=== PATIENT | female | born 1990 | race Caucasian/White ===

== ENCOUNTER → 2017-07-29 13:30 | Outpatient (CLI) | payer OTHER, SELFPAY ==
[2017-07-29 16:00] LABS: Hemoglobin 12.1 g/dl (12.0-15.0); Mean Corp Hgb Conc 32.7 g/gl (32-36); Mean Corpuscular Hgb 22.7 pg (27.0-32.0); Mean Corpuscular Volume 69.3 fL (81-99); Platelet Count 180 K/mm3 (150-450); RBC Distribution Width CV 14.7 % (11.6-14.6); RBC Distribution Width SD 36.4 fl (35.1-43.9); Red Blood Count 5.34 M/mm3 (4.2-5.4); Scan Indicated on CBC? Y/N YES- FLAGS NOTED; White Blood Count 6.5 K/mm3 (4.4-11.0)
[2017-07-29 16:13] LABS: PTHIN 45.7 pg/mL (18.4-80.1); Vitamin B12 492 pg/mL (211-911); Vitamin D,25 Hydroxy 72.1 ng/mL (29.95-100.01)
[2017-07-29 16:36] LABS: Differential Comment SEE COMMENTS
[2017-07-29 16:51] LABS: ALB/GLOB Ratio 0.9 RATIO (0.9-2.4); AST(SGOT) 12 U/L (15-37); Alanine Aminotransfer ALT/SGPT 23 U/L (13-56); Albumin, Serum 3.5 g/dL (3.2-5.0); Alkaline Phosphatase 39 U/L (45-117); Anion Gap 8 (5-15); BUN 19 mg/dL (7-18); BUN/Creat Ratio 23.1 RATIO (10-20); Calcium,Total 8.9 mg/dL (8.5-10.1); Chloride 105 mmol/L (98-107); Cholesterol 160 mg/dL (200); Creatinine, Serum 0.82 mg/dL (0.55-1.02); EST Glomerular Filtration Rate 88 mL/min (>60); Est Glom Filt Rate - Afr Amer 106 mL/min (>60); Ferritin 62 ng/mL (8-252); Globulin 3.7 g/dL (2.2-4.2); Glucose 79 mg/dL (74-106); High Density Lipoprotein 59 mg/dL; Iron 65 ug/dL (50-170); Iron Binding Capacity,Total 315 ug/dL (250-450); Magnesium 2.1 mg/dL (1.6-2.6); Protein, Total 7.2 g/dL (6.4-8.2); Sodium Level 138 mmol/L (136-145); Thyroid Stim Hormone (TSH) 2.16 uIU/mL (0.358-3.74); Triglycerides 198 mg/dL; Very Low Density Lipoprotein 40 mg/dL (5-40)
[2017-08-02 20:09] LABS: Zinc, WHOLE BLOOD 754 ug/dL (440-860)
[2017-08-05 13:05] LABS: Vitamin B1, Thiamine 176.8 nmol/L (66.5-200.0)
== END ==
LOC: BFHLAB 13:34 → MTLAB 13:56
PROVIDERS: Family Provider Family Medicine; PCP Family Medicine
DX: Z98.84 Bariatric surgery status (principal)
CPT/HCPCS: 36415; 80053; 80061; 82306; 82607; 82728; 82746; 83540; 83550; 83735; 83970; 84425; 84443; 84630; 85027

== ENCOUNTER → 2017-11-04 09:28 | Outpatient (CLI) | payer OTHER, SELFPAY ==
--- NOTE | 2017-11-04 09:31 | US_ITS ---
STUDY: ABDOMINAL ULTRASOUND - RIGHT UPPER QUADRANT REASON FOR VISIT: Female, 27 years old. Vertebral quadrant pain TECHNIQUE: Ultrasound evaluation of the right upper quadrant was performed with real-time and static reilly-scale imaging. TECHNICAL QUALITY: Adequate. COMPARISON: CT January 12, 2014. FINDINGS: Liver: The liver measures 12.2 cm. There is normal echogenicity of the liver. The bile ducts are within normal limits. There is hepatic color flow. The direction of portal flow is hepatopetal. There is no demonstrated mass lesion. Gallbladder: Normal distended gallbladder. The gallbladder wall measures 2.8 mm. There is a negative sonographic Mack's sign. There is no pericholecystic fluid. There is biliary sludge dependent within the gallbladder. Common Bile Duct (C.B.D.): The common bile duct measures 3.9 mm. Pancreas: Normal size of the head, body and tail of the pancreas. There is normal echogenicity of the pancreas. There is no demonstrated pancreatic mass or cyst. Right Kidney: Normal size of the right kidney. The right kidney measures 10.5 x 3.6 x 5.3 cm. Normal renal cortex. The right cortex measures 1.2 cm. There is no demonstrated renal mass or cyst. There is no right hydronephrosis. US/Abdomen Limited IMPRESSION: There is biliary sludge dependent within the gallbladder. Electronically Signed: Stuart Moulton MD at 20:12 EDT , Service support ,
== END ==
PROVIDERS: Family Provider Family Medicine; PCP Family Medicine; Visit Provider Family Medicine
DX: R10.11 Right upper quadrant pain (principal)
CPT/HCPCS: 76705

== ENCOUNTER 2017-11-15 09:26 | Day surgery (SDC) | payer OTHER, SELFPAY ==
[2017-11-15] VITALS (8 sets, daily range): BP systolic 85–101; BP diastolic 57–76; PULSE 55–76; RESP 16–18; TEMP 36.2–36.7; O2SAT 99–100; BMI 20.3
[2017-11-15 09:48] LABS: Internal QC Validated? YES +Cl - CLEAR BKGD; Pregnancy, Urine Negative Negative
--- NOTE | 2017-11-15 11:56 | PCM.OPRPT ---
Problem List (1) Epigastric abdominal pain Status: Acute (2) History of Jaki-en-Y gastric bypass Status: Acute Report of Operation Date of Procedure: 11/15/17 Pre-Operative Diagnosis: Epigastric pain and history of Jaki-en-Y gastric bypass. Possible marginal ulcer Post-Operative Diagnosis: History of Jaki-en-Y gastric bypass Surgery/Procedure Performed:: EGD Description of Procedure: The major risks and benefits associated with the procedure were explained to the patient in detail. The patient verbalized understanding and agreement with the same. The patient was then placed in the left lateral decubitus position. IV sedation was started by anesthesia. The endoscope was then advanced under direct visualization over the tongue, into the esophagus and down to the stomach. The stomach pouch was identified as was the anastomosis of the Jaki limb. The GE junction appeared normal. The stomach mucosa appeared normal. At the anastomosis there were 2 visible daniele but no visible ulceration. The Jaki limb was identified in the first 6-12 inches were inspected and the mucosa appeared normal. The scope was retracted into the GE junction and the GE junction appeared normal. The scope was slowly retracted through the esophagus the esophageal mucosa appeared normal as well. Recommendations: I recommend the patient continue her PPI for at least 6 weeks. If this does not help Carafate can be added but as there was no ulcer I do not believe it is needed. I still recommend the patient stop smoking and she says she stopped 2 days ago.
== END 2017-11-15 12:35 | disposition home or self-care (01) ==
LOC: EN 09:27 → AC 09:37
PROVIDERS: Anesthesiology; Family Provider Family Medicine; PCP Family Medicine; Visit Provider Surgery
PROC: 0DJ08ZZ Inspection of Upper Intestinal Tract, Via Natural or Artificial Opening Endoscopic (ICD-10-PCS; CPT 43235; principal; 2017-11-15 10:55)
DX: R10.13 Epigastric pain (principal); Z98.84 Bariatric surgery status; K21.9 Gastro-esophageal reflux disease without esophagitis; E03.9 Hypothyroidism, unspecified; G47.30 Sleep apnea, unspecified; D64.9 Anemia, unspecified; Z79.899 Other long term (current) drug therapy; F17.200 Nicotine dependence, unspecified, uncomplicated; Z87.891 Personal history of nicotine dependence
CPT/HCPCS: 43235; 81025; J7120

== ENCOUNTER 2017-11-21 12:50 | Day surgery (SDC) | payer OTHER, SELFPAY ==
[2017-11-21 13:09] LABS: Internal QC Validated? YES +Cl - CLEAR BKGD; Pregnancy, Urine Negative Negative
[2017-11-21 13:19] VITALS: BP 100/60; PULSE 61; RESP 16; TEMP 37; O2SAT 100; BMI 20.2
[2017-11-21 13:24] LABS: Hematocrit 40.3 % (37-47); Hemoglobin 13.6 g/dl (12.0-15.0); Mean Corp Hgb Conc 33.7 g/gl (32-36); Mean Corpuscular Hgb 23.5 pg (27.0-32.0); Mean Corpuscular Volume 69.6 fL (81-99); Mean Platelet Vol. 10.5 fl (6.2-12.0); Platelet Count 189 K/mm3 (150-450); RBC Distribution Width CV 14.9 % (11.6-14.6); RBC Distribution Width SD 37.6 fl (35.1-43.9); Red Blood Count 5.79 M/mm3 (4.2-5.4); White Blood Count 5.5 K/mm3 (4.4-11.0)
[2017-11-21 13:26] LABS: Scan Indicated on CBC? Y/N YES- FLAGS NOTED
[2017-11-21 13:42] LABS: Differential Comment SCANNED
[2017-11-21 13:46] LABS: Thyroid Stim Hormone (TSH) 0.08 uIU/mL (0.358-3.74)
--- NOTE | 2017-11-21 15:05 | GALL_PTH ---
PATIENT: [place] RICE LOC: [facility] [place] U#:[id number] AGE/SX: 27/F ROOM: RE11/21/[address]: Dr. Gerson Mendez MD : 1990 BED: DIS: 11/21/2017 SPEC #: [id number] RECD: 11/22/17 10:20 STATUS: JO MILTON #: [id number] CRISTOPHER: 11/21/17 15:[address]: Gerson Mendez DEPT: SURGICAL PATHOLOGY RECD BY: Brian Deng ENTERED: 11/22/17 11:29 SP TYPE: ROCHELLE HOYT DR: Dr. Isaias Bruno MD Tissues: Gallbladder, NOS Procedures: Surgery Specimen Level III HEADER OPERATION: Laparoscopic cholecystectomy with IOC PRE-OP DIAGNOSIS: Right upper quadrant pain, nausea, diarrhea TISSUE SUBMITTED: Gallbladder and contents MICROSCOPIC DIAGNOSIS Gallbladder and contents: Mild chronic cholecystitis and focal cholesterolosis. No stones are identified in the container or in the gallbladder. SJ:shahid 11/25/17 COMMENT The gallbladder contains minimal amount of sludge material. MICROSCOPIC DESCRIPTION Slides are reviewed. GROSS DESCRIPTION Received is one container labeled with the patient's name and designated gallbladder. The specimen consists of a gallbladder measuring 9 x 3.2 x 3.2 cm. The external surface is smooth and glistening. Focally, it is granular, hemorrhagic and contains cautery artifact. The lumen of the gallbladder contains minimal sludge and no calculi. The mucosa is bile-stained and without any mass lesions. The gallbladder wall averages 0.1 cm in thickness and is free of mass lesions. [employer] sections of the gallbladder and the cystic duct are submitted in one cassette. / AM:shahid 11/22/17 TC:3 CPT: 54015
[2017-11-21] MEDS: Bupivacaine 0.25% 30 ML Vial (15:47)
--- NOTE | 2017-11-21 15:47 | PCM.OPRPT ---
Problem List (1) Biliary colic Status: Acute (2) Biliary sludge Status: Acute Report of Operation Date of Procedure: 11/21/17 Pre-Operative Diagnosis: Biliary sludge and biliary colic Post-Operative Diagnosis: Same Surgery/Procedure Performed:: Laparoscopic cholecystectomy with cholangiogram Specimen's removed: Gallbladder and contents Description of Procedure: After obtaining informed consent patient was brought back to the operating room. General anesthesia was induced. The abdomen was prepped and draped in usual sterile fashion. A small midline incision was made superior to the umbilicus and deepened to the level of fascia. The fascia was elevated and incised. Next the peritoneum was elevated and incised in the same fashion. Finger sweep was performed and the Cheney trocar was placed into the abdomen. The balloon was inflated. The abdomen was inflated to 15 mmHg. Next a camera was introduced into the abdomen and the abdomen was inspected. Next under direct visualization three 5-mm ports were placed one subxiphoid and 2 subcostal. The Jaki limb was identified and traced back up to the gastric remnant and then traced downward. There were no adhesions or bowel containing Petersons space. The Jaki limb was traced back to the small bowel anastomosis which appeared intact with no scarring or adhesions. The mesentery was intact. Next the gallbladder was elevated and retracted toward the right shoulder. The peritoneum was stripped from the gallbladder. The infundibulum was located and retracted laterally. Next the triangle of Calot was dissected and the cystic duct and cystic artery were identified. Cholangiograms were performed. The Goncalves catheter was used to clamp across the infundibulum and the needle was inserted into the gallbladder. Under fluoroscopy contrast was instilled into the gallbladder and the common duct, cystic duct as well as proximal hepatic ducts were identified. There was good filling of the duodenum. There were no filling defects noted in the common bile duct. The clamp was removed as well as the needle and the infundibulum was grasped once more. Three hemolock clips were placed across the cystic duct. The cystic duct was then divided leaving 2 clips on the stump. The cystic artery was clipped and divided in the same fashion. The hook cautery was then used to take the gallbladder off of the gallbladder bed. Hemostasis was obtained. Gallbladder fossa was irrigated and no active bleeding or bile leakage was noted. Next the camera switched to a 5 mm camera and introduced in the subxiphoid port. An [employer] bag was placed through the umbilical port and the gallbladder was placed into it. The gallbladder was then removed through the umbilical incision. The camera was then reinserted through the umbilical port. The gallbladder fossa was inspected once more and noted to be hemostatic with no leaking bile. The abdomen was suctioned dry the 5 mm ports were removed under direct visualization. The umbilical port was then removed and the air was removed from the abdomen. Next using an 0 Vicryl suture the umbilical fascia was closed in a [id number] fashion. The umbilical port site was irrigated local anesthetic was administered to all the incisions. All the incisions were closed subcuticular 4-0 Monocryl sutures followed by Steri-Strips and dressings. The patient was awoken and taken to PACU in stable condition.
--- NOTE | 2017-11-21 15:52 | PCM.DC.GB ---
Discharge Diet: Light diet - advance as tolerated Discharge Activity: Return to Normal Activity, May Not Drive - for 2-3 days or while taking narcotic pain medicataions., - - Do not drive, work heavy equipment or sign legal documents for 24 hours. May shower in (days): 1 - with the bandage in place. Lifting Restrictions: 20 lbs for 2 weeks Additional Activity Instructions:: Pain medication may cause nausea. You should typically eat light foods as you take your pain medications. Pain medication may also cause constipation. If this is a problem for you, please discuss with your doctor. Call your doctor if your incision/area has: Continuous Slow Oozing, Sudden Increased Bleeding, Increased Pain/ Swelling, Increased Redness, Foul Smelling Discharge, Fever of 101 or Higher Call your doctor if you observe: Fever of 101 or Higher Suture Line Care: Avoid Pulling/Pushing, Avoid Pinching/Bending Additional Dressing/Incision Instructions:: Leave operative bandaids on for 2 days. When you remove dressing, leave Steri-Strips on until your follow-up appointment, or until the Steri-Strips fall off on their own. Allergies/Adverse Reactions: Allergies Penicillins Allergy (Verified 11/19/17 08:13) Hives Medications to take at Discharge Omeprazole [Prilosec] 20 mg PO QHS 01/11/14 calcium citrate 200 mg (950 mg) tablet 200 mg PO QDAY tab 11/11/17 levothyroxine 50 mcg tablet 75 mcg PO DAILY tab 11/11/17 multivitamin,lv-ymej-xaekmnlz tablet 1 tab PO QDAY 11/11/17 Oxycodone HCl/Acetaminophen [Percocet 5/325] 1 - 2 tablet PO Q4H PRN PRN 7 Days #30 tablet 11/21/17 The following prescriptions were given: Oxycodone HCl/Acetaminophen [Percocet 5/325] 1 - 2 tablet PO Q4H PRN PRN 7 Days #30 tablet PRN Reason: Pain Primary Care Physician: Isaias Bruno MD [Primary Care Provider] - Test Results: Test results from this visit will be discussed in further detail at your follow-up appointment, if applicable. Please Follow Up With: Gerson Mendez MD When: Please call to schedule 2 week follow up appointment. [phone]
[2017-11-21 16:03] VITALS: BP 100/60; BP 117/33; PULSE 58; RESP 16; TEMP 36.6; O2SAT 100
[2017-11-21 16:15] VITALS: BP 100/60; BP 96/71; PULSE 51; RESP 16; O2SAT 100
[2017-11-21 16:30] VITALS: BP 100/60; BP 97/64; PULSE 55; RESP 16; O2SAT 98
[2017-11-21 16:45] VITALS: BP 100/60; BP 102/67; PULSE 59; RESP 16; TEMP 36.4; O2SAT 100
[2017-11-21 18:00] VITALS: BP 100/60; BP 96/67; PULSE 58; RESP 18; TEMP 36.4; O2SAT 97
== END 2017-11-21 18:02 | disposition home or self-care (01) ==
LOC: SDC 12:51 → AC 12:52
PROVIDERS: Family Provider Family Medicine; PCP Family Medicine; Visit Provider Surgery
PROC: (CPT 47610; principal; 2017-11-21 14:45)
DX: K80.44 Calculus of bile duct with chronic cholecystitis without obstruction (principal); K83.9 Disease of biliary tract, unspecified; K21.9 Gastro-esophageal reflux disease without esophagitis; E03.9 Hypothyroidism, unspecified; G47.30 Sleep apnea, unspecified; D64.9 Anemia, unspecified; Z98.84 Bariatric surgery status; Z79.899 Other long term (current) drug therapy; F17.200 Nicotine dependence, unspecified, uncomplicated
CPT/HCPCS: 00790; 47563; 74300; 76000; 81025; 84443; 85027; 88304; 93005; J7120; J2405

== ENCOUNTER 2017-11-23 21:25 | Inpatient (IN) | payer OTHER, SELFPAY ==
[2017-11-23 21:26] VITALS: BP 135/98; PULSE 75; RESP 22; TEMP 36.8; O2SAT 98; BMI 21.3
[2017-11-23] MEDS: Ondansetron 4 MG/2 ML Vial IV (21:36)
[2017-11-23] MEDS: Morphine 4 MG/ML Syringe IV ×2 (21:36→22:21)
[2017-11-23] MEDS: 0.9% Normal Saline 1,000 ML 250 ML IV (22:04)
[2017-11-23 22:09] LABS: Absolute Lymphocyte Count 4.99 X10^3/ul (0.83-4.51); Absolute Neutrophil Count 5.6 X10^3/uL (2.0-7.7); Basophil# 0.02 X10^3/uL; Basophil% 0.2 % (0-1); Eosinophil# 0.15 X10^3/uL; Eosinophils% 1.3 % (0-5); Hematocrit 43.8 % (37-47); Hemoglobin 14.7 g/dl (12.0-15.0); Lymphocyte # 4.99 X10^3/ul (4.0); Lymphocyte % 44.1 % (19-41); Mean Corp Hgb Conc 33.6 g/gl (32-36); Mean Corpuscular Hgb 23.4 pg (27.0-32.0); Mean Corpuscular Volume 69.6 fL (81-99); Mean Platelet Vol. 12.1 fl (6.2-12.0); Monocyte# 0.59 X10^3/uL; Monocyte% 5.2 % (0-10); Neutrophil # 5.55 X10^3/uL (2.7-7.7); Neutrophil % 49.1 % (47-70); Platelet Count 221 K/mm3 (150-450); RBC Distribution Width CV 14.8 % (11.6-14.6); RBC Distribution Width SD 37.2 fl (35.1-43.9); Red Blood Count 6.29 M/mm3 (4.2-5.4); White Blood Count 11.3 K/mm3 (4.4-11.0)
[2017-11-23 22:10] LABS: Differential Indicated SCAN CRITERIA MET; POSITIVE COUNT NO; POSITIVE DIFFERENTIAL NO; POSITIVE MORPHOLOGY YES
[2017-11-23 22:14] LABS: AST(SGOT) 46 U/L (15-37); Alanine Aminotransfer ALT/SGPT 99 U/L (13-56); Albumin, Serum 4.5 g/dL (3.2-5.0); Alkaline Phosphatase 56 U/L (45-117); Anion Gap 4 (5-15); BUN 12 mg/dL (7-18); BUN/Creat Ratio 12.1 RATIO (10-20); Bilirubin, Direct 0.13 mg/dL (0.00-0.30); Calcium,Total 9.6 mg/dL (8.5-10.1); Chloride 102 mmol/L (98-107); Creatinine, Serum 0.99 mg/dL (0.55-1.02); EST Glomerular Filtration Rate 71 mL/min (>60); Est Glom Filt Rate - Afr Amer 86 mL/min (>60); Estimated Creatinine Clearance 69.98 ml/min; Globulin 4.4 g/dL (2.2-4.2); Glucose 93 mg/dL (74-106); Lipase 126 U/L (73-393); Potassium 3.7 mmol/L (3.5-5.1); Protein, Total 8.9 g/dL (6.4-8.2); Sodium Level 140 mmol/L (136-145)
[2017-11-23 22:37] LABS: Differential Comment SCANNED
[2017-11-23 22:43] LABS: Bacteria 0 SEEN /hpf (None Seen); Mucous, Urine 0 SEEN /hpf (<or=2+); Red Blood Cells-Urine 0 SEEN /hpf (0-5)
[2017-11-23 23:04] LABS: Color, Urine Yellow (Yellow); Glucose, Dipstick Normal (Normal); Ketone-Dipstick Negative (Negative); Leukocyte Esterase-Dipstick 25 /ul (Negative); Nitrite-Dipstick Negative (Negative); Occult Blood-Urine Negative /ul (Negative); Protein-Dipstick Negative (Negative); Specific Gravity, Urine 1.015 (1.002-1.030); Urine Bilirubin Dipstick Negative (Negative); Urine Clarity Clear (Clear); Urine Urobilinogen Normal (Normal); Urine pH 6.5 (5.0 - 8.0)
[2017-11-23 23:11] LABS: Squamous Epithelial Cells - UA 0-5 SEEN /hpf (5-10); White Blood Cells 0-5 SEEN /hpf (0-5)
--- NOTE | 2017-11-23 23:11 | ED.VISSUMM ---
- ER Visit Summary Date of Service: 11/23/17 Chief Complaint: Severe acute right upper quadrant abdominal pain with nausea History of Present Illness: The patient is a 27 F who presents with acute right upper quadrant pain with nausea. She is status post laparoscopic cholecystectomy by Dr. Gerson [place] on , November 21, 2017. She denies fever, chills night sweats. Denies visual, ocular auditory symptoms. Denies chest pain. She denies shortness of breath, cough difficulty breathing. Denies orthopnea PND. She denies dysuria, frequency, urgency or hematuria. Denies trauma. No skin lesions. Physical Examination: Patient appears in obvious discomfort. Blood pressure slightly elevated 135/98 and respirations 22. Pulse ox is 98% on room air. Head is atraumatic normocephalic. Pupils are equal round reactive. Extraocular muscles are intact. TMs are pearly white with landmarks noted. Nares patent with no drainage. Posterior pharynx without erythema or exudate. Uvula is midline. There is no dysphonia or dysphasia. Trachea is midline. There is no stridor with auscultation of the neck. Heart is regular without murmur, gallop or rub. S1 and S2 are normal. Lungs are clear to auscultation with good movement of air bilaterally. Abdomen is firm with involuntary guarding. She has pain to percussion. There is no CVA tenderness noted. There is no skin lesions noted. Port sites are without infection i.e. erythema, warmth, induration, fluctuance or any drainage. Neuro exam is nonfocal. Test Results: White count is elevated at 11.3 with no shift. Basic minimal panel is marked for an elevated CO2 34. Hepatic profile is marked for an elevated ALT and AST of 99 and 46 respectively. Urine is unremarkable. CT of the abdomen revealed air-fluid levels and suggestive of ileus. There is small amount of fluid noted in the gallbladder fossa. There is an abnormality noted right lobe of the liver. Formal radiology report is pending. Dr. Cloud will follow-up CT results. Emergency Department Course and Treatment: IV was established. She received 4 mg of morphine and 4 mg of Zofran IV push. She required additional dose of morphine prior to transport to radiology suite. After discussion with Dr. Mendez he requested CT of the abdomen pelvis with p.o. and IV contrast. Treatment Plan: The CT of the abdomen pelvis with contrast was reviewed with Dr. Cloud. Patient will be admitted to his service. Disposition: Admit medical surgical unit Impression: 1. Postop abdominal pain status post laparoscopic cholecystectomy 2. Ileus versus early small bowel obstruction 3. Elevated transaminases status post cholecystectomy This note was generated with [employer] dictation software. It may contain incorrect words, spelling, and punctuation that were not noted in review of the chart prior to signing ED Disposition - Plan for ED Patient: Disposition: Acute Care Hospital [facility] Chief Complaint: Abd Pain
[2017-11-23 23:43] VITALS: PULSE 73; PULSE 75; RESP 18; O2SAT 98
[2017-11-23] MEDS: morphine 8 MG/ML Syringe 6 MG IV (23:47)
[2017-11-24] VITALS (9 sets, daily range): BP systolic 97–113; BP diastolic 67–80; PULSE 70–101; RESP 16–20; TEMP 37.1–38.2; O2SAT 95–100; BMI 21.6
--- NOTE | 2017-11-24 00:08 | PCM.HP.STD ---
Problem List (1) Postoperative ileus Status: Acute History of Present Illness Date of Admission: 11/24/17 The patient is a 27 year old F who had a recent laparoscopic cholecystectomy 2 days ago. The patient reports yesterday she was feeling okay but this morning she started having right sided flank pain as well as right upper quadrant pain. She is also having nausea but no vomiting. She does not report any fevers or chills. She says the pain radiates to the back. She says she has not had a bowel movement in 4 days. She is passing flatus and belching. Past Medical History Medical History: Medical History (Last Updated 11/11/17 @ 09:35 by Ely Hood) Anemia D64.9 Anxiety F41.9 GERD (gastroesophageal reflux disease) K21.9 Hypothyroidism E03.9 Sleep apnea G47.30 Allergies Penicillins Allergy (Verified 11/23/17 21:29) Hives Home Medications: Ambulatory Orders Medication Instructions Recorded Omeprazole [Prilosec] 20 mg PO QHS 01/11/14 calcium citrate 200 mg (950 mg) 200 mg PO BID tab 11/11/17 tablet levothyroxine 50 mcg tablet 75 mcg PO DAILY tab 11/11/17 multivitamin,ij-pjaq-hifxuwlj 1 tab PO BID 11/11/17 tablet Oxycodone HCl/Acetaminophen 1 - 2 tablet PO Q4H PRN PRN 7 Days 11/21/17 [Percocet 5/325] #30 tablet Surgical History: Surgical History (Last Updated 11/11/17 @ 09:36 by Ely Hood) History of Jaki-en-Y gastric bypass Z98.84 History of esophagogastroduodenoscopy (EGD) Z98.890 Surgical History: cholecystectomy, - - Jaki-en-Y gastric bypass Smoking Status: Former smoker - *Family History Maternal Family History: Family History (Last Reviewed 11/24/17 @ 00:10 by Gerson Mendez MD) Father Diabetes Grandmother Breast cancer Colon cancer Grandfather Hypertension Heart disease Review of Systems Constitutional: Denies: Anorexia, Chills, Fever HEENT: Denies: Difficulty Swallowing Cardiovascular: Denies: Chest Pain Respiratory: Denies: Cough, Shortness of Breath Gastrointestinal: Reports: Abdominal Pain, Constipation, Nausea. Denies: Diarrhea, Hematemesis, Vomiting Genitourinary: Denies: Dysuria Musculoskeletal: Denies: Joint swelling, Joint Tenderness Skin: Denies: Jaundice Neurological: Denies: Balance problems, Difficulty swallowing Psychiatric: Denies: Anxiety, Depression Hematologic/ Lymphatic: Denies: Anemia VTE Information - Inpt Only VTE Present on Admission: No VTE Mechan Device Prophylaxis: SCD's Patient Problems: Active and Suspected Problems (Last Updated 11/11/17 @ 09:35 by Ely Hood) Postoperative ileus (Acute) - Physical Exam General: Alert, Oriented x3, Cooperative HEENT: PERRLA, EOMI Neck: No JVD Lungs: Normal air movement Cardiovascular: Regular rate, Regular Rhythm Abdomen: Soft, Distended, Tender - Right abdominal tenderness in the upper and lower quadrants., - - Incisions are clean dry and intact with no erythema or ecchymosis. Musculoskeletal: No Muscle Wasting Lymphatic: No Cervical, Supraclavicular, or Inguinal Adenopathy Neurological: Cranial nerves II-XII grossly intact Psych/Mental Status: Normal Affect, Appropriate Vital Signs Temp Pulse Resp BP Pulse Ox 98.3 F 75 18 135/98 H 98 11/23/17 21:26 11/23/17 23:43 11/23/17 23:43 11/23/17 21:26 11/23/17 23:43 Clinical Impression(s) from Imaging Studies Abdomen/Pelvis CT 11/23/17 21:41 IMPRESSION: 1. Moderate free air and mild free fluid, consistent with recent surgery. 2. Wedge-shaped defects in the periphery of the right lobe of the liver, suspicious for focal infarcts. 3. Ileus pattern. Electronically Signed: Heidi Tang MD at 23:57 EDT Tel , Service support , Assessment/Plan All Active Problems (Last Updated 11/11/17 @ 09:35 by Ely Hood) Epigastric abdominal pain (Acute) History of Jaki-en-Y gastric bypass (Acute) Biliary colic (Acute) Biliary sludge (Acute) Postoperative ileus (Acute) 27-year-old female with postoperative ileus 1. The patient reports that she developed right flank pain which was worsening today as compared to yesterday. She reports that she is passing flatus but is also belching. She says she has not had a bowel movement in 4 days. 2. The patient had a CT scan and on CT scan there is minimal abdominal fluid. Her LFTs are normal except for a mildly elevated AST and ALT. I am less suspicious for a biliary leak as IM for constipation and ileus. The CT scan showed dilated fluid-filled small bowel loops as well as a heavy fecal load especially in the right colon. This would explain her right abdominal pain. I will admit her to the floor for observation. I will start her on IV fluids and keep her n.p.o. I will give her mag citrate and a soapsuds enema to try to move along the fecal load. If her situation worsens or LFTs rise or she becomes febrile I will order a HIDA scan to rule out bile leak. 3. The CT scan also shows 2 areas of focal infarct in the liver and I am unsure as to the etiology of this. Her surgery went really well and she had normal anatomy of her blood vessels. She does not have a fever or any other signs of bacteremia but I may order an echo to rule out any leaflet thrombus in the heart. Gerson Mendez MD Pager: [facility] [address] [place] [address], [address] [place] [address] Office:
[2017-11-24] MEDS: Magnesium Citrate 300 ML 150 ML PO (00:53)
[2017-11-24] MEDS: Dextrose 5%-Lactated Ringers 1,000 ML 125 ML IV ×3 (01:36→18:22)
--- NOTE | 2017-11-24 01:41 | NURSING ---
Patient up and ambulating in hallway with at this time.
[2017-11-24] MEDS: Morphine 4 MG/ML Syringe IV ×4 (03:11→20:23)
--- NOTE | 2017-11-24 03:37 | NURSING ---
500ml soap suds enema given at this time per orders, patient tolerated well, awaiting results.
--- NOTE | 2017-11-24 04:19 | NURSING ---
Patient assisted to the bathroom at this time.
[2017-11-24 06:44] LABS: AST(SGOT) 30 U/L (15-37); Alanine Aminotransfer ALT/SGPT 71 U/L (13-56); Albumin, Serum 3.6 g/dL (3.2-5.0); Alkaline Phosphatase 51 U/L (45-117); Anion Gap 6 (5-15); BUN 9 mg/dL (7-18); BUN/Creat Ratio 11.4 RATIO (10-20); Calcium,Total 8.7 mg/dL (8.5-10.1); Chloride 103 mmol/L (98-107); Creatinine, Serum 0.79 mg/dL (0.55-1.02); EST Glomerular Filtration Rate 92 mL/min (>60); Est Glom Filt Rate - Afr Amer 112 mL/min (>60); Globulin 3.5 g/dL (2.2-4.2); Glucose 111 mg/dL (74-106); Magnesium 1.7 mg/dL (1.6-2.6); Phosphorus 3.8 mg/dL (2.5-4.9); Potassium 3.7 mmol/L (3.5-5.1); Protein, Total 7.1 g/dL (6.4-8.2); Sodium Level 138 mmol/L (136-145)
[2017-11-24 07:07] LABS: Absolute Lymphocyte Count 2.36 X10^3/ul (0.83-4.51); Absolute Neutrophil Count 6.6 X10^3/uL (2.0-7.7); Basophil# 0.02 X10^3/uL; Basophil% 0.2 % (0-1); Eosinophil# 0.08 X10^3/uL; Eosinophils% 0.8 % (0-5); Hematocrit 39.4 % (37-47); Hemoglobin 12.7 g/dl (12.0-15.0); Lymphocyte # 2.36 X10^3/ul (4.0); Lymphocyte % 24.3 % (19-41); Mean Corp Hgb Conc 32.2 g/gl (32-36); Mean Corpuscular Hgb 23.2 pg (27.0-32.0); Mean Platelet Vol. 11.2 fl (6.2-12.0); Monocyte# 0.62 X10^3/uL; Monocyte% 6.4 % (0-10); Neutrophil # 6.62 X10^3/uL (2.7-7.7); Neutrophil % 68.3 % (47-70); Platelet Count 159 K/mm3 (150-450); RBC Distribution Width CV 14.5 % (11.6-14.6); RBC Distribution Width SD 38.2 fl (35.1-43.9); Red Blood Count 5.47 M/mm3 (4.2-5.4); White Blood Count 9.7 K/mm3 (4.4-11.0)
[2017-11-24] MEDS: Morphine 2 MG/ML Syringe IV (07:17)
[2017-11-24 07:35] LABS: Differential Indicated SCAN CRITERIA MET; POSITIVE COUNT NO; POSITIVE DIFFERENTIAL NO; POSITIVE MORPHOLOGY YES
--- NOTE | 2017-11-24 08:26 | NURSING ---
Assisted into chair. Painful with ambulation. Splinting Pillow to Abd helped. Belching. C.o Shoulder pain as well. Nausea and felt like vomiting with ambulating to chair. Dr. Mendez just recently in to see pt.
--- NOTE | 2017-11-24 08:52 | PCM.PN.SRG ---
Patient Problems: Active and Suspected Problems (Last Updated 11/11/17 @ 09:35 by Ely Hood) Postoperative ileus (Acute) Subjective: Patient reports she still having abdominal pain. No vomiting. She reports that she is not passing flatus anymore. She had an enema and mag citrate but has not had a bowel movement. - Physical Exam General: Alert, Oriented x3, Cooperative Lungs: Clear to auscultation, Normal air movement, No rales Cardiovascular: Regular rate, Regular Rhythm Abdomen: Distended, Tender - Diffuse abdominal tenderness. Musculoskeletal: No Muscle Wasting Neurological: Cranial nerves II-XII grossly intact Psych/Mental Status: Normal Affect Vital Signs Temp Pulse Resp BP Pulse Ox 99.1 F 84 20 H 113/80 95 11/24/17 08:28 11/24/17 08:28 11/24/17 08:28 11/24/17 08:28 11/24/17 08:28 Oxygen Delivery Method Room Air Weight: 122 lb 1.6 oz Body Mass Index (BMI) 21.6 Intake and Output for Last 24 Hours 11/22/17 11/23/17 11/24/17 23:59 23:59 23:59 Intake Total 1557 / 1557 Balance 1557 / 1557 Laboratory Tests Past 24 Hrs 11/24/17 11/24/17 05:42 05:42 WBC 9.7 RBC 5.47 H Hgb 12.7 Hct 39.4 MCV 72.0 L MCH 23.2 L MCHC 32.2 RDW 14.5 RDW Differential 38.2 Plt Count 159 MPV 11.2 Immature Gran % (Auto) 0.000 Neut % (Auto) 68.3 Lymph % (Auto) 24.3 [place] % (Auto) 6.4 Eos % (Auto) 0.8 Baso % (Auto) 0.2 Absolute Neuts (auto) 6.6 Absolute Lymphs (auto) 2.36 Total Counted Not Reportable Sodium 138 Potassium 3.7 Chloride 103 Carbon Dioxide 29.0 Anion Gap 6 BUN 9 Creatinine 0.79 Estim Creat Clear Calc 87.70 Est GFR (MDRD) Af Amer 112 Est GFR (MDRD) Non-Af 92 BUN/Creatinine Ratio 11.4 Glucose 111 H Calcium 8.7 Phosphorus 3.8 Magnesium 1.7 Total Bilirubin 0.40 AST 30 ALT 71 H Alkaline Phosphatase 51 Total Protein 7.1 Albumin 3.6 Globulin 3.5 Albumin/Globulin Ratio 1.0 Clinical Impression(s) from Imaging Studies Abdomen/Pelvis CT 11/23/17 21:41 IMPRESSION: 1. Moderate free air and mild free fluid, consistent with recent surgery. 2. Wedge-shaped defects in the periphery of the right lobe of the liver, suspicious for focal infarcts. 3. Ileus pattern. Electronically Signed: Heidi Tang MD at 23:57 EDT Tel , Service support , KUB X-Ray 11/24/17 05:00 IMPRESSION: Persistent gaseous distention of large and small bowel loops, which may represent an ileus. Electronically Signed: Mohan Moreno MD at 5:29 EDT , Service support , Medical Necessity - Tobacco Use Smoking Status: Former smoker Assessment/Plan All Active Problems (Last Updated 11/11/17 @ 09:35 by Ely Hood) Epigastric abdominal pain (Acute) History of Jaki-en-Y gastric bypass (Acute) Biliary colic (Acute) Biliary sludge (Acute) Postoperative ileus (Acute) 27-year-old female postoperative ileus 1. Patient reports he is not passing any flatus. She had an x-ray this morning which shows diffuse ileus pattern. On CT yesterday there is minimal fluid. Today her white count has returned to normal with no antibiotics. Her LFTs are normal as well. I think this is a postoperative ileus and I will treat her with IV fluids and n.p.o. and await bowel function. I encourage ambulation and gum chewing. Gerson Mendez MD Pager: [facility] [address] [place] [address], [address] [place] [address] Office:
[2017-11-24] MEDS: 0.9% NaCl Peripheral Flush Adult/Peds IV (09:57)
--- NOTE | 2017-11-24 10:07 | NURSING ---
Just got back in bed from walking in [place] with her . No flatus yet. Painful, 4mg Morphine IV given at this time.
[2017-11-24] MEDS: 0.9% Normal Saline 1,000 ML 999 ML IV (17:35)
--- NOTE | 2017-11-24 17:37 | NURSING ---
Vitals re-checked per Dr. Mendez whom was made aware of Vitals that were taken and recorded at 1637. Lactic Acid ordered as well as bolus. Bolus going at this time. Pt awake, morphine was effective for 7 out of 10 pain which is now 4 out of 10 pain and just feels like discomfort now. Dr. Mendez wants vitals rechecked and report vitals to him. Pt has walked in [place] several times today but still not passing flatus.
--- NOTE | 2017-11-24 17:49 | NURSING ---
Lab in room with pt. Dr. Mendez in to see pt at this time. Awaiting CBC results.
[2017-11-24 18:08] LABS: Absolute Lymphocyte Count 2.04 X10^3/ul (0.83-4.51); Absolute Neutrophil Count 4.3 X10^3/uL (2.0-7.7); Basophil# 0.02 X10^3/uL; Basophil% 0.3 % (0-1); Eosinophil# 0.09 X10^3/uL; Eosinophils% 1.3 % (0-5); Hemoglobin 12.4 g/dl (12.0-15.0); Lymphocyte # 2.04 X10^3/ul (4.0); Lymphocyte % 29.3 % (19-41); Mean Corp Hgb Conc 31.8 g/gl (32-36); Mean Corpuscular Hgb 22.7 pg (27.0-32.0); Mean Corpuscular Volume 71.4 fL (81-99); Monocyte# 0.54 X10^3/uL; Monocyte% 7.8 % (0-10); Neutrophil # 4.27 X10^3/uL (2.7-7.7); Neutrophil % 61.3 % (47-70); Platelet Count 145 K/mm3 (150-450); RBC Distribution Width CV 14.5 % (11.6-14.6); Red Blood Count 5.46 M/mm3 (4.2-5.4)
[2017-11-24 18:14] LABS: Differential Indicated SCAN CRITERIA MET; POSITIVE COUNT NO; POSITIVE DIFFERENTIAL NO; POSITIVE MORPHOLOGY YES
--- NOTE | 2017-11-24 18:15 | PCM.PN.BLA ---
Progress Note I was called as the patient's vitals had changed. The patient had a low-grade fever of 100.4 and pressure at 97/64 with pulse of 100. The patient has a normal blood pressure in the high 90s. This is what her blood pressure was at both the office visit and during surgery last week. I was concerned that the fever and I came in to see the patient. The patient's abdomen is soft distended and tender with no guarding. She actually reports that she feels better than she did this morning. She is still not passing flatus but having no worsening of her pain. She is ambulating and appears quite comfortable. I ordered a 500 cc bolus and I checked a stat CBC and the results showed a normal white count with no left shift. At this time I do not think that she needs a CAT scan as if she had a perforation or bile leak I would expect that the white count would be rising and she is looking improved instead of worse than this morning. I encouraged once more incentive spirometer use and ambulation. I will also order a Dulcolax suppository to help things move along as she has not had a bowel movement after mag citrate and soapsuds enema. Gerson Mendez MD Pager: [facility] [address] [place] [address], [address] [place] [address] Office:
[2017-11-24 18:29] LABS: Lactic Acid 0.7 mmol/L (0.4-2.0)
[2017-11-24 18:38] LABS: Differential Comment SCANNED; Platelet Estimate SLT DEC (ADEQ)
[2017-11-24] MEDS: Bisacodyl 10 MG Suppository RECTAL (20:24)
[2017-11-24] MEDS: Ondansetron 4 MG/2 ML Vial 8 MG IV (20:53)
[2017-11-25] VITALS: BP 103/73; PULSE 95; RESP 16; TEMP 37.4; O2SAT 97
[2017-11-25] MEDS: Morphine 4 MG/ML Syringe IV ×2 (00:25→20:44)
[2017-11-25] MEDS: Dextrose 5%-Lactated Ringers 1,000 ML 125 ML IV ×2 (02:50→20:54)
[2017-11-25 02:54] VITALS: BP 99/72; PULSE 87; RESP 16; TEMP 38.1; O2SAT 96
[2017-11-25] MEDS: Morphine 2 MG/ML Syringe IV ×3 (03:01→13:04)
[2017-11-25 06:10] VITALS: BP 99/72; PULSE 86; RESP 16; TEMP 37.3; O2SAT 97
[2017-11-25] MEDS: 0.9% NaCl Peripheral Flush Adult/Peds IV (06:29)
[2017-11-25 06:40] LABS: Absolute Lymphocyte Count 2.52 X10^3/ul (0.83-4.51); Absolute Neutrophil Count 3.7 X10^3/uL (2.0-7.7); Basophil# 0.02 X10^3/uL; Basophil% 0.3 % (0-1); Eosinophil# 0.14 X10^3/uL; Hematocrit 39.2 % (37-47); Hemoglobin 12.5 g/dl (12.0-15.0); Lymphocyte # 2.52 X10^3/ul (4.0); Lymphocyte % 36.5 % (19-41); Mean Corp Hgb Conc 31.9 g/gl (32-36); Mean Corpuscular Volume 72.1 fL (81-99); Mean Platelet Vol. 10.5 fl (6.2-12.0); Monocyte# 0.56 X10^3/uL; Monocyte% 8.1 % (0-10); Neutrophil # 3.67 X10^3/uL (2.7-7.7); Neutrophil % 53.1 % (47-70); Platelet Count 148 K/mm3 (150-450); RBC Distribution Width CV 14.4 % (11.6-14.6); RBC Distribution Width SD 37.8 fl (35.1-43.9); Red Blood Count 5.44 M/mm3 (4.2-5.4); White Blood Count 6.9 K/mm3 (4.4-11.0)
[2017-11-25 06:58] LABS: Differential Indicated SCAN CRITERIA MET; POSITIVE COUNT NO; POSITIVE DIFFERENTIAL NO; POSITIVE MORPHOLOGY YES
[2017-11-25 07:08] LABS: ALB/GLOB Ratio 0.8 RATIO (0.9-2.4); AST(SGOT) 23 U/L (15-37); Alanine Aminotransfer ALT/SGPT 44 U/L (13-56); Albumin, Serum 2.8 g/dL (3.2-5.0); Alkaline Phosphatase 50 U/L (45-117); Anion Gap 5 (5-15); BUN 8 mg/dL (7-18); BUN/Creat Ratio 9.9 RATIO (10-20); Calcium,Total 8.7 mg/dL (8.5-10.1); Chloride 104 mmol/L (98-107); EST Glomerular Filtration Rate 90 mL/min (>60); Est Glom Filt Rate - Afr Amer 109 mL/min (>60); Estimated Creatinine Clearance 86.61 ml/min; Globulin 3.3 g/dL (2.2-4.2); Glucose 101 mg/dL (74-106); Potassium 4.4 mmol/L (3.5-5.1); Protein, Total 6.1 g/dL (6.4-8.2); Sodium Level 140 mmol/L (136-145)
--- NOTE | 2017-11-25 08:45 | PCM.PN.SRG ---
Patient Problems: Active and Suspected Problems (Last Updated 11/11/17 @ 09:35 by Ely Hood) Postoperative ileus (Acute) Subjective: Patient is doing a little better this morning. She is comfortable but is not passing any flatus. She did have some nausea last night but that has resolved. No vomiting. - Physical Exam General: Alert, Oriented x3, Cooperative HEENT: Atraumatic Neck: Supple Lungs: Normal air movement Cardiovascular: Regular rate, Regular Rhythm Abdomen: Distended, Tender - Diffusely tender with no guarding Extremities: No clubbing Skin: No rashes Neurological: Cranial nerves II-XII grossly intact Psych/Mental Status: Normal Affect Vital Signs Temp Pulse Resp BP Pulse Ox 99.1 F 86 16 99/72 97 11/25/17 06:10 11/25/17 06:10 11/25/17 06:10 11/25/17 06:10 11/25/17 06:10 Oxygen Delivery Method Room Air Weight: 122 lb 1.6 oz Body Mass Index (BMI) 21.6 Intake and Output for Last 24 Hours 11/23/17 11/24/17 11/25/17 23:59 23:59 23:59 Intake Total 3779 / 3779 1508 / 1508 Output Total 700 / 700 Balance 3779 / 3779 808 / 808 Laboratory Tests Past 24 Hrs 11/24/17 11/24/17 11/25/17 17:50 17:50 05:10 WBC 7.0 6.9 RBC 5.46 H 5.44 H Hgb 12.4 12.5 Hct 39.0 39.2 MCV 71.4 L 72.1 L MCH 22.7 L 23.0 L MCHC 31.8 L 31.9 L RDW 14.5 14.4 RDW Differential 38.0 37.8 Plt Count 145 L 148 L MPV 11.0 10.5 Immature Gran % (Auto) 0.000 0.000 Neut % (Auto) 61.3 53.1 Lymph % (Auto) 29.3 36.5 [place] % (Auto) 7.8 8.1 Eos % (Auto) 1.3 2.0 Baso % (Auto) 0.3 0.3 Absolute Neuts (auto) 4.3 3.7 Absolute Lymphs (auto) 2.04 2.52 Total Counted Not Reportable Pending Differential Comment SCANNED Platelet Estimate SLT DEC Sodium Potassium Chloride Carbon Dioxide Anion Gap BUN Creatinine Estim Creat Clear Calc Est GFR (MDRD) Af Amer Est GFR (MDRD) Non-Af BUN/Creatinine Ratio Glucose Lactic Acid 0.7 Calcium Total Bilirubin AST ALT Alkaline Phosphatase Total Protein Albumin Globulin Albumin/Globulin Ratio 11/25/17 05:10 WBC RBC Hgb Hct MCV MCH MCHC RDW RDW Differential Plt Count MPV Immature Gran % (Auto) Neut % (Auto) Lymph % (Auto) [place] % (Auto) Eos % (Auto) Baso % (Auto) Absolute Neuts (auto) Absolute Lymphs (auto) Total Counted Differential Comment Platelet Estimate Sodium 140 Potassium 4.4 Chloride 104 Carbon Dioxide 31.0 Anion Gap 5 BUN 8 Creatinine 0.80 Estim Creat Clear Calc 86.61 Est GFR (MDRD) Af Amer 109 Est GFR (MDRD) Non-Af 90 BUN/Creatinine Ratio 9.9 L Glucose 101 Lactic Acid Calcium 8.7 Total Bilirubin 0.80 AST 23 ALT 44 Alkaline Phosphatase 50 Total Protein 6.1 L Albumin 2.8 L Globulin 3.3 Albumin/Globulin Ratio 0.8 L Medical Necessity - Tobacco Use Smoking Status: Former smoker Assessment/Plan All Active Problems (Last Updated 11/11/17 @ 09:35 by Ely Hood) Epigastric abdominal pain (Acute) History of Jaki-en-Y gastric bypass (Acute) Biliary colic (Acute) Biliary sludge (Acute) Postoperative ileus (Acute) 27-year-old female with postoperative ileus 1. Patient reports her pain is improved from yesterday but she still not passing any gas and still feeling distended. She was comfortable this morning and did sleep overnight. She had a low-grade fever but I encouraged incentive spirometer use last night and she is afebrile this morning. 2. Continue n.p.o./IV fluids. X-ray in the morning. Encourage ambulation and await bowel function. 3. The patient had a KUB this morning which showed distended small bowel with air-fluid levels as well as a large fecal burden in the right colon which has not moved since CAT scan. I did give her Dulcolax suppository yesterday. I think a bile leak or perforation of the bowel is less likely as the patient is not having an increase in her white count or worsening of her clinical picture. Gerson Mendez MD Pager: [facility] [address] [place] [address], [address] [place] [address] Office:
[2017-11-25 09:28] VITALS: BP 98/63; PULSE 95; RESP 16; TEMP 36.8; O2SAT 95
--- NOTE | 2017-11-25 11:40 | CASEMGMT ---
RN VINICIUS Face to Face with patient for initial transition planning/care coordination assessment. RN CM introduced self and role at [facility]. Patient lying in bed, alert and oriented. Patient willing to participate in assessment and is able to answer all questions appropriately. Care providers, pharmacy, and demographics verified. See link attached. Patient wishes to discharge home, denies need for home health at this time. Patient states she has no further needs or concerns at this time. CM to follow for discharge planning needs that may arise. Disposition Plan: Patient to discharge home with family support and follow-up plans in place.
[2017-11-25 13:19] VITALS: BP 110/68; PULSE 95; RESP 16; TEMP 37; O2SAT 94
[2017-11-25] MEDS: Fleet Enema 1 ML RECTAL (18:16)
[2017-11-25] MEDS: Ondansetron 4 MG/2 ML Vial 8 MG IV (20:47)
[2017-11-25 20:50] VITALS: BP 101/72; PULSE 95; RESP 16; TEMP 37.7; O2SAT 97
[2017-11-26 02:30] VITALS: BP 101/64; PULSE 86; RESP 16; TEMP 36.9; O2SAT 100
[2017-11-26] MEDS: Dextrose 5%-Lactated Ringers 1,000 ML 125 ML IV ×2 (05:03→17:33)
[2017-11-26] MEDS: Morphine 2 MG/ML Syringe IV (05:11)
[2017-11-26 06:39] LABS: Absolute Neutrophil Count 3.2 X10^3/uL (2.0-7.7); Basophil# 0.02 X10^3/uL; Basophil% 0.3 % (0-1); Eosinophil# 0.17 X10^3/uL; Eosinophils% 2.8 % (0-5); Hematocrit 35.7 % (37-47); Hemoglobin 12.1 g/dl (12.0-15.0); Lymphocyte % 33.4 % (19-41); Mean Corp Hgb Conc 33.9 g/gl (32-36); Mean Corpuscular Hgb 23.6 pg (27.0-32.0); Mean Corpuscular Volume 69.6 fL (81-99); Mean Platelet Vol. 11.5 fl (6.2-12.0); Monocyte# 0.55 X10^3/uL; Monocyte% 9.2 % (0-10); Neutrophil # 3.24 X10^3/uL (2.7-7.7); Neutrophil % 54.1 % (47-70); Platelet Count 192 K/mm3 (150-450); RBC Distribution Width CV 14.2 % (11.6-14.6); RBC Distribution Width SD 35.4 fl (35.1-43.9); Red Blood Count 5.13 M/mm3 (4.2-5.4)
[2017-11-26 06:46] LABS: POSITIVE COUNT NO; POSITIVE DIFFERENTIAL NO
[2017-11-26 06:47] LABS: Differential Indicated SCAN CRITERIA MET; POSITIVE MORPHOLOGY YES
[2017-11-26 06:50] LABS: Anion Gap 8 (5-15); BUN 6 mg/dL (7-18); Calcium,Total 8.7 mg/dL (8.5-10.1); Chloride 104 mmol/L (98-107); Creatinine, Serum 0.66 mg/dL (0.55-1.02); EST Glomerular Filtration Rate 112 mL/min (>60); Est Glom Filt Rate - Afr Amer 135 mL/min (>60); Estimated Creatinine Clearance 104.98 ml/min; Glucose 108 mg/dL (74-106); Potassium 4.1 mmol/L (3.5-5.1); Sodium Level 142 mmol/L (136-145)
[2017-11-26] MEDS: 0.9% NaCl Peripheral Flush Adult/Peds IV ×4 (07:01→21:10)
[2017-11-26 07:10] LABS: Differential Comment SCANNED
--- NOTE | 2017-11-26 07:17 | PCM.PN.SRG ---
Patient Problems: Active and Suspected Problems (Last Updated 11/11/17 @ 09:35 by Ely Hood) Postoperative ileus (Acute) Subjective: Patient still reports no flatus or bowel movement despite enema again yesterday. Her abdominal pain is about the same she rates it about a 7. She is having no nausea or vomiting. The pain localizes to the right lower quadrant. - Physical Exam General: Alert, Oriented x3, Cooperative, No apparent distress HEENT: Atraumatic, PERRLA Cardiovascular: Regular rate, Regular Rhythm Abdomen: Soft, Distended, Tender - Diffusely mildly tender but mostly in the right lower quadrant. Extremities: No clubbing Vital Signs Temp Pulse Resp BP Pulse Ox 98.5 F 86 16 101/64 100 11/26/17 02:30 11/26/17 02:30 11/26/17 02:30 11/26/17 02:30 11/26/17 02:30 Oxygen Delivery Method Room Air Weight: 122 lb 1.6 oz Body Mass Index (BMI) 21.6 Intake and Output for Last 24 Hours 11/24/17 11/25/17 11/26/17 23:59 23:59 23:59 Intake Total 3779 / 3779 3009 / 3009 1313 / 1313 Output Total 1200 / 1200 Balance 3779 / 3779 1809 / 1809 1313 / 1313 Laboratory Tests Past 24 Hrs 11/25/17 11/26/17 11/26/17 05:10 06:06 06:06 WBC 6.0 RBC 5.13 Hgb 12.1 Hct 35.7 L MCV 69.6 L MCH 23.6 L MCHC 33.9 RDW 14.2 RDW Differential 35.4 Plt Count 192 MPV 11.5 Immature Gran % (Auto) 0.200 Neut % (Auto) 54.1 Lymph % (Auto) 33.4 [place] % (Auto) 9.2 Eos % (Auto) 2.8 Baso % (Auto) 0.3 Absolute Neuts (auto) 3.2 Absolute Lymphs (auto) 2.00 Total Counted Not Reportable Not Reportable Differential Comment COMMENT SCANNED Sodium 142 Potassium 4.1 Chloride 104 Carbon Dioxide 30.0 Anion Gap 8 BUN 6 L Creatinine 0.66 Estim Creat Clear Calc 104.98 Est GFR (MDRD) Af Amer 135 Est GFR (MDRD) Non-Af 112 BUN/Creatinine Ratio 9.0 L Glucose 108 H Calcium 8.7 Clinical Impression(s) from Imaging Studies Abdomen X-Ray 11/25/17 06:30 IMPRESSION: Residual free intra-abdominal free air with fluid. Large amount of fecal material is seen in the right hemicolon. Less gaseous distention of the small bowel loops. Electronically Signed: George Neves MD at 10:23 EDT Tel [phone], Service support , Medical Necessity - Tobacco Use Smoking Status: Former smoker Assessment/Plan All Active Problems (Last Updated 11/11/17 @ 09:35 by Ely Hood) Epigastric abdominal pain (Acute) History of Jaki-en-Y gastric bypass (Acute) Biliary colic (Acute) Biliary sludge (Acute) Postoperative ileus (Acute) 27-year-old female status post laparoscopic cholecystectomy with postoperative ileus 1. Patient continues to not pass gas and on her KUB this morning she does have distended small bowel loops as well as the stool in the right colon which has not moved at all. The patient's white count and vitals continue to be stable. The patient appears very comfortable and her abdomen is soft with no guarding. 2. I gave her fleets enema yesterday I will try some milk of magnesia today to try to move the stool in the right colon. 3. Continue n.p.o. and IV fluids. Encourage ambulation and incentive spirometer. Gerson Mendez MD Pager: [facility] [address] [place] [address], [address] [place] [address] Office:
[2017-11-26] MEDS: Magnesium Hydroxide 30 ML UDC PO (08:28)
[2017-11-26 08:30] VITALS: BP 114/80; PULSE 90; RESP 16; TEMP 36.8; O2SAT 98
[2017-11-26] MEDS: Ondansetron 4 MG/2 ML Vial 8 MG IV ×2 (11:44→21:10)
[2017-11-26] MEDS: Magnesium Citrate 300 ML PO (13:49)
[2017-11-26 14:53] VITALS: BP 109/67; PULSE 91; RESP 16; TEMP 37.1; O2SAT 99
[2017-11-26 20:55] VITALS: BP 101/66; PULSE 83; RESP 16; TEMP 36.9; O2SAT 98
[2017-11-27] MEDS: Dextrose 5%-Lactated Ringers 1,000 ML 125 ML IV ×2 (00:29→08:34)
[2017-11-27 03:15] VITALS: BP 93/64; PULSE 76; RESP 16; TEMP 36.6; O2SAT 97
[2017-11-27 06:34] LABS: Absolute Lymphocyte Count 2.02 X10^3/ul (0.83-4.51); Absolute Neutrophil Count 2.6 X10^3/uL (2.0-7.7); Basophil# 0.02 X10^3/uL; Basophil% 0.4 % (0-1); Eosinophil# 0.12 X10^3/uL; Eosinophils% 2.3 % (0-5); Hemoglobin 10.9 g/dl (12.0-15.0); Lymphocyte # 2.02 X10^3/ul (4.0); Lymphocyte % 38.1 % (19-41); Mean Corpuscular Hgb 23.3 pg (27.0-32.0); Mean Corpuscular Volume 70.5 fL (81-99); Mean Platelet Vol. 12.5 fl (6.2-12.0); Monocyte% 9.4 % (0-10); Neutrophil # 2.63 X10^3/uL (2.7-7.7); Neutrophil % 49.6 % (47-70); Platelet Count 189 K/mm3 (150-450); RBC Distribution Width SD 35.1 fl (35.1-43.9); Red Blood Count 4.68 M/mm3 (4.2-5.4); White Blood Count 5.3 K/mm3 (4.4-11.0)
[2017-11-27 06:35] LABS: Differential Indicated SCAN CRITERIA MET; POSITIVE COUNT NO; POSITIVE DIFFERENTIAL NO; POSITIVE MORPHOLOGY YES
[2017-11-27 06:49] LABS: Differential Comment SCANNED; Hypochromasia 3+; Microcytosis 2+
[2017-11-27 06:51] LABS: Anion Gap 10 (5-15); BUN 5 mg/dL (7-18); BUN/Creat Ratio 8.8 RATIO (10-20); Calcium,Total 8.3 mg/dL (8.5-10.1); Chloride 105 mmol/L (98-107); Creatinine, Serum 0.57 mg/dL (0.55-1.02); EST Glomerular Filtration Rate 133 mL/min (>60); Est Glom Filt Rate - Afr Amer 161 mL/min (>60); Estimated Creatinine Clearance 121.55 ml/min; Glucose 95 mg/dL (74-106); Phosphorus 4.2 mg/dL (2.5-4.9); Potassium 3.8 mmol/L (3.5-5.1); Sodium Level 143 mmol/L (136-145)
[2017-11-27 08:30] VITALS: BP 99/62; PULSE 71; RESP 16; TEMP 36.5; O2SAT 98
--- NOTE | 2017-11-27 09:49 | PCM.PN.SRG ---
Patient Problems: Active and Suspected Problems (Last Updated 11/11/17 @ 09:35 by Ely Hood) Postoperative ileus (Acute) Subjective: Patient reports she is passing a lot of gas and had multiple bowel movements overnight. She says she has minimal abdominal discomfort this morning. No nausea or vomiting. - Physical Exam General: Alert, Oriented x3, Cooperative Lungs: Normal air movement Cardiovascular: Regular rate, Regular Rhythm Abdomen: - - Abdomen is soft and less distended. Nontender this morning. Vital Signs Temp Pulse Resp BP Pulse Ox 97.7 F L 71 16 99/62 98 11/27/17 08:30 11/27/17 08:30 11/27/17 08:30 11/27/17 08:30 11/27/17 08:30 Oxygen Delivery Method Room Air Weight: 122 lb 2.177 oz Body Mass Index (BMI) 21.6 Intake and Output for Last 24 Hours 11/25/17 11/26/17 11/27/17 23:59 23:59 23:59 Intake Total 3009 / 3009 2820 / 2820 1248 / 1248 Output Total 1200 / 1200 500 / 500 Balance 1809 / 1809 2320 / 2320 1248 / 1248 Laboratory Tests Past 24 Hrs 11/27/17 11/27/17 05:10 05:10 WBC 5.3 RBC 4.68 Hgb 10.9 L Hct 33.0 L MCV 70.5 L MCH 23.3 L MCHC 33.0 RDW 14.0 RDW Differential 35.1 Plt Count 189 MPV 12.5 H Immature Gran % (Auto) 0.200 Neut % (Auto) 49.6 Lymph % (Auto) 38.1 [place] % (Auto) 9.4 Eos % (Auto) 2.3 Baso % (Auto) 0.4 Absolute Neuts (auto) 2.6 Absolute Lymphs (auto) 2.02 Total Counted Not Reportable Differential Comment SCANNED Hypochromasia 3+ Microcytosis 2+ Sodium 143 Potassium 3.8 Chloride 105 Carbon Dioxide 28.0 Anion Gap 10 BUN 5 L Creatinine 0.57 Estim Creat Clear Calc 121.55 Est GFR (MDRD) Af Amer 161 Est GFR (MDRD) Non-Af 133 BUN/Creatinine Ratio 8.8 L Glucose 95 Calcium 8.3 L Phosphorus 4.2 Magnesium 2.0 Medical Necessity - Tobacco Use Smoking Status: Former smoker Assessment/Plan All Active Problems (Last Updated 11/11/17 @ 09:35 by Ely Hood) Epigastric abdominal pain (Acute) History of Jaki-en-Y gastric bypass (Acute) Biliary colic (Acute) Biliary sludge (Acute) Postoperative ileus (Acute) 27-year-old female with postoperative ileus 1. Patient reports she is doing well this morning and she is passing gas and having bowel movements and I will start her on a clear liquid diet and advance her as tolerated. 2. If she is tolerating regular diet she may be discharged home Gerson Mendez MD Pager: [facility] [address] [place] [address], [address] [place] [address] Office:
--- NOTE | 2017-11-27 13:24 | PCM.DC.GB ---
Discharge Diet: Light diet - advance as tolerated Discharge Activity: Return to Normal Activity May shower in (days): 1 - with the bandage in place. Call your doctor if your incision/area has: Continuous Slow Oozing, Sudden Increased Bleeding, Increased Pain/ Swelling, Increased Redness, Foul Smelling Discharge, Fever of 101 or Higher Call your doctor if you observe: Fever of 101 or Higher Suture Line Care: Avoid Pulling/Pushing, Avoid Pinching/Bending Allergies/Adverse Reactions: Allergies Penicillins Allergy (Verified 11/23/17 21:29) Hives Medications to take at Discharge Omeprazole [Prilosec] 20 mg PO DAILY 01/11/14 calcium citrate 200 mg (950 mg) tablet 200 mg PO BID tab 11/11/17 levothyroxine 50 mcg tablet 75 mcg PO DAILY tab 11/11/17 multivitamin,ku-gfeo-demrhoms tablet 1 tab PO BID 11/11/17 Oxycodone HCl/Acetaminophen [Percocet 5/325] 1 - 2 tablet PO Q4H PRN PRN 7 Days #30 tablet 11/21/17 Primary Care Physician: Isaias Bruno MD [Primary Care Provider] - Test Results: Test results from this visit will be discussed in further detail at your follow-up appointment, if applicable. Please Follow Up With: Gerson Mendez MD When: Please call to schedule 2 week follow up appointment. [phone]
--- NOTE | 2017-11-27 13:25 | PCM.DC.SUM ---
Discharge Date and Diagnosis - Problem List Patient Problems: Active and Suspected Problems (Last Updated 11/11/17 @ 09:35 by Ely Hood) Postoperative ileus (Acute) Date of Admission: 11/24/17 Date of Discharge: 11/27/17 - Primary Discharge Diagnosis Active and Suspected Problems (Last Updated 11/11/17 @ 09:35 by Ely Hood) Postoperative ileus (Acute) Hospital Course and Treatment Imaging Results: 11/27/17 05:55 Abdomen Single View (Portable) [RAD] AM (NON MEDS) Clinical Impression(s) from Imaging Studies Abdomen/Pelvis CT 11/23/17 21:41 IMPRESSION: 1. Moderate free air and mild free fluid, consistent with recent surgery. 2. Wedge-shaped defects in the periphery of the right lobe of the liver, suspicious for focal infarcts. 3. Ileus pattern. Electronically Signed: Heidi Tang MD at 23:57 EDT Tel , Service support , KUB X-Ray 11/24/17 05:00 IMPRESSION: Persistent gaseous distention of large and small bowel loops, which may represent an ileus. Electronically Signed: Mohan Moreno MD at 5:29 EDT , Service support , Abdomen X-Ray 11/25/17 06:30 IMPRESSION: Residual free intra-abdominal free air with fluid. Large amount of fecal material is seen in the right hemicolon. Less gaseous distention of the small bowel loops. Electronically Signed: George Neves MD at 10:23 EDT Tel [phone], Service support , Abdomen X-Ray 11/26/17 05:55 IMPRESSION: Stable examination as compared to prior study dated NOVEMBER 25, 2017. Electronically Signed: George Neves MD at 10:26 EDT Tel [phone], Service support , KUB X-Ray 11/27/17 05:55 IMPRESSION: At this time, there is less gaseous distention of the small bowel loops although residual dilatation persists. Paucity of gas within the colon. Electronically Signed: George Neves MD at 8:07 EDT Tel [phone], Service support , Operations: None Procedures: None Summary of Care Provided: The patient is a 27 year old F who returned to the hospital postop day 2 from laparoscopic cholecystectomy with nausea and vomiting. The CT scan showed distended small bowel as well as impacted stool in the right colon. The patient was admitted with a diagnosis of postoperative ileus. The patient's white count and vitals remained stable for the next few days. The patient was followed with serial abdominal exams as well as KUBs. The patient began to pass flatus and had several large bowel movements and was feeling much better and having less distention. She was tried on a clear liquid diet. She was advanced as tolerated and tolerated diet very well and continue to pass gas and have bowel movements very minimal abdominal tenderness. Patient was discharged home in stable condition. Discharge Diet: Light diet - advance as tolerated Discharge Activity: Return to Normal Activity May shower in (days): 1 - with the bandage in place. Call your doctor if your incision/area has: Continuous Slow Oozing, Sudden Increased Bleeding, Increased Pain/ Swelling, Increased Redness, Foul Smelling Discharge, Fever of 101 or Higher Call your doctor if you observe: Fever of 101 or Higher Suture Line Care: Avoid Pulling/Pushing, Avoid Pinching/Bending Home Medications: Medications to take at Discharge Omeprazole [Prilosec] 20 mg PO DAILY 01/11/14 calcium citrate 200 mg (950 mg) tablet 200 mg PO BID tab 11/11/17 levothyroxine 50 mcg tablet 75 mcg PO DAILY tab 11/11/17 multivitamin,ak-apfi-dzqrmppj tablet 1 tab PO BID 11/11/17 Oxycodone HCl/Acetaminophen [Percocet 5/325] 1 - 2 tablet PO Q4H PRN PRN 7 Days #30 tablet 11/21/17 Primary Care Physician: Isaias Bruno MD [Primary Care Provider] - Please Follow Up With: Gerson Mendez MD When: Please call to schedule 2 week follow up appointment. [phone] Medical Necessity - Tobacco Use Smoking Status: Former smoker Meaningful Use Info Meaningful Use Diagnoses (Choose all that apply): None applicable
[2017-11-27 13:30] VITALS: BP 100/63; PULSE 72; RESP 18; TEMP 36.7; O2SAT 96
--- NOTE | 2017-11-28 15:57 | CASEMGMT ---
JOSH COLVIN Discharge Follow-up Phone Call: KAIDEN: Kylah Strata: 3 Call Date: 11/28/17 Discharge Date: 11/27/17 Time of Call: 1555 Duration: 3 min Admitting Diagnosis: RUQ pain post cholecystectomy RN VINICIUS completed follow-up phone call after recent hospitalization. Patient states that she is doing well and had no questions regarding discharge instructions. Patient has number to schedule follow-up appt with Dr. Mendez in 2 weeks.
== END 2017-11-27 13:32 | disposition home or self-care (01) | DRG 394 ==
LOC: ED 22:12 → MS3 11-24 00:04
PROVIDERS: Admitting Provider Surgery; Emergency Provider Emergency Medicine; Family Provider Family Medicine; PCP Family Medicine; Visit Provider Surgery
DX: K91.89 Other postprocedural complications and disorders of digestive system (principal); K56.7 Ileus, unspecified; Z90.49 Acquired absence of other specified parts of digestive tract; E03.9 Hypothyroidism, unspecified; K21.9 Gastro-esophageal reflux disease without esophagitis
CPT/HCPCS: 36415; 74018; 74019; 74177; 80048; 80053; 80076; 81001; 83605; 83690; 83735; 84100; 85025; 99283; J7030; J7040; Q9967; A4216; J2405

== ENCOUNTER → 2018-09-19 | Outpatient (CLI) | payer OTHER, SELFPAY ==
[2018-09-19 11:48] VITALS: BMI 21.6
== END | disposition home or self-care (01) ==
LOC: LAB 12:24
PROVIDERS: Family Provider Family Medicine; PCP Family Medicine; Referring Provider Obstetrics & Gynecology; Visit Provider Obstetrics & Gynecology
DX: Z36.9 Encounter for antenatal screening, unspecified (principal)
CPT/HCPCS: 36415

== ENCOUNTER → 2018-11-03 | Outpatient (CLI) | payer OTHER, SELFPAY ==
[2018-11-03 09:57] VITALS: BMI 21.6
[2018-11-03 16:27] LABS: Chlamydia Trachomatis by PCR Negative (Negative); Neisserai gonorrhoeae by PCR Negative (Negative); Probe Check PASS; Sample Adequacy Control PASS; Specimen Processing Control PASS
== END | disposition home or self-care (01) ==
LOC: LABSPEC 12:46
PROVIDERS: Family Provider Family Medicine; PCP Family Medicine; Referring Provider Obstetrics & Gynecology; Visit Provider Obstetrics & Gynecology
DX: Z34.90 Encounter for supervision of normal pregnancy, unspecified, unspecified trimester (principal)
CPT/HCPCS: 87491; 87591

== ENCOUNTER → 2018-12-15 14:04 | Outpatient (CLI) | payer OTHER, SELFPAY ==
[2018-12-15 13:58] VITALS: BMI 28.0
[2018-12-15 14:26] LABS: Absolute Lymphocyte Count 2.23 X10^3/uL (0.83-4.51); Absolute Neutrophil Count 7.5 X10^3/uL (2.0-7.7); Basophil# 0.03 X10^3/uL; Basophil% 0.3 % (0-1); Eosinophil# 0.08 X10^3/uL; Eosinophils% 0.8 % (0-5); Hematocrit 34.3 % (37-47); Hemoglobin 10.9 g/dL (12.0-15.0); Lymphocyte # 2.23 X10^3/ul (4.0); Lymphocyte % 21.1 % (19-41); Mean Corp Hgb Conc 31.8 g/dL (32-36); Mean Corpuscular Hgb 22.4 pg (27.0-32.0); Mean Corpuscular Volume 70.6 fL (81-99); Monocyte# 0.69 X10^3/uL; Monocyte% 6.5 % (0-10); NRBC Flagged by Analyzer 0 % (0-5); Neutrophil % 70.8 % (47-70); Platelet Count 199 K/mm3 (150-450); RBC Distribution Width CV 14.1 % (11.6-14.6); RBC Distribution Width SD 35.1 fl (35.1-43.9); Red Blood Count 4.86 M/mm3 (4.2-5.4); White Blood Count 10.6 K/mm3 (4.4-11.0)
== END ==
PROVIDERS: Family Provider Family Medicine; PCP Family Medicine; Referring Provider Obstetrics & Gynecology; Visit Provider Obstetrics & Gynecology
DX: O09.90 Supervision of high risk pregnancy, unspecified, unspecified trimester (principal); Z3A.00 Weeks of gestation of pregnancy not specified
CPT/HCPCS: 36415; 85025

== ENCOUNTER 2019-01-08 13:55 | Outpatient (CLI) | payer OTHER, SELFPAY ==
[2018-12-30 08:48] VITALS: BMI 28.0
[2019-01-08 14:09] VITALS: BMI 28.9
--- NOTE | 2019-01-08 15:36 | OB.TRI.PN ---
Progress Notes Date of Service: 01/08/19 Progress Note: Patient presents for triage evaluation secondary to abdominal trauma status post fall patient felt decreased movement no bleeding or loss of fluid but has since felt movement. She felt dizzy and weak and has not been eating well FHT: 140 Moderate variability reactive no decelerations category I tracing [place]: No regular contractions Assessment and plan: Abdominal trauma check CBC fibrinogen and CMP reactive NST, reassuring maternal and status patient discharged to home to follow-up 5. See problem list details for additional plan information. - Problem List (1) Abdominal trauma Status: Acute Comment: s/p fall 01/08- reactive nst Multi Select Codes - Urinary/Genital Urinary/Genital CPT Codes: 59159-50 non-stress test Interp
[2019-01-08 15:48] LABS: Absolute Lymphocyte Count 2.02 X10^3/uL (0.83-4.51); Basophil# 0.03 X10^3/uL; Basophil% 0.3 % (0-1); Eosinophil# 0.07 X10^3/uL; Eosinophils% 0.7 % (0-5); Hematocrit 31.2 % (37-47); Hemoglobin 9.8 g/dL (12.0-15.0); Lymphocyte # 2.02 X10^3/ul (4.0); Lymphocyte % 20.5 % (19-41); Mean Corp Hgb Conc 31.4 g/dL (32-36); Mean Corpuscular Hgb 22.3 pg (27.0-32.0); Mean Corpuscular Volume 71.1 fL (81-99); Monocyte# 0.68 X10^3/uL; Monocyte% 6.9 % (0-10); NRBC Flagged by Analyzer 0 % (0-5); Neutrophil % 71.2 % (47-70); Platelet Count 168 K/mm3 (150-450); RBC Distribution Width CV 15.1 % (11.6-14.6); RBC Distribution Width SD 38.1 fl (35.1-43.9); Red Blood Count 4.39 M/mm3 (4.2-5.4); White Blood Count 9.8 K/mm3 (4.4-11.0)
[2019-01-08 15:51] LABS: POSITIVE COUNT NO; POSITIVE DIFFERENTIAL NO; POSITIVE MORPHOLOGY NO
[2019-01-08 16:17] LABS: ALB/GLOB Ratio 0.7 RATIO (0.9-2.4); AST(SGOT) 13 U/L (15-37); Alanine Aminotransfer ALT/SGPT 19 U/L (13-56); Albumin, Serum 2.7 g/dL (3.2-5.0); Alkaline Phosphatase 68 U/L (45-117); Anion Gap 7 (5-15); BUN 10 mg/dL (7-18); BUN/Creat Ratio 19.4 RATIO (10-20); Calcium,Total 8.4 mg/dL (8.5-10.1); Chloride 108 mmol/L (98-107); Creatinine, Serum 0.52 mg/dL (0.55-1.02); EST Glomerular Filtration Rate 149 mL/min (>60); Est Glom Filt Rate - Afr Amer 180 mL/min (>60); Estimated Creatinine Clearance 126.25 ml/min; Globulin 3.7 g/dL (2.2-4.2); Glucose 69 mg/dL (74-106); Potassium 3.8 mmol/L (3.5-5.1); Protein, Total 6.4 g/dL (6.4-8.2); Sodium Level 141 mmol/L (136-145)
[2019-01-08 16:26] LABS: Fibrinogen 506 mg/dl (203-444)
== END 2019-01-08 17:15 | disposition home or self-care (01) ==
LOC: WPOUT 14:03 → WP 14:04
PROVIDERS: Family Provider Family Medicine; PCP Family Medicine; Referring Provider Obstetrics & Gynecology; Visit Provider Obstetrics & Gynecology
DX: O9A.219 Injury, poisoning and certain other consequences of external causes complicating pregnancy, unspecified trimester (principal); S39.91XA Unspecified injury of abdomen, initial encounter; Z3A.00 Weeks of gestation of pregnancy not specified; W19.XXXA Unspecified fall, initial encounter; Y93.9 Activity, unspecified; Y92.9 Unspecified place or not applicable
CPT/HCPCS: 36415; 59025; 59050; 80053; 85025; 85384; 99218; G0378

== ENCOUNTER → 2019-01-15 16:52 | Outpatient (CLI) | payer OTHER, SELFPAY ==
[2019-01-15 15:55] VITALS: BMI 28.9
== END ==
PROVIDERS: Family Provider Family Medicine; PCP Family Medicine; Referring Provider Obstetrics & Gynecology; Visit Provider Obstetrics & Gynecology
DX: O09.90 Supervision of high risk pregnancy, unspecified, unspecified trimester (principal); Z3A.00 Weeks of gestation of pregnancy not specified

== ENCOUNTER → 2019-02-04 17:05 | Outpatient (CLI) | payer OTHER, SELFPAY ==
[2019-02-04 15:16] VITALS: BMI 29.4
== END ==
PROVIDERS: Family Provider Family Medicine; PCP Family Medicine; Referring Provider Obstetrics & Gynecology; Visit Provider Obstetrics & Gynecology
DX: Z34.90 Encounter for supervision of normal pregnancy, unspecified, unspecified trimester (principal)
CPT/HCPCS: 87081

== ENCOUNTER → 2019-02-11 07:43 | Outpatient (CLI) | payer OTHER, SELFPAY ==
[2019-02-04 15:16] VITALS: BMI 29.4
--- NOTE | 2019-02-11 07:45 | US_ITS ---
STUDY: SECOND AND THIRD TRIMESTER OBSTETRICAL ULTRASOUND REASON FOR EXAM: Female, 28 years old . growth. LMP: May 28, 2018. TECHNIQUE: Transabdominal TECHNICAL QUALITY: Adequate. PRIOR ULTRASOUND: None. FINDINGS: There is a single intrauterine fetus. The fetus is in a cephalic presentation. There is demonstrated cardiac activity with a heart rate of 145 bpm. There is a normal amniotic fluid volume. The largest amniotic fluid pocket measures 5.5 cm. The amniotic fluid index (TARAS) is 17.9 cm. The placenta is anterior in location and is not low lying. There are Grade 3 placental changes. The cervix was not measured due to the position of the head. The adnexal regions are not visualized. BIOMETRY: BPD: 8.8 cm: 35 weeks, 5 days HC: 32.9 cm: 37 weeks, 2 days AC: 33.5 cm: 37 weeks, 3 days FL: 6.9 cm: 35 weeks, 3 days CI: 78.6 FL/BPD: 78.2 FL/HC: FL/AC: 20.6 HC/AC: 1 age by current US: 36 weeks, 4 days. HODAN by current US: March 07, 2019. Estimated weight: 3023 grams, +/- 447 grams, 47 %. Age by LMP: 37 weeks, 0 days. HODAN by LMP: March 04, 2019. US/OB Limited With Biometrics IMPRESSION: Single live intrauterine gestation with a mean gestational age of 36 weeks and 4 days. Electronically Signed: George Neves, at 11:28 EST , Service support ,
== END ==
PROVIDERS: Family Provider Family Medicine; PCP Family Medicine; Referring Provider Obstetrics & Gynecology; Visit Provider Obstetrics & Gynecology
DX: Z34.90 Encounter for supervision of normal pregnancy, unspecified, unspecified trimester (principal); Z98.84 Bariatric surgery status
CPT/HCPCS: 76816

== ENCOUNTER → 2019-02-16 11:34 | Outpatient (CLI) | payer OTHER, SELFPAY ==
[2019-02-16 11:19] VITALS: BMI 29.4
[2019-02-16 11:50] LABS: Absolute Lymphocyte Count 2.88 X10^3/uL (0.83-4.51); Absolute Neutrophil Count 6.5 X10^3/uL (2.0-7.7); Basophil# 0.04 X10^3/uL; Basophil% 0.4 % (0-1); Eosinophil# 0.04 X10^3/uL; Eosinophils% 0.4 % (0-5); Hematocrit 36.4 % (37-47); Hemoglobin 11.4 g/dL (12.0-15.0); Lymphocyte # 2.88 X10^3/ul (4.0); Lymphocyte % 28.2 % (19-41); Mean Corp Hgb Conc 31.3 g/dL (32-36); Mean Corpuscular Hgb 21.6 pg (27.0-32.0); Mean Corpuscular Volume 68.8 fL (81-99); Monocyte% 6.8 % (0-10); NRBC Flagged by Analyzer 0 % (0-5); Neutrophil # 6.52 X10^3/uL (2.7-7.7); Neutrophil % 63.7 % (47-70); Platelet Count 211 K/mm3 (150-450); RBC Distribution Width CV 15.7 % (11.6-14.6); Red Blood Count 5.29 M/mm3 (4.2-5.4); White Blood Count 10.2 K/mm3 (4.4-11.0)
== END ==
PROVIDERS: Nurse Practitioner Women's Health; Family Provider Family Medicine; PCP Family Medicine; Referring Provider Obstetrics & Gynecology; Visit Provider Obstetrics & Gynecology
DX: D64.9 Anemia, unspecified (principal)
CPT/HCPCS: 36415; 85025

== ENCOUNTER 2019-02-25 15:50 | Inpatient (IN) | payer OTHER, SELFPAY ==
[2019-02-25 14:55] VITALS: BMI 29.4
[2019-02-25] MEDS: Lactated Ringers 1,000 ML 50 ML IV (16:05)
[2019-02-25] MEDS: Lactated Ringers 500 ML 999 ML IV ×3 (16:10→23:20)
[2019-02-25 16:37] VITALS: BMI 28.8
[2019-02-25 16:57] LABS: Absolute Lymphocyte Count 2.49 X10^3/uL (0.83-4.51); Absolute Neutrophil Count 8.1 X10^3/uL (2.0-7.7); Basophil# 0.03 X10^3/uL; Basophil% 0.3 % (0-1); Eosinophil# 0.04 X10^3/uL; Eosinophils% 0.4 % (0-5); Hematocrit 35.9 % (37-47); Hemoglobin 11.3 g/dL (12.0-15.0); Lymphocyte # 2.49 X10^3/ul (4.0); Mean Corp Hgb Conc 31.5 g/dL (32-36); Mean Corpuscular Hgb 21.5 pg (27.0-32.0); Mean Corpuscular Volume 68.4 fL (81-99); Monocyte# 0.65 X10^3/uL; Monocyte% 5.7 % (0-10); NRBC Flagged by Analyzer 0 % (0-5); Neutrophil # 8.08 X10^3/uL (2.7-7.7); Neutrophil % 71.2 % (47-70); Platelet Count 189 K/mm3 (150-450); RBC Distribution Width SD 37.8 fl (35.1-43.9); Red Blood Count 5.25 M/mm3 (4.2-5.4); White Blood Count 11.3 K/mm3 (4.4-11.0)
[2019-02-25] MEDS: fentaNYL-bupivacaine (epidural) 100 ML BAG EPIDURAL ×2 (18:09→22:09)
[2019-02-25] MEDS: Amnioinfusion- 0.9% NS 1,000 ML IV.SOLN. 500 ML INTRA-UTER (20:55)
[2019-02-25] MEDS: Terbutaline 1 MG/ML Vial 0.25 MG SC (22:10)
[2019-02-25] MEDS: Lactated Ringers 1,000 ML 200 ML IV (22:10)
[2019-02-26] MEDS: fentaNYL-bupivacaine (epidural) 100 ML BAG EPIDURAL (03:01)
[2019-02-26] MEDS: Lactated Ringers 1,000 ML 200 ML IV (03:33)
[2019-02-26] MEDS: Ondansetron 4 MG/2 ML Vial IV (05:07)
[2019-02-26] MEDS: Oxytocin 30 units/NS 500 ml 30 UNITS/500 ML IV.SOLN 334 UNITS IV (05:31)
--- NOTE | 2019-02-26 05:38 | HP.PCM_ITS ---
- Problem List (1) Borderline anemia Status: Acute (2) Supervision of high risk , antepartum Status: Acute Comment: PRR HODAN 03/04/2019 boy Buzz Hood Spouse Jase ASCENCIO RGI (3) Status: Acute Qualifiers: Comment: Negative genetic screening- male AFP negative. Anatomy US normal. (4) History of Jaki-en-Y gastric bypass Status: Acute Comment: extra vitamins, will do 1 week of blood sugar checks for glucose screening History Date of Admission: 11/24/17 Final HODAN: 03/04/19 Gestational age: 39 Weeks and 1 Days History of this : This is a 28 year-old, at 39 weeks gestational age presents IAL 4-5 cm. she has had an uncomplicated no vb lof decreased fm today. Medical History: Medical History (Last Reviewed 02/25/19 @ 14:53 by Luz Salmon) Anemia D64.9 Anxiety F41.9 GERD (gastroesophageal reflux disease) K21.9 Hypothyroidism E03.9 Sleep apnea G47.30 Surgical History: Surgical History (Last Reviewed 02/25/19 @ 14:53 by Luz Salmon) History of Jaki-en-Y gastric bypass Z98.84 History of esophagogastroduodenoscopy (EGD) Z98.890 Allergies Penicillins Allergy (Verified 02/25/19 16:33) Hives Home Medications: Home Medications calcium citrate 200 mg (950 mg) tablet 200 mg PO BID tab 11/11/17 levothyroxine 50 mcg tablet 75 mcg PO DAILY tab 11/11/17 multivitamin,dl-cfpf-akylyagy tablet 1 tab PO BID 11/11/17 blood sugar diagnostic strips See Rx Instructions .ROUTE .MEDSUPPLY #100 ea 12/02/18 blood-glucose meter See Rx Instructions .ROUTE .MEDSUPPLY #1 ea 12/02/18 Ferrous Sulfate [Iron] 325 mg PO DAILY 01/08/19 Vits [Prenatabs FA] 1 tab PO DAILY 01/08/19 Smoking Status: Current every day smoker Alcohol: None Number of Fetus(es): 1 NST - FHR Rate Baby A Baseline: 130 Variability:: Moderate Accelerations:: 15 x 15 Decelerations:: None NST Reactive:: Yes FHR Category:: Category I Uterine Activity:: q 2-3 History Past Pregnancies: Past Pregnancies Delivery Date Name GA/ Weeks Outcome Route Wt Sex Labor Length Anesthesia Delivery Location Provider FOB Labs: Mom's Labs & Results 02/25/19 02/25/19 16:10 16:10 WBC 11.3 H RBC 5.25 Hgb 11.3 L Hct 35.9 L MCV 68.4 L MCH 21.5 L MCHC 31.5 L RDW Std Deviation 37.8 RDW Coeff of Olimpia 16.0 H Plt Count 189 MPV TNP Immature Gran % (Auto) 0.400 Neut % (Auto) 71.2 H Lymph % (Auto) 22.0 Cochran % (Auto) 5.7 Eos % (Auto) 0.4 Baso % (Auto) 0.3 Absolute Neuts (auto) 8.1 H Absolute Lymphs (auto) 2.49 Nucleated RBC % 0 Blood Type A POSITIVE Antibody Screen NEGATIVE Course Did the patient receive Yes care? Labs Blood Type: A RH: POSITIVE RPR/VDRL/Syphilis Nonreactive Rubella status Immune HbSAg Negative Date Done: 08/12/18 Chlamydia Negative Gonorrhea Negative HIV/AIDS Non-Reactive Group B Strep: Negative Current Obstetrical History Gestational Diabetes No Incompetent Cervix No Infertility Yes IUGR No Macrosomia No Hypertension/Pre-eclampsia No Placenta Previa/Abruption No PTL/PROM No Uterine anomaly No Oligohydramnios No Polyhydramnios No Multiple gestation No Past Medical History Asthma No Diabetes No Hypertension No Heart disease No Mitral valve prolapse No Neurologic/Seizure disorder/ No Migraines Kidney disease No Liver disease No Varicosities No Clotting disorders/Hx of DVT No Thyroid Dysfunction Yes: hypothyroid Other medical diseases No Psychiatric disorders No Major trauma No Abnormal PAP smear No Sleep apnea Yes Mammogram in the last 2 years No Social History Marital Status: Alleged father Jase Hx Smoking Yes Smoking Status Current every day smoker Expected Infant Delivery Method: Spontaneous Vaginal Review of Systems Constitutional: Denies: Fever, Malaise Eyes: Denies: Blurred vision, Vision Change HEENT: Denies: Head Aches, Visual Changes Cardiovascular: Denies: Chest Pain, Palpitations Respiratory: Denies: Cough, Shortness of Breath, Wheezing Gastrointestinal: Denies: Abdominal Pain, Diarrhea, Nausea, Vomiting Genitourinary: Denies: Dysuria, Hematuria Musculoskeletal: Denies: Joint Pain, Muscle pain Skin: Denies: Lesions, Rash Neurological: Denies: Blurred vision, Focal weakness, Headaches Psychiatric: Denies: Anxiety, Depression Endocrine: Denies: Heat/ Cold Intolerance Hematologic/ Lymphatic: Denies: Easy Bruising, Easy Bleeding Physical Exam General: Alert, Cooperative, No apparent distress HEENT: Atraumatic, Normocephalic. Negative for: Thyromegaly, Lymphadenopathy Cardiovascular: Regular rate Lungs: Normal air movement Abdomen: Soft, Non Tender, Gravid Neurological: Deep Tendon Reflexes 2+/4 and Symmetrical, Neuro grossly intact. Negative for: Clonus TABLEAU ANALYST: Normal external genitalia. Negative for: Vulvar lesions Estimated gestational size: Appropriate for gestational size Presentation: Cephalic Assessment/Plan All Active Problems (Last Reviewed 02/25/19 @ 14:53 by Luz Salmon) Borderline anemia (Acute) Supervision of high risk , antepartum (Acute) (Acute) History of Jaki-en-Y gastric bypass (Acute) Abdominal trauma (Resolved) Biliary colic (Resolved) Biliary sludge (Resolved) Epigastric abdominal pain (Resolved) Postoperative ileus (Resolved) This is a 28 year-old, , at 39 weeks gestational age presents IAL. Patient presents IAL, plan expectant management for , pitocin/AROM PRN if needed. Pain management: Plans epidural. GBS neg. Management of any complications: None I have reviewed the [facility] and made any clinically relevant updates.
--- NOTE | 2019-02-26 05:40 | PCM.OPRPT ---
Problem List (1) Borderline anemia Status: Acute (2) Supervision of high risk , antepartum Status: Acute Comment: PRR HODAN 03/04/2019 boy Buzz Hood Spouse Jase ASCENCIO RGI (3) Status: Acute Qualifiers: Comment: Negative genetic screening- male AFP negative. Anatomy US normal. (4) History of Jaki-en-Y gastric bypass Status: Acute Comment: extra vitamins, will do 1 week of blood sugar checks for glucose screening Report of Operation Date of Procedure: 02/26/19 Pre-Operative Diagnosis: ial Post-Operative Diagnosis: same Surgery/Procedure Performed:: Vaginal Delivery Maternal Presentation: Active Labor 39 weeks IAL Amniotic Membrane Rupture Type: Artificial Amniotic Fluid Description: Clear Final HODAN: 03/04/19 Gestational age: 39 Weeks and 1 Days Date of Procedure: 02/26/19 Pre-Operative Diagnosis: ial Post-Operative Diagnosis: same Surgery/ Procedure Performed: Spontaneous Vaginal Delivery Type of Anesthesia: Epidural Description of Procedure: Patient began pushing and delivered the head in the CASSIUS presentation. The head was delivered atraumatically and a loose nuchal cord ?1 was identified and easily reduced over the 's head. The anterior and posterior shoulders delivered without complication followed by the rest of the infant and the was placed on the maternal abdomen. Delayed cord clamping was employed for approximately 60 seconds. Cord was clamped and cut and gentle traction was applied to the cord and the placenta delivered spontaneously immediately following it was noted to be intact with three-vessel cord. The perineum and vagina were inspected and noted to have no laceration. EBL was 100 cc. Patient and tolerated delivery well. Presentation: MAURA Placental Delivery Description: Spontaneous Placenta Disposition: [facility] Cord Vessel Description: 3 Vessels Cord Entanglement: Around neck x 1, loose Drain: Mustafa to straight drain Estimated Blood Loss: 100 Infant A gender: Male Episiotomy Description: None Laceration: None Medications given after delivery: IV Pitocin Complications: None Multi Select Codes - Urinary/Genital Urinary/Genital CPT Codes: 95855 Vaginal Delivery [facility]
[2019-02-26 12:26] VITALS: BP 90/55; PULSE 71; RESP 16; TEMP 36.9
[2019-02-26 16:14] VITALS: BP 103/61; PULSE 71; RESP 18; TEMP 36.6
[2019-02-26 19:39] VITALS: BP 103/58; PULSE 76; RESP 16; TEMP 36.6; O2SAT 97
[2019-02-26] MEDS: Acetaminophen 500 MG Tablet 1000 MG PO (19:58)
[2019-02-27 00:09] VITALS: BP 102/62; PULSE 72; RESP 18; TEMP 36.5
[2019-02-27 04:31] VITALS: BP 87/54; PULSE 64; RESP 16; TEMP 36.3
[2019-02-27 09:30] VITALS: BP 103/68; PULSE 73; RESP 16; TEMP 36.8; O2SAT 97
[2019-02-27] MEDS: Acetaminophen 500 MG Tablet 1000 MG PO (09:30)
[2019-02-27 13:30] VITALS: BP 98/60; PULSE 70; TEMP 36.6; O2SAT 98
--- NOTE | 2019-02-27 13:35 | DCINST_ITS ---
Discharge Diet: No Restrictions Discharge Activity: Return to Normal Activity, May not drive while taking narcotic pain medications., May Shower May resume sexual activity in: 4-6 weeks Call your doctor if your incision/area has: Continuous Slow Oozing, Sudden Increased Bleeding, Increased Pain/ Swelling, Increased Redness, Foul Smelling Discharge Additional Instructions: If you experience any of the following, contact your healthcare provider. * Bleeding that soaks a pad every hour for 2 hours * Fever 100.4 or higher * Unrelieved incision or abdominal pain * Swelling, redness, discharge or bleeding from your incision or episiotomy site * Your incision begins to separate * Problems urinating (including inability to urinate or burning while urinating). * Visual changes * Severe headache * Flu-like symptoms * Pain or redness in one of both of your breasts * Pain, warmth, tenderness or swelling in your legs, especially the calf area * Frequent nausea and vomiting * Symptoms of depression or anxiety If you experience any of the following, call 911 or go to the nearest Emergency Room. * Chest pain * Problems breathing * Seizure activity * Partial or complete paralysis of a body part, slurred speech, weakness or drooping of the face, or a sudden inability to walk or hold your balance Allergies/Adverse Reactions: Allergies Penicillins Allergy (Verified 02/25/19 16:33) Hives Medications to take at Discharge calcium citrate 200 mg (950 mg) tablet 200 mg PO BID tab 11/11/17 levothyroxine 50 mcg tablet 75 mcg PO DAILY tab 11/11/17 multivitamin,wv-jmmi-mbetkaen tablet 1 tab PO BID 11/11/17 blood sugar diagnostic strips See Rx Instructions .ROUTE .MEDSUPPLY #100 ea 12/02/18 blood-glucose meter See Rx Instructions .ROUTE .MEDSUPPLY #1 ea 12/02/18 Ferrous Sulfate [Iron] 325 mg PO DAILY 01/08/19 Vits [Prenatabs FA] 1 tab PO DAILY 01/08/19 Please Follow Up With: Ene Rodgers MD - [phone] When: Call to make an appointment with your doctor in 6 weeks. If you had elevated Blood pressure or 4th degree laceration you will need to be seen in 2 weeks. Primary Care Physician: Isaias Bruno MD [Primary Care Provider] - Test Results: Test results from this visit will be discussed in further detail at your follow- up appointment, if applicable.
--- NOTE | 2019-02-27 13:36 | PCM.PN.OB ---
Subjective: doing well no complaints pain controlled no CP SOB N V ambulating well tolerating po lochia moderate, going well - Physical Exam Vitals/I&O's: Vital Signs Temp Pulse Resp BP Pulse Ox 98.2 F 73 16 103/68 97 02/27/19 09:30 02/27/19 09:30 02/27/19 09:30 02/27/19 09:30 02/27/19 09:30 Oxygen Delivery Method Room Air Weight: 163 lb Body Mass Index (BMI) 28.8 Intake and Output for Last 24 Hours 02/25/19 02/26/19 02/27/19 23:59 23:59 23:59 Intake Total 2046.75 / 2046.75 1873.33 / 1873.33 Output Total 2350 / 2350 Balance 2046.75 / 2046.75 -476.67 / -476.67 General: Alert, Oriented x3 Current Medications Acetaminophen (Tylenol) 1,000 mg PO Q8H PRN PRN PRN Reason: Pain Score 1-3/10 Last Admin: 02/27/19 09:30 Dose: 1,000 mg Documented by: Bisacodyl (Dulcolax) 10 mg RECTAL UD PRN PRN Reason: If no BM Dibucaine (Dibucaine) 1 applic TOPICAL TID PRN PRN; Protocol PRN Reason: Discomfort Hydrocortisone (Hytone) 1 applic TOPICAL TID PRN PRN; Protocol PRN Reason: Discomfort Levothyroxine Sodium (Synthroid) 75 mcg PO DAILY@0600 QAMAR Last Admin: 02/27/19 06:41 Dose: Not Given Documented by: Methylergonovine Maleate (Methergine) 0.2 mg IM X1 PRN PRN Reason: Excess bleeding/uterine atony Naproxen (Naprosyn) 500 mg PO Q8H PRN PRN PRN Reason: Pain Score 1-3/10 Ondansetron HCl (Zofran) 4 mg IV Q4H PRN PRN PRN Reason: Nausea Oxycodone HCl (Oxyir) 5 - 10 mg PO Q4H PRN PRN PRN Reason: Pain Score 4-10/10 Senna/Docusate Sodium (Senokot-S, Thelma-Colace) 1 - 2 tablet PO DAILY PRN PRN PRN Reason: Constipation Simethicone (Mylicon) 80 mg PO PCHS PRN PRN Reason: Indigestion/Stomach pain Sodium Chloride () 5 - 15 ml IV UD PRN PRN Reason: SALINE FLUSH Medical Necessity - Tobacco Use Smoking Status: Current every day smoker Assessment/Plan All Active Problems (Last Reviewed 02/25/19 @ 14:53 by Luz Salmon) Borderline anemia (Acute) Supervision of high risk , antepartum (Acute) (Acute) History of Jaki-en-Y gastric bypass (Acute) Abdominal trauma (Resolved) Biliary colic (Resolved) Biliary sludge (Resolved) Epigastric abdominal pain (Resolved) Postoperative ileus (Resolved) s/p PPD # 1 1. routine post delivery care 2. breast feeding- support given 3. rh positive 4. rubella immune
== END 2019-02-27 15:10 | disposition home or self-care (01) | DRG 807 ==
PROVIDERS: Admitting Provider Obstetrics & Gynecology; Family Provider Family Medicine; PCP Family Medicine; Referring Provider Obstetrics & Gynecology; Visit Provider Obstetrics & Gynecology
DX: O99.844 Bariatric surgery status complicating childbirth (principal); Z37.0 Single live birth; D64.9 Anemia, unspecified; O99.02 Anemia complicating childbirth; O69.81X0 Labor and delivery complicated by cord around neck, without compression, not applicable or unspecified; K21.9 Gastro-esophageal reflux disease without esophagitis; E03.9 Hypothyroidism, unspecified; O99.284 Endocrine, nutritional and metabolic diseases complicating childbirth; G47.30 Sleep apnea, unspecified; F17.200 Nicotine dependence, unspecified, uncomplicated; O99.334 Smoking (tobacco) complicating childbirth; Z3A.39 39 weeks gestation of pregnancy
CPT/HCPCS: 59025; 59050; 85025; 86850; 86900; 86901; 99218; J7030; J7120; G0378; J2405

== ENCOUNTER → 2019-04-02 15:25 | Outpatient (CLI) | payer OTHER, SELFPAY ==
[2019-04-02 12:47] VITALS: BMI 28.8
[2019-04-10 12:45] LABS: HPV APTIMA, High Risk Negative (Negative)
[2019-04-10 12:48] LABS: HPV Reflexed? YES, CHARGE PATIENT
== END ==
PROVIDERS: Family Provider Family Medicine; PCP Family Medicine; Visit Provider Obstetrics & Gynecology
DX: Z12.4 Encounter for screening for malignant neoplasm of cervix (principal)
CPT/HCPCS: 87624; 88175; G0145

== ENCOUNTER → 2019-05-18 15:40 | Outpatient (CLI) | payer BC, SELFPAY ==
[2019-04-02 12:47] VITALS: BMI 28.8
[2019-05-18 18:11] LABS: Anion Gap 4 (5-15); BUN 16 mg/dL (7-18); Calcium,Total 9.5 mg/dL (8.5-10.1); Chloride 108 mmol/L (98-107); Creatinine, Serum 0.76 mg/dL (0.55-1.02); EST Glomerular Filtration Rate 95 mL/min (>60); Est Glom Filt Rate - Afr Amer 115 mL/min (>60); Glucose 83 mg/dL (74-106); Sodium Level 140 mmol/L (136-145); T4 Free Direct 1.04 ng/dL (0.76-1.46); Thyroid Stim Hormone (TSH) 0.99 uIU/mL (0.358-3.74)
== END ==
PROVIDERS: PCP Family Medicine; Visit Provider Family Medicine
DX: E03.9 Hypothyroidism, unspecified (principal)
CPT/HCPCS: 36415; 80048; 84439; 84443

== ENCOUNTER → 2019-11-10 10:50 | Outpatient (CLI) | payer BC, SELFPAY ==
[2019-04-02 12:47] VITALS: BMI 28.8
[2019-11-10 12:38] LABS: Basophil# 0.04 X10^3/uL; Basophil% 0.9 % (0-1); Eosinophil# 0.18 X10^3/uL; Eosinophils% 3.9 % (0-5); Hematocrit 37.3 % (37-47); Hemoglobin 11.5 g/dL (12.0-15.0); Lymphocyte % 42.8 % (19-41); Mean Corp Hgb Conc 30.8 g/dL (32-36); Mean Corpuscular Hgb 20.9 pg (27.0-32.0); Mean Corpuscular Volume 67.9 fL (81-99); Monocyte# 0.49 X10^3/uL; Monocyte% 10.5 % (0-10); NRBC Flagged by Analyzer 0 % (0-5); Neutrophil # 1.95 X10^3/uL (2.7-7.7); Neutrophil % 41.7 % (47-70); POSITIVE MORPHOLOGY YES; Platelet Count 283 K/mm3 (150-450); RBC Distribution Width CV 18.7 % (11.6-14.6); RBC Distribution Width SD 40.3 fl (35.1-43.9); Red Blood Count 5.49 M/mm3 (4.2-5.4); White Blood Count 4.7 K/mm3 (4.4-11.0)
[2019-11-10 12:39] LABS: Differential Indicated SCAN CRITERIA MET
[2019-11-10 12:43] LABS: PTHIN 43.7 pg/mL (18.4-80.1)
[2019-11-10 12:48] LABS: Vitamin B12 1305 pg/mL (211-911); Vitamin D,25 Hydroxy 62.6 ng/mL
[2019-11-10 13:26] LABS: ALB/GLOB Ratio 1.1 RATIO (0.9-2.4); AST(SGOT) 21 U/L (15-37); Alanine Aminotransfer ALT/SGPT 39 U/L (13-56); Albumin, Serum 3.9 g/dL (3.2-5.0); Alkaline Phosphatase 52 U/L (45-117); Anion Gap 4 (5-15); BUN 16 mg/dL (7-18); BUN/Creat Ratio 20.6 RATIO (10-20); Calcium,Total 8.8 mg/dL (8.5-10.1); Chloride 109 mmol/L (98-107); Cholesterol 148 mg/dL (200); Creatinine, Serum 0.78 mg/dL (0.55-1.02); EST Glomerular Filtration Rate 92 mL/min (>60); Est Glom Filt Rate - Afr Amer 111 mL/min (>60); Ferritin 5 ng/mL (8-252); Globulin 3.7 g/dL (2.2-4.2); Glucose 82 mg/dL (74-106); High Density Lipoprotein 68 mg/dL; Iron 50 ug/dL (50-170); Iron Binding Capacity,Total 349 ug/dL (250-450); Magnesium 2.3 mg/dL (1.6-2.6); PERCENT IRON SATURATION 14.3 % (15.0-55.0); Potassium 4.2 mmol/L (3.5-5.1); Protein, Total 7.6 g/dL (6.4-8.2); Sodium Level 140 mmol/L (136-145); Thyroid Stim Hormone (TSH) 1.21 uIU/mL (0.358-3.74); Triglycerides 164 mg/dL; Very Low Density Lipoprotein 33 mg/dL (5-40)
[2019-11-13 12:07] LABS: Vitamin B1, Thiamine 176.4 nmol/L (66.5-200.0)
[2019-11-13 13:37] LABS: Zinc, Plasma or Serum 76 ug/dL (56-134)
== END ==
PROVIDERS: PCP Family Medicine
DX: D56.3 Thalassemia minor (principal); E03.9 Hypothyroidism, unspecified; Z98.84 Bariatric surgery status; E61.1 Iron deficiency
CPT/HCPCS: 36415; 80053; 80061; 82306; 82607; 82728; 82746; 83540; 83550; 83735; 83970; 84425; 84443; 84630; 85025

== ENCOUNTER → 2020-04-12 | Outpatient (CLI) | payer BC, SELFPAY ==
[2020-04-12 12:55] VITALS: BMI 23.0
[2020-04-18 18:47] LABS: HPV APTIMA, High Risk Negative (Negative)
== END | disposition home or self-care (01) ==
LOC: LABSPEC 16:14
PROVIDERS: PCP Family Medicine; Visit Provider Nurse Practitioner Women's Health
DX: Z12.4 Encounter for screening for malignant neoplasm of cervix (principal)
CPT/HCPCS: 87624; 88175; G0145

== ENCOUNTER → 2020-05-24 09:04 | Outpatient (CLI) | payer BC, SELFPAY ==
[2020-04-12 12:55] VITALS: BMI 23.0
[2020-05-24 12:24] LABS: Absolute Lymphocyte Count 2.07 X10^3/uL (0.83-4.51); Absolute Neutrophil Count 2.6 X10^3/uL (2.0-7.7); Basophil# 0.07 X10^3/uL; Basophil% 1.2 % (0-1); Eosinophil# 0.43 X10^3/uL; Eosinophils% 7.6 % (0-5); Hematocrit 36.2 % (37-47); Hemoglobin 11.1 g/dL (12.0-15.0); Lymphocyte # 2.07 X10^3/ul (4.0); Lymphocyte % 36.6 % (19-41); Mean Corp Hgb Conc 30.7 g/dL (32-36); Mean Corpuscular Hgb 19.7 pg (27.0-32.0); Mean Corpuscular Volume 64.3 fL (81-99); Monocyte# 0.46 X10^3/uL; Monocyte% 8.1 % (0-10); NRBC Flagged by Analyzer 0 % (0-5); Neutrophil # 2.62 X10^3/uL (2.7-7.7); Neutrophil % 46.5 % (47-70); POSITIVE MORPHOLOGY YES; Platelet Count 203 K/mm3 (150-450); RBC Distribution Width CV 20.6 % (11.6-14.6); RBC Distribution Width SD 43.3 fl (35.1-43.9); Red Blood Count 5.63 M/mm3 (4.2-5.4); White Blood Count 5.7 K/mm3 (4.4-11.0)
[2020-05-24 12:25] LABS: Differential Indicated SCAN CRITERIA MET
[2020-05-24 12:56] LABS: Cholesterol 152 mg/dL (200); High Density Lipoprotein 73 mg/dL; Iron 44 ug/dL (50-170); Triglycerides 65 mg/dL; Very Low Density Lipoprotein 13 mg/dL (5-40)
[2020-05-24 12:58] LABS: Anisocytosis 1+
== END ==
PROVIDERS: PCP Family Medicine; Visit Provider Family Medicine
DX: E03.9 Hypothyroidism, unspecified (principal); D50.9 Iron deficiency anemia, unspecified
CPT/HCPCS: 36415; 80061; 83540; 85025

== ENCOUNTER → 2020-05-30 10:03 | Outpatient (CLI) | payer BC, SELFPAY ==
[2020-04-12 12:55] VITALS: BMI 23.0
--- NOTE | 2020-05-30 10:05 | US_ITS ---
STUDY: THYROID ULTRASOUND REASON FOR EXAM: Female, 30 years old. Nodules -prior 08/13/14 TECHNIQUE: Ultrasound evaluation of the thyroid was performed with real-time and static reilly-scale imaging. COMPARISON: Comparison is made with prior study dated 08/13/2014. FINDINGS: RIGHT LOBE: The right lobe of the thyroid gland measures 4 cm x 0.9 cm x 1.2 cm. There is a homogeneous echotexture. There are no demonstrated solid, cystic or complex lesions. LEFT LOBE: The left lobe of the thyroid gland measures 3.9 cm x 1.3 cm x 1 cm. There is a homogeneous echotexture. There are no demonstrated solid, cystic or complex lesions. ISTHMUS: The isthmus measures 4 mm. There is a 1 cm x 0.7 cm x 0.4 cm benign-appearing right cervical lymph node. US/Thyroid IMPRESSION: Normal ultrasound examination of the thyroid. 1 cm x 0.7 cm x 0.4 cm benign-appearing right cervical lymph node. Electronically Signed: George Neves MD at 12:50 EST , Service support ,
== END ==
PROVIDERS: PCP Family Medicine; Referring Provider Family Medicine; Visit Provider Family Medicine
DX: E04.1 Nontoxic single thyroid nodule (principal)
CPT/HCPCS: 76536

== ENCOUNTER → 2020-08-23 13:59 | Outpatient (CLI) | payer BC, SELFPAY ==
[2020-04-12 12:55] VITALS: BMI 23.0
== END ==
PROVIDERS: PCP Family Medicine; Referring Provider Nurse Practitioner Women's Health; Visit Provider Nurse Practitioner Women's Health
DX: O20.9 Hemorrhage in early pregnancy, unspecified (principal); Z3A.00 Weeks of gestation of pregnancy not specified
CPT/HCPCS: 36415; 84702

== ENCOUNTER → 2020-08-29 | Outpatient (CLI) | payer BC, SELFPAY ==
[2020-08-29 10:29] VITALS: BMI 23.9
[2020-08-29 16:03] LABS: Amphetamine Urine VISTA NEGATIVE (<1000 ng/mL); Barbiturate Urine VISTA NEGATIVE (< 200 ng/mL); Benzodiazepine Urine VISTA NEGATIVE (< 200 ng/mL); Cocaine Urine VISTA NEGATIVE (< 300 ng/mL); Ecstacy Urine VISTA NEGATIVE (< 500 ng/mL); Methadone Urine VISTA NEGATIVE (< 300 ng/mL); PCP Urine VISTA NEGATIVE (< 25 ng/mL); THC Urine VISTA NEGATIVE (< 50 ng/mL); Vista UDS pH Range 6
[2020-09-02 03:07] LABS: Chlamydia By Nucleic Acid AMP Negative (Negative)
[2020-09-02 08:22] LABS: Gonococcus By Nucleic Acid AMP Negative (Negative)
== END | disposition home or self-care (01) ==
LOC: LABSPEC 15:00
PROVIDERS: PCP Family Medicine; Referring Provider Obstetrics & Gynecology; Visit Provider Obstetrics & Gynecology
DX: O09.90 Supervision of high risk pregnancy, unspecified, unspecified trimester (principal); Z3A.00 Weeks of gestation of pregnancy not specified
CPT/HCPCS: 80307; 87086; 87088; 87491; 87591

== ENCOUNTER → 2020-09-28 08:24 | Outpatient (CLI) | payer BC, SELFPAY ==
[2020-09-27 15:23] VITALS: BMI 23.9
[2020-09-28 08:51] LABS: Absolute Neutrophil Count 3.8 X10^3/uL (2.0-7.7); Basophil# 0.02 X10^3/uL; Basophil% 0.3 % (0-1); Eosinophil# 0.12 X10^3/uL; Eosinophils% 1.9 % (0-5); Hemoglobin 11.5 g/dL (12.0-15.0); Lymphocyte % 29.2 % (19-41); Mean Corp Hgb Conc 31.9 g/dL (32-36); Mean Corpuscular Hgb 22.4 pg (27.0-32.0); Monocyte# 0.44 X10^3/uL; Monocyte% 7.1 % (0-10); NRBC Flagged by Analyzer 0 % (0-5); Neutrophil # 3.76 X10^3/uL (2.7-7.7); Neutrophil % 61.2 % (47-70); Platelet Count 178 K/mm3 (150-450); RBC Distribution Width SD 40.5 fl (35.1-43.9); Red Blood Count 5.14 M/mm3 (4.2-5.4); White Blood Count 6.2 K/mm3 (4.4-11.0)
[2020-09-28 09:40] LABS: NATERA MAILED SPECIMEN
[2020-09-28 09:58] LABS: Ferritin 5 ng/mL (8-252); Thyroid Stim Hormone (TSH) 1.66 uIU/mL (0.358-3.74)
[2020-09-28 10:09] LABS: HIV - WCH Non-Reactive (Nonreactive); Hepatitis B Surface Antigen Non-Reactive (Nonreactive); Hepatitis C Antibody Non-Reactive (Nonreactive); Rubella IgG Reactive (Nonreactive); Syphilis Antibodies Non-reactive; Vitamin B12 789 pg/mL (211-911)
== END ==
PROVIDERS: Obstetrics & Gynecology; PCP Family Medicine; Referring Provider Obstetrics & Gynecology; Visit Provider Obstetrics & Gynecology
DX: O09.90 Supervision of high risk pregnancy, unspecified, unspecified trimester (principal); E03.9 Hypothyroidism, unspecified; O99.280 Endocrine, nutritional and metabolic diseases complicating pregnancy, unspecified trimester; Z98.84 Bariatric surgery status; Z3A.00 Weeks of gestation of pregnancy not specified
CPT/HCPCS: 36415; 82607; 82728; 82746; 84443; 85025; 86703; 86762; 86780; 86803; 86850; 86900; 86901; 87340

== ENCOUNTER → 2021-01-12 07:48 | Outpatient (CLI) | payer BC, SELFPAY ==
--- NOTE | 2021-01-12 07:48 | US_ITS ---
STUDY: SECOND AND THIRD TRIMESTER OBSTETRICAL ULTRASOUND - LIMITED REASON FOR EXAM: Female, 30 years old routine survey, history of low-lying placenta LMP: 07/01/2020 PRIOR ULTRASOUND: Prior comparison studies are not available for review at this time. TECHNIQUE: Transabdominal and Transvaginal TECHNICAL QUALITY: Adequate. FINDINGS: There is a single intrauterine fetus. The fetus is in a breech presentation. There is demonstrated cardiac activity with a heart rate of 147 bpm. There is a subjectively normal amniotic fluid volume. The largest amniotic fluid pocket measures 4.8 x 7.8 cm. The placenta is posterior in location and is not low lying. Placenta tip is 2.8 cm from the cervical os. There are Grade 1 placental changes. The cervix measures 4.0 cm in length. Age by LMP: 27 weeks, 6 days. HODAN by LMP: 04/07/2021. US/OB Limited (No Biometrics) IMPRESSION: Single live intrauterine at 27 weeks, 6 days by LMP with heart rate of 147 bpm. Presentation is breech. Placental location is posterior, not low-lying. Placental tip is 2.8 cm from the cervical os. Electronically Signed: Donald Rosales MD at 10:37 EDT , Service support ,
== END ==
PROVIDERS: PCP Family Medicine; Referring Provider Obstetrics & Gynecology; Visit Provider Obstetrics & Gynecology
DX: O44.42 Low lying placenta NOS or without hemorrhage, second trimester (principal); Z3A.00 Weeks of gestation of pregnancy not specified
CPT/HCPCS: 76815; 76817

== ENCOUNTER → 2021-01-19 15:54 | Outpatient (CLI) | payer BC, SELFPAY ==
[2021-01-19 16:40] LABS: Thyroid Stim Hormone (TSH) 1.93 uIU/mL (0.358-3.74)
== END ==
PROVIDERS: PCP Family Medicine; Referring Provider Nurse Practitioner Women's Health; Visit Provider Nurse Practitioner Women's Health
DX: Z13.29 Encounter for screening for other suspected endocrine disorder (principal)
CPT/HCPCS: 36415; 84443

== ENCOUNTER 2021-03-11 18:15 | Outpatient (CLI) | payer BC, SELFPAY ==
[2021-03-11 18:31] VITALS: BP 120/72; PULSE 95; TEMP 36.4
[2021-03-11 18:33] VITALS: BMI 28.9
[2021-03-11 18:52] LABS: Color, Urine Yellow (Yellow); Glucose, Dipstick Normal (Normal); Ketone-Dipstick 50 mg/dl (Negative); Leukocyte Esterase-Dipstick 25 /ul (Negative); Nitrite-Dipstick Negative (Negative); Occult Blood-Urine Negative /ul (Negative); Protein-Dipstick 15 mg/dl (Negative); Urine Bilirubin Dipstick Negative (Negative); Urine Clarity Clear (Clear); Urine Urobilinogen 1 mg/dl (Normal); Urine pH 6.5 (5.0 - 8.0)
[2021-03-11] MEDS: cycloBENZAPRine HCl 10 MG Tablet PO (20:39)
--- NOTE | 2021-03-11 21:24 | OB.TRI.HP_ITS ---
HPI - General HPI Narrative OH RICE, is a 30 F who presents Maternal Data Information HODAN Calculator Estimated Delivery Date Method Current WG Current Estimate 04/07/21 LMP (Uncertain) 36w 1d Other Estimates 04/06/21 Ultrasound #1 36w 2d PFSH PFSH Medical History Anemia Anxiety Bleeding in early GERD (gastroesophageal reflux disease) Hypothyroidism Low-lying placenta in second trimester Sleep apnea Home Medications calcium citrate 200 mg (950 mg) tablet 200 mg PO BID tab 11/11/17 [History Last Taken 11/23/17 21:00 200 mg] levothyroxine 50 mcg tablet 75 mcg PO DAILY tab 11/11/17 [History Last Taken 11/23/17 08:00 75 mcg] ferrous sulfate 325 mg PO DAILY 01/08/19 [History Last Taken 02/25/19] gznwlgid-sxzmjuiz-rgfy 45 mg-folic acid 800 mcg-vit K 120 mcg capsule 1 cap PO .COMPLEX #90 cap 08/02/20 [Rx Last Taken Unknown] buspirone 7.5 mg tablet 7.5 mg PO TID 30 Days #60 tab 03/03/21 [Rx Last Taken Unknown] Allergy/AdvReac Type Severity Reaction Status Date / Time Penicillins Allergy Hives Verified 03/01/21 08:14 Family History Father Diabetes Grandmother Breast cancer Colon cancer Grandfather Hypertension Heart disease Surgical History History of esophagogastroduodenoscopy (EGD) History of Jaki-en-Y gastric bypass S/P cholecystectomy Social History adopted: No household members: spouse, children and other details: mil and fazal number of children: 1 current occupational status: employed current occupation: [employer] Smoking Status: Former smoker alcohol intake: never substance use type: does not use caffeine: Yes what type of physical activity do you participate in: walking seatbelt use: always do you feel safe at home: Yes additional social history: Jase- History 2 Elective abortions Hx Para 1 Spontaneous abortions Hx # Term Pregnancies Ectopic pregnancies Hx # Pregnancies Multiple births # of living children 1 Past Pregnancies Del. Date Name GA/Weeks Outcome Route Bth Weight [facility] Buzz 39 live - full term 6lbs 9oz Male epi dural WC NANCY Visit Details Expected Delivery Route/Plan Labor Preferences- CB/BF classes: no labor support person: Jase labor intervention preferences: [] pain management options preferred: epidural! cut cord/dad catch: yes : yes PP control planned: discussed discussed possible routes of delivery and associated risks: [] special requests: [] Plans COVID: counseled regarding risk of covid in vs vaccination and declined vaccination flu vaccine: given tdap vaccine: given rhogam: NA LARC form signed: yes Problem list reviewed and updated with the most current plan of care details and appropriate orders placed. Relevant counseling for the gestational age provided. Continue routine care and follow up unless otherwise noted in visit notes/problem list details OB Flowsheet Initial Weight: 135 lb Date -?-?-?-?-?-?-?-?-?-?-?-?- EGA Weight BP Urine Prot -?-?-?-?-?-?-?-?-?-?-?-?- Glucose FHR FuHt Pres Dilation -?-?-?-?-?-?-?-?-?-?-?-?- Effaced St Visit Note 08/29/20 -?-?-?-?-?-?-?-?-?-?-?-?- 8w 3d 135 lb (+0 oz) 104/78 -?-?-?-?-?-?-?-?-?-?-?-?- 171 -?-?-?-?-?-?-?-?-?-?-?-?- GP - CRL 18mm co nsistent with LMP. 09/27/20 -?-?-?-?-?-?-?-?-?-?-?-?- 12w 4d 139 lb (+4 lb) 110/80 Negative -?-?-?-?-?-?-?-?-?-?-?-?- Negative 150 -?-?-?-?-?-?-?-?-?-?-?-?- SM- no vb crmapi ng, fatigue 10/24/20 -?-?-?-?-?-?-?-?-?-?-?-?- 16w 3d 144 lb (+9 lb) 90/60 Negative -?-?-?-?-?-?-?-?-?-?-?-?- Negative 135 -?-?-?-?-?-?-?-?-?-?-?-?- - reveiwed lab s no vb cramping 11/22/20 -?-?-?-?-?-?-?-?-?-?-?-?- 20w 4d 149 lb 8 oz (+14 lb 8 oz) 100/58 Trace -?-?-?-?-?-?-?-?-?-?-?-?- Negative 148 -?-?-?-?-?-?-?-?-?-?-?-?- -No VB, LOF. G ood Fm. Has anatomy US in [place] 11/2512/21/20 -?-?-?-?-?-?-?-?-?-?-?-?- 24w 5d 155 lb 8 oz (+20 lb 8 oz) 104/78 Negative -?-?-?-?-?-?-?-?-?-?-?-?- Negative 150 24 -?-?-?-?-?-?-?-?-?-?-?-?- GP - no ctx, LOF , VB, DFM. FU scan ordered for low-lying placenta. Plan home BGT monitoring for GDM screening given hx gastric bypass 01/19/21 -?-?-?-?-?-?-?-?-?-?-?-?- 28w 6d 161 lb (+26 lb) 98/72 Negative -?-?-?-?-?-?-?-?-?-?-?-?- Negative 148 28 -?-?-?-?-?-?-?-?-?-?-?-?- -No VB, LOF. G ood FM. 28 wk labs, tdap, larc. Considering flu vaccine. 02/03/21 -?-?-?-?-?-?-?-?-?-?-?-?- 31w 0d 104/80 Negative -?-?-?-?-?-?-?-?-?-?-?-?- Negative 145 31 Cephalic -?-?-?-?-?--?-?-?-?-?-?-?- SM- no vb lof go od fm no regular ctx SM- no vb lof good fm no reg ular ctx, buspar SM- no vb lof good fm no reg ular ctx, buspar ordered for anxiety 02/15/21 -?-?-?-?-?-?-?-?-?-?-?-?- 32w 5d 164 lb 6 oz (+29 lb 6 oz) 106/62 Negative -?-?-?-?-?-?-?-?-?-?-?-?- Negative 134 34 Cephalic -?-?-?-?-?-?-?-?-?-?-?-?- JV- no lof, vagi nal bleeding, or dec fm. pt declines covid vaccine. risks discussed. 03/01/21 -?-?-?-?-?-?-?-?-?-?-?-?- 34w 5d 167 lb 4 oz (+32 lb 4 oz) 108/82 Negative -?-?-?-?-?-?-?-?-?-?-?-?- Negative 127 35 Cephalic -?-?-?-?-?-?-?-?-?-?-?-?- JV- pt states th at she has started having severe back spasms. worse at work. Trying tylenol, heat, chiropractor, rest, back braces. thinking of stopping work at 37 weeks. pt ended up signing a [employer] exemption form to get out of mandate for covid vaccine at work and is comfortable with this plan. 03/11/21 -?-?-?-?-?-?-?-?-?-?-?-?- 36w 1d 163 lb 5.8 oz (+28 lb 5.8 oz) 120/72 15 mg/dl (Negative) H -?-?-?-?-?-?-?-?-?-?-?-?- -?-?-?-?-?-?-?-?-?-?-?-?- ROS Constitutional Constitutional: Reports systems reviewed and no addt'l complaints, except as documented Gastrointestinal Gastrointestinal: Denies bloating, constipation, cramping, diarrhea, nausea or vomiting Genitourinary Genitourinary: Reports other Details: Denies vaginal odor, vaginal bleeding, or vaginal discharge ; Denies difficulty urinating or flank pain Physical Exam HEENT normocephalic Resp normal respiratory effort and normal air movement no CVA tenderness Extremity normal to inspection General Extremity: edema bilateral (trace ) NST FHR Rate Baby A Baseline: 140 Variability:: Moderate Accelerations:: 15 x 15 Decelerations:: None NST Reactive:: Yes FHR Category:: Category I Assessment & Plan (1) Back pain affecting : PLAN: sending home with [facility] call office saturday to give work fax number. WIll need to send letter to allow he to be off work going forward. Charges/Coding Multi Select Codes Visit Charges Office Visit/Consults: 11301 OV L3 Est Urinary/Genital Urinary/Genital CPT Codes: 55212-92 non-stress test Interp
== END 2021-03-11 21:50 | disposition home or self-care (01) ==
LOC: WPOUT 18:25 → WP 18:26
PROVIDERS: PCP Family Medicine; Visit Provider Obstetrics & Gynecology
DX: O26.899 Other specified pregnancy related conditions, unspecified trimester (principal); M54.9 Dorsalgia, unspecified; O99.013 Anemia complicating pregnancy, third trimester; D64.9 Anemia, unspecified; O99.280 Endocrine, nutritional and metabolic diseases complicating pregnancy, unspecified trimester; E03.9 Hypothyroidism, unspecified; O99.340 Other mental disorders complicating pregnancy, unspecified trimester; F41.9 Anxiety disorder, unspecified; Z3A.00 Weeks of gestation of pregnancy not specified; Z87.891 Personal history of nicotine dependence
CPT/HCPCS: 59025; 59050; 81002; 99218; G0378

== ENCOUNTER → 2021-03-17 12:11 | Outpatient (CLI) | payer BC, SELFPAY | PROVIDERS: PCP Family Medicine; Referring Provider Obstetrics & Gynecology; Visit Provider Obstetrics & Gynecology | DX: O09.90 Supervision of high risk pregnancy, unspecified, unspecified trimester (principal); Z3A.00 Weeks of gestation of pregnancy not specified | CPT/HCPCS: 87081 ==

== ENCOUNTER 2021-03-29 09:40 | Inpatient (IN) | payer BC, SELFPAY ==
[2021-03-29] VITALS (87 sets, daily range): BP systolic 82–136; BP diastolic 50–84; PULSE 64–105; RESP 18; TEMP 36.1–37.4; O2SAT 90–100; BMI 29.8
[2021-03-29] MEDS: Lactated Ringers 1,000 ML 50 ML IV (10:00)
[2021-03-29 10:18] LABS: Absolute Lymphocyte Count 2.44 X10^3/uL (0.83-4.51); Absolute Neutrophil Count 11.1 X10^3/uL (2.0-7.7); Basophil# 0.04 X10^3/uL; Basophil% 0.3 % (0-1); Eosinophil# 0.05 X10^3/uL; Eosinophils% 0.3 % (0-5); Hematocrit 34.5 % (37-47); Hemoglobin 10.8 g/dL (12.0-15.0); Lymphocyte # 2.44 X10^3/ul (0.83-4.51); Lymphocyte % 16.9 % (19-41); Mean Corp Hgb Conc 31.3 g/dL (32-36); Mean Corpuscular Hgb 21.5 pg (27.0-32.0); Mean Corpuscular Volume 68.7 fL (81-99); Monocyte# 0.73 X10^3/uL; NRBC Flagged by Analyzer 0 % (0-5); Neutrophil % 76.7 % (47-70); Platelet Count 222 K/mm3 (150-450); RBC Distribution Width CV 14.6 % (11.6-14.6); RBC Distribution Width SD 35.1 fl (35.1-43.9); Red Blood Count 5.02 M/mm3 (4.2-5.4); White Blood Count 14.5 K/mm3 (4.4-11.0)
[2021-03-29] MEDS: Lactated Ringers 500 ML 999 ML IV (11:59)
--- NOTE | 2021-03-29 13:07 | HP.PCM.OB_ITS ---
HPI - General General Date of Admission: 03/29/21 HPI Narrative OH RICE, is a 30 @ 38 weeks 5 days F who presents to L& D in active labor. She is painful and requesting an epidural. While in the office she was found to be 4 cm dilated. Per the nurse on L&D she was too uncomfortable to be re-checked. The plan is to let her have her epidural and re-check after that. Maternal Data Information HODAN Calculator Estimated Delivery Date Method Current WG Current Estimate 04/07/21 LMP (Uncertain) 38w 5d Other Estimates 04/06/21 Ultrasound #1 38w 6d PFSH PFSH Medical History Anemia Anxiety Bleeding in early GERD (gastroesophageal reflux disease) Hypothyroidism Low-lying placenta in second trimester Sleep apnea Home Medications calcium citrate 200 mg (950 mg) tablet 200 mg PO BID tab 11/11/17 [History Last Taken 03/29/21 07:30 200 mg] levothyroxine 50 mcg tablet 75 mcg PO DAILY tab 11/11/17 [History Last Taken 03/29/21 06:00 75 mcg] ferrous sulfate 325 mg PO DAILY 01/08/19 [History Last Taken 02/25/19] cyclobenzaprine 10 mg PO TID PRN 30 Days #30 tab 03/11/21 [Rx Last Taken 03/11/21 10 mg] Bariatric Multivitamins 1 cap PO .COMPLEX 03/29/21 [History Last Taken 03/29/21 07:30 1 cap] buspirone 7.5 mg PO BID 03/29/21 [History Last Taken 03/29/21 07:30 7.5 mg] Allergy/AdvReac Type Severity Reaction Status Date / Time Penicillins Allergy Hives Verified 03/29/21 08:33 Family History Father Diabetes Grandmother Breast cancer Colon cancer Grandfather Hypertension Heart disease Surgical History History of esophagogastroduodenoscopy (EGD) History of Jaki-en-Y gastric bypass S/P cholecystectomy Social History adopted: No household members: spouse, children and other details: mil and fazal number of children: 1 current occupational status: employed current occupation: [employer] Smoking Status: Light Smoker (<10/day) alcohol intake: never substance use type: does not use caffeine: Yes what type of physical activity do you participate in: walking seatbelt use: always do you feel safe at home: Yes additional social history: Jase- History 2 Elective abortions Hx Para 1 Spontaneous abortions Hx # Term Pregnancies Ectopic pregnancies Hx # Pregnancies Multiple births # of living children 1 Past Pregnancies Del. Date Name GA/Weeks Outcome Route Bth Weight Infant Gen Labor Lgth Anesthesia Del Locatn Provider FOB 02/26/19 Buzz 39 live - full term 6lbs 9oz Male epi dural [facility] Visit Details Expected Delivery Route/Plan Labor Preferences- CB/BF classes: no labor support person: Jase labor intervention preferences: prefers 39 week induction due to severe back pain. out of work since 35 weeks. pain management options preferred: epidural! cut cord/dad catch: yes : yes PP control planned: discussed discussed possible routes of delivery and associated risks: [] special requests: [] Plans COVID: counseled regarding risk of covid in vs vaccination and declined vaccination flu vaccine: given tdap vaccine: given rhogam: NA LARC form signed: yes movement and labor precautions reviewed. Problem list reviewed and updated with the most current plan of care details and appropriate orders placed. Relevant counseling for the gestational age provided. Continue routine care and follow up unless otherwise noted in visit notes/problem list details OB Flowsheet Initial Weight: 135 lb Date -?-?-?-?-?-?-?-?-?-?-?-?- EGA Weight BP Urine Prot -?-?-?-?-?-?-?-?-?-?-?-?- Glucose FHR FuHt Pres Dilation -?-?-?-?-?-?-?-?-?-?-?-?- Effaced St Visit Note 08/29/20 -?-?-?-?-?-?-?--?-?-?-?-?- 8w 3d 135 lb (+0 oz) 104/78 -?-?-?-?-?-?-?-?-?-?-?-?- 171 -?-?-?-?-?-?-?-?-?-?-?-?- GP - CRL 18mm co nsistent with LMP. 09/27/20 -?-?-?-?-?-?-?-?-?-?-?-?- 12w 4d 139 lb (+4 lb) 110/80 Negative -?-?-?-?-?-?-?-?-?-?-?-?- Negative 150 -?-?-?-?-?-?-?-?-?-?-?-?- SM- no vb crmapi ng, fatigue 10/24/20 -?-?-?-?-?-?-?-?-?-?-?-?- 16w 3d 144 lb (+9 lb) 90/60 Negative -?-?-?-?-?-?-?-?-?-?-?-?- Negative 135 -?-?-?-?-?-?-?-?-?-?-?-?- SM- reveiwed lab s no vb cramping 11/22/20 -?-?-?-?-?-?-?-?-?-?-?-?- 20w 4d 149 lb 8 oz (+14 lb 8 oz) 100/58 Trace -?-?-?-?-?-?-?-?-?-?-?-?- Negative 148 -?-?-?-?-?-?-?-?-?-?-?-?- MH-No VB, LOF. G ood Fm. Has anatomy US in [place] 11/2512/21/20 -?-?-?-?-?-?-?-?-?-?-?-?- 24w 5d 155 lb 8 oz (+20 lb 8 oz) 104/78 Negative -?-?-?-?-?-?-?-?-?-?-?-?- Negative 150 24 -?-?-?-?-?-?-?-?-?-?-?-?- GP - no ctx, LOF , VB, DFM. FU scan ordered for low-lying placenta. Plan home BGT monitoring for GDM screening given hx gastric bypass 01/19/21 -?-?-?-?-?-?-?-?-?-?-?-?- 28w 6d 161 lb (+26 lb) 98/72 Negative -?-?-?-?-?-?-?-?-?-?-?-?- Negative 148 28 -?-?-?-?-?-?-?-?-?-?-?-?- MH-No VB, LOF. G ood FM. 28 wk labs, tdap, larc. Considering flu vaccine. 02/03/21 -?-?-?-?-?-?-?-?-?-?-?-?- 31w 0d 104/80 Negative -?-?-?-?-?-?-?-?-?-?-?-?- Negative 145 31 Cephalic -?-?-?-?-?-?-?-?-?-?-?-?- SM- no vb lof go od fm no regular ctx SM- no vb lof good fm no reg ular ctx, buspar SM- no vb lof good fm no reg ular ctx, buspar ordered for anxiety 02/15/21 -?-?-?-?-?-?-?-?-?-?-?-?- 32w 5d 164 lb 6 oz (+29 lb 6 oz) 106/62 Negative -?-?-?-?-?-?-?-?-?-?-?-?- Negative 134 34 Cephalic -?-?-?-?-?-?-?-?-?-?-?-?- JV- no lof, vagi nal bleeding, or dec fm. pt declines covid vaccine. risks discussed. 03/01/21 -?-?-?-?-?-?-?-?-?-?-?-?- 34w 5d 167 lb 4 oz (+32 lb 4 oz) 108/82 Negative -?-?-?-?-?-?-?-?-?-?-?-?- Negative 127 35 Cephalic -?-?-?-?-?-?-?-?-?-?-?-?- JV- pt states th at she has started having severe back spasms. worse at work. Trying tylenol, heat, chiropractor, rest, back braces. thinking of stopping work at 37 weeks. pt ended up signing a uatsdin exemption form to get out of mandate for covid vaccine at work and is comfortable with this plan. 03/11/21 -?-?-?-?-?-?-?-?-?-?-?-?- 36w 1d 163 lb 5.8 oz (+28 lb 5.8 oz) 120/72 15 mg/dl (Negative) H -?-?-?--?-?-?-?-?-?-?-?-?- -?-?-?-?-?-?-?-?-?-?-?-?- 03/17/21 -?-?-?-?-?-?-?-?-?-?-?-?- 37w 0d 167 lb (+32 lb) 118/72 Negative -?-?-?-?-?-?-?-?-?-?-?-?- Negative 135 37 Cephalic 2 -?-?-?-?-?-?-?-?-?-?-?-?- 70 -1 Sm- no vb lof good fm no reuglar ctx. 03/22/21 -?-?-?-?-?-?-?-?-?-?-?-?- 37w 5d 167 lb (+32 lb) 102/60 Negative -?-?-?-?-?-?-?-?-?-?-?-?- Negative 152 37 Cephalic 2 -?-?-?-?-?-?-?-?-?-?-?-?- 70 -2 JV- no lof , vaginal bleeding, or dec fm. Pt is requesting a 39 week IOL due to exhaustion, back pain, and off work since 35 weeks JV- no lof, vaginal bleeding , or dec fm. Pt is requesting a 39 week IOL due to exhaustion, back pain, and off work since 35 weeks. WIll likely aim for 39 weeks 3 days to avoid holiday schedule. (apr 10) 03/29/21 -?-?-?-?-?-?-?-?-?-?-?-?- 38w 5d 169 lb 8 oz (+34 lb 8 oz) 120/80 Negative -?-?-?-?-?-?-?-?-?-?-?-?- Negative Cephalic 4 -?--?-?-?-?-?-?-?-?-?-?-?- 70 -2 MH-CTX Q10 min, more uncomfortable. No VB, LOF. Dec FM. To for evaluation 03/29/21 -?-?-?-?-?-?-?-?-?-?-?-?- 38w 5d 168 lb 10.458 oz (+33 lb 10.458 oz) 111/74 98/62 103/59 104/61 102/72 105/72 -?-?-?-?-?-?-?-?-?-?-?-?- -?-?-?-?-?-?-?-?-?-?-?-?- ROS Constitutional Constitutional: Denies change in weight, fatigue, fever(s), headache(s), poor appetite or weakness Eyes Eyes: Denies blurry vision, change in vision, seeing flashes or spots in vision ENT HEENT: Denies dizziness, headache(s), loss taste/smell or sore throat Cardiovascular Cardiovascular: Denies chest pain, dizziness, dyspnea, irregular heart rhythm, leg edema, palpitations, rapid heart rate or vomiting Respiratory/Chest Respiratory/Chest: Denies chest tightness, cough, dyspnea or breast pain Gastrointestinal Gastrointestinal: Denies abdominal pain, anorexia, constipation, cramping, diarrhea, hemorrhoids, vomiting or weight changes Genitourinary Genitourinary: Denies dysuria, flank pain, genital lesions, genital pain, urinary frequency or urinary urgency Musculoskeletal Musculoskeletal: Denies back pain, difficulty walking, joint pain, limited range of motion, muscle cramps or numbness Integumentary Integumentary: Denies lesions or unusual bruising Neurologic Neurologic: Denies abnormal movements, abnormal speech, dizziness, numbness, seizure-like activity or syncope Psychiatric Psychiatric: Denies anxiety, behavioral changes, change in appetite, change in libido, cognitive impairment, confusion, depression, difficulty concentrating, hallucinations or suicidal thoughts Endocrine Endocrinology: Denies excessive sweating, polydipsia or polyuria Hematologic/Lymphatic Hematologic/Lymphatic: Denies easy bleeding, easy bruising or lymphadenopathy Allergic/Immunologic Allergic/Immunologic: Denies itchy eyes, lip swelling, seasonal rhinorrhea, rhinitis, throat swelling, tongue swelling, eczemia, wheezing or asthma Vital Signs Vital Signs Vital Signs: 03/29/21 09:45 03/29/21 10:00 03/29/21 10:02 Temperature 97.8 F 97.9 F Temperature Source Temporal Pulse Rate 90 Blood Pressure 111/74 BP Systolic 111 BP Diastolic 74 Pulse Ox 03/29/21 12:04 03/29/21 12:05 03/29/21 12:40 Temperature 97.0 F L Temperature Source Temporal Pulse Rate 70 105 H Blood Pressure 98/62 BP Systolic 98 BP Diastolic 62 Pulse Ox 100 98 03/29/21 12:45 03/29/21 12:47 03/29/21 12:50 Temperature Temperature Source Pulse Rate 78 81 Blood Pressure 103/59 L BP Systolic 103 BP Diastolic 59 Pulse Ox 100 100 03/29/21 12:51 03/29/21 12:55 03/29/21 12:56 Temperature Temperature Source Pulse Rate 86 81 Blood Pressure 104/61 102/72 BP Systolic 104 102 BP Diastolic 61 72 Pulse Ox 100 03/29/21 13:00 03/29/21 13:01 03/29/21 13:05 Temperature Temperature Source Pulse Rate 76 72 79 Blood Pressure 105/72 BP Systolic 105 BP Diastolic 72 Pulse Ox 100 100 Weight Weight: 168 lb 10.458 oz Body Mass Index (BMI) 29.8 Physical Exam Const alert, oriented x3, no apparent distress and healthy appearing General Appearance: cooperative; Negative for anxious HEENT normocephalic Face and Sinus: normal facial exam Eyes EOMs intact bilaterally and no scleral icterus General Eye: normal appearance of both eyes Neck full ROM and supple Lymph Lymphatic: no lymphadenopathy noted Chest Chest: abnormal inspection of the chest Resp normal respiratory effort Effort and Inspection: able to speak in complete sentences Cardio regular rate GI soft to palpation and non-tender Inspection: gravid Palpation: soft; Negative for tender external exam normal Amniotic Fluid: other cx 4/80/-2 Back/Spine no CVA tenderness Extremity normal to inspection, full ROM and no clubbing, cyanosis or edema General Extremity: Negative for calf tenderness or edema Skin Lesions: no lesions Rashes: no rashes Psych mental status grossly normal Labs Labs Labs: Blood Type A POSITIVE Antibody Screen NEGATIVE Hct 34.5 % (37-47) L Hgb 10.8 g/dL (12.0-15.0) L Pap Smear Negative Obstetrics US Syphilis Total Ab Non-reactive Rubella IgG Antibody Reactive (Nonreactive) Hep Bs Antigen Non-Reactive (Nonreactive) Neisseria gonorrhoeae DNA (NANO) Negative (Negative) HIV 1&2 Antibody Non-Reactive (Nonreactive) C.trachomatis DNA (PCR) Negative (Negative) Rhogam given: No Miscellaneous Test Assessment & Plan (1) Anxiety during : COMMENT: annie, counseling recommended (2) Hypothyroid in , antepartum: COMMENT: TSH every trimester; NL 01/19 (3) Supervision of high risk , antepartum: COMMENT: AR HODAN 04/07/21; girl PC: Buzz. Spouse:Jase IOL at 39 weeks for back pain scheduled 04/03/21 out of work on 04/03/21. (4) : QUALIFIERS: Weeks of gestation: 38 weeks Qualified Code(s): Z3A.38 - 38 weeks gestation of COMMENT: NIPT low risk, declines carrier and ntd screen. nl anatomy. GBS neg (5) History of Jaki-en-Y gastric bypass: COMMENT: extra vitamins, will do 1 week of blood sugar checks for glucose screening- pt had all normal glucose levels after a 2 week screening. (6) Active labor at term: PLAN: Patient presents IAL, plan expectant management for , pitocin/AROM PRN if needed. Pain management: plans epidural. GBS negative . Management of any complications: [none] I have reviewed the [facility] and made any clinically relevant updates.
[2021-03-29] MEDS: fentaNYL-bupivacaine (epidural) 100 ML BAG EPIDURAL ×2 (13:08→17:15)
[2021-03-29] MEDS: Oxytocin 30 units/NS 500 ml 30 UNITS/500 ML IV.SOLN IV (14:31)
[2021-03-29] MEDS: Lactated Ringers 1,000 ML 200 ML IV ×2 (14:55→18:43)
[2021-03-29] MEDS: Oxytocin 30 units/NS 500 ml 30 UNITS/500 ML IV.SOLN 334 UNITS IV (19:00)
--- NOTE | 2021-03-29 19:11 | OP.PCM_ITS ---
Maternal Data Information HODAN Calculator Estimated Delivery Date Method Current WG Current Estimate 04/07/21 LMP (Uncertain) 38w 5d Other Estimates 04/06/21 Ultrasound #1 38w 6d Vaginal Delivery Maternal Presentation Maternal Presentation: Active Labor Type of Induction: Pitocin Operative Information Date of Procedure: 03/29/21 Pre-Operative Diagnosis: 38 weeks 5 days active labor Post-Operative Diagnosis: 38 weeks 5 days active labor Surgery / Procedure Performed: Spontaneous Vaginal Delivery Type of Anesthesia: Epidural Estimated Blood Loss: 100cc Time of Delivery: 18:54 Findings Description of Procedure: Patient began pushing and delivered the head in the CASSIUS presentation. The head was delivered atraumatically and a loose nuchal cord ?1 was identified was noted to be snug. The infant delivered through the nuchal cord. The anterior and posterior shoulders delivered without complication followed by the rest of the and the infant was placed on the maternal abdomen. Delayed cord clamping was employed for approximately 60 seconds. Cord was clamped and cut and gentle traction was applied to the cord and the placenta delivered spontaneously immediately following it was noted to be intact with three-vessel cord. The perineum and vagina were inspected and noted to have no laceration. EBL was 100 cc. Patient and infant tolerated delivery well. Presentation: Vertex Amniotic Membrane Rupture Type: Artificial Time of Membrane Rupture: approximately 1400 Amniotic Fluid Description: Clear Placental Delivery Description: Spontaneous Placenta Disposition: [facility] Cord Vessel Description: 3 Vessels Cord Entanglement: Around neck x 1, tight Nuchal Cord Compression: With compression Infant A Gender: Female (1 minute): 8 (5 minute): 9 Delayed Cord Clamping: Yes Post Vaginal Delivery Medications Given After Delivery: IV Pitocin Episiotomy Description: None Laceration: None Complication Complications: None Multi Select Codes Urinary/Genital Urinary/Genital CPT Codes: 30857 Vaginal Delivery [facility]
--- NOTE | 2021-03-29 19:15 | DS.PCM_ITS ---
Providers Date of Admission: 03/29/21 Primary Care Physician: Dr. Isaias Bruno MD Reason For Visit: VAGINAL DELIVERY Diagnosis Discharge Diagnosis (1) Anxiety during : Status: Acute Code(s): O99.340 - Other mental disorders complicating , unspecified trimester; F41.9 - Anxiety disorder, unspecified (2) Hypothyroid in , antepartum: Status: Acute Code(s): O99.280 - Endocrine, nutritional and metabolic diseases complicating , unspecified trimester; E03.9 - Hypothyroidism, unspecified (3) Supervision of high risk , antepartum: Status: Resolved Code(s): O09.90 - Supervision of high risk , unspecified, unspecified trimester (4) : Status: Resolved Code(s): Z34.90 - Encounter for supervision of normal , unspecified, unspecified trimester Qualifiers: Weeks of gestation: 38 weeks Qualified Code(s): Z3A.38 - 38 weeks gestation of (5) History of Jaki-en-Y gastric bypass: Status: Acute Code(s): Z98.84 - Bariatric surgery status (6) Active labor at term: Status: Resolved Medications at Discharge Home Medications calcium citrate 200 mg (950 mg) tablet 200 mg PO BID tab 11/11/17 levothyroxine 50 mcg tablet 75 mcg PO DAILY tab 11/11/17 ferrous sulfate 325 mg PO DAILY 01/08/19 cyclobenzaprine 10 mg PO TID PRN 30 Days #30 tab 03/11/21 Bariatric Multivitamins 1 cap PO .COMPLEX 03/29/21 buspirone 7.5 mg PO BID 03/29/21 docusate sodium [Colace] 100 mg PO DAILY 14 Days #14 cap 03/29/21 ibuprofen 800 mg PO Q8H PRN 7 Days #30 tab 03/29/21 docusate sodium [Colace] 100 mg PO DAILY 14 Days #14 cap 03/30/21 ibuprofen 800 mg PO Q8H PRN 7 Days #30 tab 03/30/21 oxycodone-acetaminophen 1 - 2 tab PO Q6H PRN 3 Days #10 tab 03/30/21 Physical Exam Const alert, oriented x3 and no apparent distress General Appearance: cooperative and comfortable Resp normal respiratory effort Cardio regular rate GI normal to inspection, nondistended, normoactive bowel sounds GI Narrative: uterus is firm below umbilicus Palpation: soft Bimanual Exam - Adnexa, Other: Negative for cul-de-sac fullness Back/Spine no CVA tenderness and thoraco-lumbar ROM normal Extremity normal to inspection, no clubbing, cyanosis or edema, no calf tenderness and no pedal edema Psych mental status grossly normal, thought process normal, cooperative, affect normal, speech normal, activity/motor behavior normal, denies homicidal ideation and denies suicidal ideation Weight / BMI Weight Weight: 168 lb 10.458 oz Body Mass Index (BMI) 29.8 ABG / Lab / Microbiology Data Result Diagrams: 03/29/21 10:00 Laboratory: Laboratory Results - last 24 hr 03/29/21 10:00: WBC 14.5 H, RBC 5.02, Hgb 10.8 L, Hct 34.5 L, MCV 68.7 L, MCH 21 .5 L, MCHC 31.3 L, RDW Std Deviation 35.1, RDW Coeff of Olimpia 14.6, Plt Count 222, Immature Gran % (Auto) 0.800, Neut % (Auto) 76.7 H, Lymph % (Auto) 16.9 L, [place] % (Auto) 5.0, Eos % (Auto) 0.3, Baso % (Auto) 0.3, Absolute Neuts (auto) 11.1 H , Absolute Lymphs (auto) 2.44, Nucleated RBC % 0 03/29/21 10:00: Blood Type A POSITIVE, Antibody Screen NEGATIVE Microbiology: Microbiology 03/29/21 10:15 Nasal Secretion SARS-CoV-2 Antigen (Rapid) - Final D/C Instructions Discharge Diet: No restrictions Discharge Activity: Return to Normal Activity, May Not Drive (while taking narcotic pain medications.) and May Shower May resume sexual activity in: 4-6 weeks Call your doctor if your incision/area has: Continuous Slow Oozing, Sudden Increased Bleeding, Increased Pain/ Swelling, Increased Redness and Foul Smelling Discharge Please Follow Up With: Annie Abernathy DO When: Call [phone] to make an appointment with your doctor in 6 weeks. If you had elevated blood pressure or 4th degree laceration, you will need to be seen in 2 weeks. Meaningful Use Info Meaningful Use Diagnoses (Choose all that apply): None applicable Discharge Plan Admission Admit Date/Time: 03/29/21 09:40 Primary Reason for Your Visit: vaginal delivery Attending Provider: Annie Abernathy Primary Care Provider: Isaias Bruno Discharge Orders/Prescriptions Prescriptions: New ibuprofen 800 mg tablet 800 mg PO Q8H PRN (Reason: pain) 7 Days Qty: 30 RF: 0 docusate sodium [Colace] 100 mg capsule 100 mg PO DAILY 14 Days Qty: 14 RF: 0 ibuprofen 800 mg tablet 800 mg PO Q8H PRN (Reason: pain) 7 Days Qty: 30 RF: 0 oxycodone-acetaminophen [oxycodone-acetaminophen] 1 TABLET tablet 1 - 2 tab PO Q6H PRN (Reason: pain) 3 Days Qty: 10 RF: 0 docusate sodium [Colace] 100 mg capsule 100 mg PO DAILY 14 Days Qty: 14 RF: 0 Continued calcium citrate 200 mg (950 mg) tablet 200 mg PO BID RF: 0 levothyroxine 50 mcg tablet 75 mcg PO DAILY RF: 0 ferrous sulfate 325 MG tablet 325 mg PO DAILY RF: 0 cyclobenzaprine 10 mg tablet 10 mg PO TID PRN (Reason: muscle spasm) 30 Days Qty: 30 RF: 1 buspirone 7.5 mg tablet 7.5 mg PO BID RF: 0 Bariatric Multivitamins 45 mg iron- 800 mcg-120 mcg capsule 1 cap PO .COMPLEX RF: 0 Referrals / Follow Up: Isaias Bruno MD [Primary Care Provider] - Disposition Disposition (needs filled in before D/C Order can be placed): Home, Self Care
[2021-03-29] MEDS: Acetaminophen 500 MG Tablet 1000 MG PO (19:48)
[2021-03-29] MEDS: 0.9% Saline Lock 10 ML Syringe IV (21:28)
[2021-03-29] MEDS: busPIRone 15 MG TABLET 7.5 MG PO (22:32)
--- NOTE | 2021-03-29 23:45 | NURSING ---
bedside report given to Brijesh Torres RN who is assuming care of pt at this time
[2021-03-30 03:42] VITALS: BP 104/55; PULSE 75; RESP 16; TEMP 36.6
[2021-03-30] MEDS: Levothyroxine 75 MCG Tablet PO (05:51)
[2021-03-30 07:40] VITALS: BP 101/59; PULSE 69; RESP 16; TEMP 36.7
[2021-03-30] MEDS: Acetaminophen 500 MG Tablet 1000 MG PO ×2 (07:49→13:57)
[2021-03-30] MEDS: Multivitamins,Ther W-Minerals Tablet 1 TABLET PO (07:49)
[2021-03-30] MEDS: busPIRone 15 MG TABLET 7.5 MG PO (09:04)
[2021-03-30] MEDS: Ferrous Sulfate 325 MG Tablet PO (09:04)
[2021-03-30 11:40] VITALS: BP 110/68; PULSE 68; RESP 16; TEMP 36.6; O2SAT 98
--- NOTE | 2021-03-30 15:42 | CM.ED ---
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 SW noted that patient is doing well with breast feeding the nb. MOB Other children: 2 year old Buzz Housing: Patient, FOCamilo and their 2 children reside in an apartment in [place] Transportation: Patient has access and is able to drive a vehicle. Supplies: Carseat, crib, bassinet and all supplies per patient Supports: Patient said that her support include her , her mother and FOB's mother and her sister. Patient said that her grandmothers are both retired and able to help. Patient and FOCamilo's family reside locally in the [facility] area. Education Level: Patient graduated high school and had some college. No learning issues or delays. 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 Patient said that she is hoping with her 's schedule and her schedule that they, as well as family, can care for the nb. Patient said that they have a regulation supervisor secured as a back up. Agency Involvement: Denied FOB: Jase Time Together: 12 years Involved at : Yes Employment: [employer]. Patient said that he plans to go back to work as he works for 2 days and then has 3 days off due to the holiday. Patient's other children: Buzz with patient. FOB MH/DV and AOD use: Denied by FOB Patient MH History: Patient said that she has been on buspar for anxiety and noticed that it has been helpful. Patient said that she noticed she felt not like myself so she went to the doctor and began buspar on . Patient denied any history of PPD. Per SI/HI screen patient denied SI/HI on 03/29 Patient was educated on Post Depression, Safe Sleeping and Shaken Baby. Patient denied AOD use during . Patient said that when she is not she rarely drinks. She said but I will have a glass of wine on Tess. Patient reports she smokes but indicated she smokes outside. Patient was educated on being aware of the smoke in regards to 's lungs. Patient was also educated to ensure that appropriate adult is inside with when she goes outside. Patient verbalized understanding. SW provided patient with information on PPD including counselors, contact phone numbers and web sites that provide support for PPD. Plan: Home with Nb JULIÁN updated JOSH Serna about discharge. JOSH Serna voiced no concerns regarding patient and the nb. Ashli LEMA
[2021-03-30 16:23] VITALS: BP 97/60; PULSE 69; RESP 18; TEMP 36.6
[2021-03-30 19:44] VITALS: BP 100/55; PULSE 69; RESP 18; TEMP 36.6
== END 2021-03-30 21:45 | disposition home or self-care (01) | DRG 807 ==
PROVIDERS: Admitting Provider Obstetrics & Gynecology; PCP Family Medicine; Referring Provider Obstetrics & Gynecology; Visit Provider Obstetrics & Gynecology
DX: O69.1XX0 Labor and delivery complicated by cord around neck, with compression, not applicable or unspecified (principal); Z37.0 Single live birth; Z3A.38 38 weeks gestation of pregnancy; K21.9 Gastro-esophageal reflux disease without esophagitis; O99.284 Endocrine, nutritional and metabolic diseases complicating childbirth; E03.9 Hypothyroidism, unspecified; O99.344 Other mental disorders complicating childbirth; F41.9 Anxiety disorder, unspecified; O99.844 Bariatric surgery status complicating childbirth; F17.200 Nicotine dependence, unspecified, uncomplicated; O99.334 Smoking (tobacco) complicating childbirth; Z79.899 Other long term (current) drug therapy; Z79.890 Hormone replacement therapy
CPT/HCPCS: 59025; 59050; 85025; 86850; 86900; 86901; 87426; 99218; J7120; A4216; G0378

== ENCOUNTER 2022-03-08 15:06 | Outpatient (CLI) | payer BC, SELFPAY ==
[2022-03-08 18:42] LABS: Thyroid Stim Hormone (TSH) 2.22 uIU/mL (0.358-3.74)
== END 2022-03-08 23:59 | disposition home or self-care (01) ==
LOC: BFHLAB 15:07
PROVIDERS: PCP Family Medicine; Visit Provider Family Medicine
DX: E03.9 Hypothyroidism, unspecified (principal)
CPT/HCPCS: 36415; 84443

== ENCOUNTER → 2022-05-24 | Outpatient (CLI) | payer BC, SELFPAY ==
[2022-05-24 12:12] LABS: Absolute Lymphocyte Count 1.87 X10^3/uL (0.83-4.51); Absolute Neutrophil Count 5.6 X10^3/uL (2.0-7.7); Basophil# 0.05 X10^3/uL; Basophil% 0.6 % (0-1); Eosinophil# 0.11 X10^3/uL; Eosinophils% 1.3 % (0-5); Hemoglobin 8.6 g/dL (12.0-15.0); Lymphocyte # 1.87 X10^3/ul (0.83-4.51); Lymphocyte % 22.9 % (19-41); Mean Corp Hgb Conc 28.7 g/dL (32-36); Mean Corpuscular Hgb 16.7 pg (27.0-32.0); Mean Corpuscular Volume 58.3 fL (81-99); Monocyte# 0.52 X10^3/uL; Monocyte% 6.4 % (0-10); NRBC Flagged by Analyzer 0.4 % (0-5); Neutrophil # 5.58 X10^3/uL (2.7-7.7); Neutrophil % 68.4 % (47-70); POSITIVE MORPHOLOGY YES; Platelet Count 356 K/mm3 (150-450); RBC Distribution Width CV 22.2 % (11.6-14.6); RBC Distribution Width SD 41.3 fl (35.1-43.9); Red Blood Count 5.15 M/mm3 (4.2-5.4); White Blood Count 8.2 K/mm3 (4.4-11.0)
[2022-05-24 12:14] LABS: Differential Indicated SCAN CRITERIA MET
[2022-05-24 12:33] LABS: ALB/GLOB Ratio 0.8 RATIO (0.9-2.4); AST(SGOT) 12 U/L (15-37); Alanine Aminotransfer ALT/SGPT 18 U/L (13-56); Albumin, Serum 3.4 g/dL (3.2-5.0); Alkaline Phosphatase 41 U/L (45-117); Anion Gap 6 (5-15); BUN 19 mg/dL (7-18); BUN/Creat Ratio 22.5 RATIO (10-20); Calcium,Total 9.2 mg/dL (8.5-10.1); Chloride 106 mmol/L (98-107); Creatinine, Serum 0.84 mg/dL (0.55-1.02); EST Glomerular Filtration Rate 83 mL/min (>60); Est Glom Filt Rate - Afr Amer 100 mL/min (>60); Globulin 4.1 g/dL (2.2-4.2); Glucose 86 mg/dL (74-106); Potassium 4.4 mmol/L (3.5-5.1); Protein, Total 7.5 g/dL (6.4-8.2); Sodium Level 140 mmol/L (136-145)
[2022-05-24 12:37] LABS: Vitamin B12 717 pg/mL (211-911); Vitamin D,25 Hydroxy 44.5 ng/mL
[2022-05-24 13:06] LABS: Anisocytosis 2+
[2022-05-24 16:08] LABS: Ferritin 2 ng/mL (8-252); Iron 41 ug/dL (50-170); Iron Binding Capacity,Total 457 ug/dL (250-450)
[2022-05-27 08:31] LABS: Vitamin B1, Thiamine 152.9 nmol/L (66.5-200.0)
== END | disposition home or self-care (01) ==
LOC: BIMLAB 09:59
PROVIDERS: PCP Internal Medicine; Referring Provider Internal Medicine; Visit Provider Internal Medicine
DX: F41.9 Anxiety disorder, unspecified (principal); F32.A Depression, unspecified; E03.9 Hypothyroidism, unspecified; D50.9 Iron deficiency anemia, unspecified
CPT/HCPCS: 36415; 80053; 82306; 82607; 82728; 83540; 83550; 84425; 85025

== ENCOUNTER 2022-05-26 19:18 | Emergency (ER) | payer BC, SELFPAY ==
[2022-05-26 19:19] VITALS: BP 117/85; PULSE 99; RESP 16; TEMP 36.2; O2SAT 100; BMI 25.4
--- NOTE | 2022-05-26 19:47 | EKG12_ITS ---
Test Reason : HEADACHE Blood Pressure : / mmHG Vent. Rate : 087 BPM Atrial Rate : 087 BPM P-R Int : 128 ms QRS Dur : 082 ms QT Int : 372 ms P-R-T Axes : 049 031 027 degrees QTc Int : 447 ms Normal sinus rhythm Normal ECG Confirmed by JASON MACE, ENRIQUE ([id number]), editor school photograph LASHAUN SPENCER ([id number]) on 05/28/2022 2:01:45 PM Referred By: Austin Eli Confirmed By:ENRIQUE GOMEZ MD
[2022-05-26] MEDS: DiphenhydrAMINE 50 MG/ML Syringe 25 MG IV (20:01)
[2022-05-26] MEDS: Metoclopramide 10 MG/2 ML Vial IV (20:01)
[2022-05-26] MEDS: 0.9% Normal Saline 1,000 ML 1000 ML IV (20:06)
[2022-05-26 20:22] LABS: Absolute Lymphocyte Count 2.75 X10^3/uL (0.83-4.51); Absolute Neutrophil Count 3.9 X10^3/uL (2.0-7.7); Basophil# 0.04 X10^3/uL; Basophil% 0.5 % (0-1); Eosinophil# 0.11 X10^3/uL; Eosinophils% 1.5 % (0-5); Hemoglobin 8.7 g/dL (12.0-15.0); Lymphocyte # 2.75 X10^3/ul (0.83-4.51); Lymphocyte % 37.6 % (19-41); Mean Corpuscular Hgb 16.5 pg (27.0-32.0); Mean Corpuscular Volume 56.8 fL (81-99); Monocyte# 0.45 X10^3/uL; Monocyte% 6.2 % (0-10); NRBC Flagged by Analyzer 0 % (0-5); Neutrophil # 3.93 X10^3/uL (2.7-7.7); Neutrophil % 53.8 % (47-70); POSITIVE MORPHOLOGY YES; Platelet Count 368 K/mm3 (150-450); RBC Distribution Width CV 22.3 % (11.6-14.6); RBC Distribution Width SD 41.3 fl (35.1-43.9); Red Blood Count 5.28 M/mm3 (4.2-5.4); White Blood Count 7.3 K/mm3 (4.4-11.0)
[2022-05-26 20:40] LABS: D-Dimer Quantitative (DVT/PE) 2.45 FEU/ug/m (0.27-0.49)
[2022-05-26 20:41] LABS: Differential Indicated SCAN CRITERIA MET
[2022-05-26 20:44] LABS: Differential Comment SCANNED
[2022-05-26 20:46] LABS: Anisocytosis 1+
[2022-05-26 20:49] LABS: ALB/GLOB Ratio 0.8 RATIO (0.9-2.4); AST(SGOT) 13 U/L (15-37); Alanine Aminotransfer ALT/SGPT 19 U/L (13-56); Albumin, Serum 3.4 g/dL (3.2-5.0); Alkaline Phosphatase 40 U/L (45-117); Anion Gap 7 (5-15); BUN 18 mg/dL (7-18); BUN/Creat Ratio 21.7 RATIO (10-20); Calcium,Total 9.3 mg/dL (8.5-10.1); Chloride 107 mmol/L (98-107); Creatinine, Serum 0.83 mg/dL (0.55-1.02); EST Glomerular Filtration Rate 84 mL/min (>60); Est Glom Filt Rate - Afr Amer 102 mL/min (>60); Estimated Creatinine Clearance 79.75 ml/min; Globulin 4.1 g/dL (2.2-4.2); Glucose 92 mg/dL (74-106); Protein, Total 7.5 g/dL (6.4-8.2); Sodium Level 140 mmol/L (136-145); Thyroid Stim Hormone (TSH) 2.97 uIU/mL (0.358-3.74); Troponin-I HS < 3 pg/mL (3.0-54.0)
[2022-05-26 20:54] LABS: Internal QC Validated? YES +Cl - CLEAR BKGD; Pregnancy, Serum, hCG Quali. NEGATIVE Negative
--- NOTE | 2022-05-26 21:10 | EDS_ITS ---
HPI History of Present Illness Chief Complaint: Headache [facility] Medical History (Updated 05/26/22 @ 22:[address] Austin Eli, DO) Anemia Anxiety Anxiety during GERD (gastroesophageal reflux disease) Hypothyroidism Low-lying placenta in second trimester Sleep apnea Home Medications [id number] 45 mg-folic acid 800 mcg-vit K 120 mcg capsule (Bariatric Multivitamins) 1 cap PO .COMPLEX 03/29/21 [History Last Taken 03/29/21 07:30 1 cap] bupropion HCl 200 mg tablet,12 hr sustained-release (Wellbutrin SR) 200 mg PO BID #180 ea 05/24/22 [Rx Last Taken Unknown] buspirone 10 mg tablet 10 mg PO BID anxiety #60 tabs 05/24/22 [Rx Last Taken Unknown] calcium citrate 200 mg (950 mg) tablet 500 mg PO BID supplement 05/24/22 [History Last Taken Unknown] levothyroxine 50 mcg tablet 75 mcg PO DAILY thyroid #90 tabs 05/24/22 [Rx Last Taken Unknown] norgestimate-ethinyl estradiol 0.18 mg/0.215mg/0.25mg-35 mcg(28)tablet 1 tab PO DAILY 05/24/22 [History Last Taken Unknown] Allergy/AdvReac Type Severity Reaction Status Date / Time Penicillins Allergy Hives Verified 05/26/22 19:22 Family History (Updated 05/24/22 @ 09:[address] Carri Amado MD) Father Diabetes Grandmother Breast cancer Colon cancer Grandfather Hypertension Heart disease Mother Diabetes Hypertension Grandmother Diabetes Hypertension Surgical History History of esophagogastroduodenoscopy (EGD) History of Jaki-en-Y gastric bypass S/P cholecystectomy Social History (Updated 05/24/22 @ 09:[address] Carri Amado MD) adopted: No household members: spouse, children and other details: mil and fazal number of children: 2 current occupational status: employed current occupation: [employer] Smoking Status: Current every day smoker tobacco type: cigarettes Electronic Cigarette Use: not used quit status: considering quitting alcohol intake: never substance use type: does not use caffeine: Yes what type of physical activity do you participate in: walking seatbelt use: always do you feel safe at home: Yes additional social history: Jase- EXAM Physical Exam Const Vital Signs: 05/26/22 19:19 Temperature 97.2 F L Temperature Source Temporal Pulse Rate 99 Respiratory Rate 16 Blood Pressure 117/85 H Blood Pressure Mean 95 Pulse Ox 100 Oxygen Delivery Method Room Air MDM MDM MDM Narrative Medical decision making narrative: Differential diagnosis includes cardiac dysrhythmia, cardiac ischemia, anemia, intracranial bleeding, hypothyroidism, pulmonary embolism, electrolyte abnormality, COVID infection, influenza infection, or other viral illness. CBC will be obtained to assess for leukocytosis and anemia. Comprehensive metabolic profile will be obtained to assess for electrolyte abnormality, renal function, and hepatic function. TSH will be obtained to assess for hypothyroidism. D- dimer will be obtained to assess for pulmonary embolism. CT scan of the brain will be obtained to assess for intracranial bleeding. EKG will be obtained to assess for cardiac dysrhythmia and cardiac ischemia. High-sensitivity troponin will be obtained to assess for cardiac ischemia. Serum hCG will be obtained to assess for . Patient was given IV fluids, Reglan, and Benadryl. Lab Data Attestation: I reviewed the patient's lab results. Lab results narrative: CBC was reviewed. There is a mild anemia with a hemoglobin of 8.7 and hematocrit 30.0. This is slightly increased from CBC done as an outpatient 2 days ago. Comprehensive metabolic profile was reviewed and was essentially within normal limits. High-sensitivity troponin was reviewed and was less than 3. D-dimer was reviewed and was elevated at 2.45. TSH was reviewed and was normal at 2.97. Serum hCG was reviewed and was negative. COVID-19 rapid antigen was reviewed and was negative. Influenza A and influenza B rapid antigens were reviewed and were negative. Labs: Laboratory Results - last 24 hr 05/26/22 05/26/22 05/26/22 20:00 20:00 20:00 WBC 7.3 RBC 5.28 Hgb 8.7 L Hct 30.0 L MCV 56.8 L MCH 16.5 L MCHC 29.0 L RDW Std Deviation 41.3 RDW Coeff of [place]lim[place] 22.3 H Plt Count 368 Immature Gran % (Auto) 0.400 Neut % (Auto) 53.8 Lymph % (Auto) 37.6 [place] % (Auto) 6.2 Eos % (Auto) 1.5 Baso % (Auto) 0.5 Absolute Neuts (auto) 3.9 Absolute Lymphs (auto) 2.75 Nucleated RBC % 0 Differential Comment SCANNED Anisocytosis 1+ D-Dimer Quant (PE/DVT) 2.45 H* Sodium 140 Potassium 4.0 Chloride 107 Carbon Dioxide 26.0 Anion Gap 7 BUN 18 Creatinine 0.83 Estim Creat Clear Calc 79.75 Est GFR (MDRD) Af Amer 102 Est GFR (MDRD) Non-Af 84 BUN/Creatinine Ratio 21.7 H Glucose 92 Calcium 9.3 Total Bilirubin 0.30 AST 13 L ALT 19 Alkaline Phosphatase 40 L Troponin I High Sens < 3 L Total Protein 7.5 Albumin 3.4 Globulin 4.1 Albumin/Globulin Ratio 0.8 L TSH 2.97 Serum , Qual 05/26/22 20:30 WBC RBC Hgb Hct MCV MCH MCHC RDW Std Deviation RDW Coeff of [place] Plt Count Immature Gran % (Auto) Neut % (Auto) Lymph % (Auto) [place] % (Auto) Eos % (Auto) Baso % (Auto) Absolute Neuts (auto) Absolute Lymphs (auto) Nucleated RBC % Differential Comment Anisocytosis D-Dimer Quant (PE/DVT) Sodium Potassium Chloride Carbon Dioxide Anion Gap BUN Creatinine Estim Creat Clear Calc Est GFR (MDRD) Af Amer Est GFR (MDRD) Non-Af BUN/Creatinine Ratio Glucose Calcium Total Bilirubin AST ALT Alkaline Phosphatase Troponin I High Sens Total Protein Albumin Globulin Albumin/Globulin Ratio TSH Serum , Qual NEGATIVE Radiography Diagnostic Testing: Clinical Impression(s) from Imaging Studies Brain CT 05/26/22 21:15 IMPRESSION: Negative head/brain CT without intravenous contrast. Electronically Signed: Silverio Heck MD at 21:54 EST , Chest CTA 05/26/22 21:15 IMPRESSION: Negative CTA chest. Electronically Signed: Silverio Heck MD at 21:56 EST , CT scan of the brain was obtained. There is no acute intracranial abnormality. This was interpreted by the radiologist and was also independently reviewed by myself. Because of the elevated D-dimer, CTA of the chest was obtained. There is no evidence of pulmonary embolism or aortic dissection. There is no acute cardiopulmonary process noted. This was interpreted by the radiologist and was also independently reviewed by myself. EKG Initial EKG: Attestation: I personally reviewed and interpreted this EKG as follows: Interpretation: Sinus Rhythm (87) and No Acute Injury Pattern Comments: EKG was obtained. On my independent interpretation, it showed a normal sinus rhythm with a rate of 87. [place] interval, QRS interval, and QTc intervals were all normal. [place] was normal. There are no acute ST or T wave changes. Prior EKG tracings: available for review Prior: Unchanged (11/21/2017) Treatment and Re-Evaluation Narrative: Patient was given IV fluids, Reglan, and Benadryl. Patient states her headache has resolved on reevaluation. Patient was advised of her findings. Patient was instructed to follow-up with her primary care physician in 5 to 7 days for further evaluation of her anemia. Patient understands and is agreeable with the plan. All questions were answered. Discharge Plan Triage Chief Complaint: Headache ED Provider: Austin Eli Dx/Rx/DC Orders Clinical Impression: Anemia, Headache Instructions: ED Anemia, Type Not Specified (Adult), ED Headache Unspecified Prescriptions: No Action calcium citrate 200 mg (950 mg) tablet 500 mg PO BID norgestimate-ethinyl estradiol 0.18/0.215/0.25 mg-35 mcg (28) tablet 1 tab PO DAILY buspirone 10 mg tablet 10 mg PO BID Qty: 60 0RF bupropion HCl [Wellbutrin SR] 200 mg tablet sustained-release 12 hr 200 mg PO BID Qty: 180 1RF levothyroxine 50 mcg tablet 75 mcg PO DAILY Qty: 90 1RF Bariatric Multivitamins 45 mg iron- 800 mcg-120 mcg capsule 1 cap PO .COMPLEX Rx Instructions: 1 cap PO daily; Primary Care Provider: Carri Amado Referrals: Carri Amado MD [Primary Care Provider] - 5-7 Days Disposition Disposition: Home, Self Care
--- NOTE | 2022-05-26 21:15 | CT_ITS ---
EXAM: CT ANGIOGRAPHY CHEST WITHOUT AND WITH INTRAVENOUS CONTRAST CLINICAL INDICATION: Elevated D-dimer TECHNIQUE: Helically acquired angiography images were obtained of the chest without and with intravenous contrast. This CT exam was performed using one or more of the following dose reduction techniques: automated exposure control, adjustment of the mA and/or kV according to patient size, and/or use of iterative reconstruction technique. This report was created using [employer] report generation technology. MIP reconstructed images were created and reviewed. CONTRAST: 100ML OF ISOVUE 370 COMPARISON: None. FINDINGS: PULMONARY ARTERIES: Unremarkable. Normal in caliber. No evidence of pulmonary embolism. AORTA: Unremarkable. Normal in caliber. No evidence of dissection. GREAT VESSELS OF AORTIC ARCH: Unremarkable. Normal in caliber. No evidence of dissection. LUNGS AND PLEURAL SPACES: Unremarkable. No mass. No consolidation or edema. No pleural effusion or thickening. No pneumothorax. HEART: Unremarkable. Heart size is normal. No pericardial effusion. No signs of right heart strain, ratio of right ventricle to left ventricle measures less than 1. MEDIASTINUM: Unremarkable. No mediastinal or hilar adenopathy. Esophagus is unremarkable. No hiatal hernia. THYROID: Unremarkable. No thyroid lesions. BONES/JOINTS: Unremarkable. No suspicious lytic or blastic abnormality. CT/CTA Chest W/WO Contrast IMPRESSION: Negative CTA chest. Electronically Signed: Silverio Heck MD at 21:56 EST ,
--- NOTE | 2022-05-26 21:15 | CT_ITS ---
EXAM: CT HEAD WITHOUT INTRAVENOUS CONTRAST CLINICAL INDICATION: Headache TECHNIQUE: Multiple axial images were obtained of the head without intravenous contrast. This CT exam was performed using one or more of the following dose reduction techniques: automated exposure control, adjustment of the mA and/or kV according to patient size, and/or use of iterative reconstruction technique. This report was created using [employer] report generation technology. COMPARISON: None. FINDINGS: BRAIN AND EXTRA-AXIAL SPACES: Unremarkable. No intra- or extra-axial hemorrhage. No evidence of acute infarct. No intracranial mass or mass effect. There is preservation of the reilly/white matter interface. Posterior fossa structures are unremarkable. Ventricles are appropriate for age. No hydrocephalus. Basal cisterns are patent. BONES/JOINTS: Unremarkable. No discrete lytic or blastic abnormalities. SINUSES: Unremarkable as visualized. Clear. MASTOID AIR CELLS: Unremarkable. Clear. ORBITS: Visualized globes, extraocular muscles, optic nerves and retrobulbar fat appear unremarkable. CT/Brain/Head without Contrast IMPRESSION: Negative head/brain CT without intravenous contrast. Electronically Signed: Silverio Heck MD at 21:54 [facility] ,
[2022-05-26 21:18] VITALS: BP 120/80; RESP 16; O2SAT 98
[2022-05-26 22:41] VITALS: BP 111/77; PULSE 88; RESP 16; TEMP 36.6; O2SAT 100
== END 2022-05-26 22:42 | disposition home or self-care (01) ==
PROVIDERS: Emergency Provider Emergency Medicine; PCP Internal Medicine; Referring Provider Emergency Medicine; Visit Provider Emergency Medicine
DX: R51.9 Headache, unspecified (principal); D64.9 Anemia, unspecified; F17.210 Nicotine dependence, cigarettes, uncomplicated; F41.9 Anxiety disorder, unspecified; Z79.899 Other long term (current) drug therapy; E03.9 Hypothyroidism, unspecified; Z79.3 Long term (current) use of hormonal contraceptives
CPT/HCPCS: 70450; 71275; 80053; 84443; 84484; 84703; 85025; 85379; 87428; 93005; 96361; 96374; 96375; 99283; Q9967; A4216

== ENCOUNTER → 2022-05-28 | Outpatient (CLI) | payer BC, SELFPAY | END | disposition home or self-care (01) | LOC: LABSPEC 08:18 | PROVIDERS: PCP Internal Medicine; Referring Provider Internal Medicine; Visit Provider Internal Medicine | DX: D50.9 Iron deficiency anemia, unspecified (principal) | CPT/HCPCS: 82274 ==

== ENCOUNTER → 2022-06-07 | Outpatient (CLI) | payer BC, SELFPAY ==
[2022-06-11 21:07] LABS: Chlamydia By Nucleic Acid AMP Negative (Negative)
[2022-06-11 21:25] LABS: Gonococcus By Nucleic Acid AMP Negative (Negative)
== END | disposition home or self-care (01) ==
LOC: LABSPEC 16:21
PROVIDERS: PCP Internal Medicine; Visit Provider Obstetrics & Gynecology
DX: Z11.3 Encounter for screening for infections with a predominantly sexual mode of transmission (principal)
CPT/HCPCS: 87491; 87591

== ENCOUNTER → 2022-09-11 | Outpatient (CLI) | payer BC, SELFPAY ==
[2022-09-11 12:37] LABS: Absolute Lymphocyte Count 2.36 X10^3/uL (0.83-4.51); Absolute Neutrophil Count 2.9 X10^3/uL (2.0-7.7); Basophil# 0.05 X10^3/uL; Basophil% 0.9 % (0-1); Eosinophil# 0.13 X10^3/uL; Eosinophils% 2.2 % (0-5); Hematocrit 27.8 % (37-47); Lymphocyte # 2.36 X10^3/ul (0.83-4.51); Lymphocyte % 40.1 % (19-41); Mean Corp Hgb Conc 28.8 g/dL (32-36); Mean Corpuscular Hgb 15.4 pg (27.0-32.0); Mean Corpuscular Volume 53.7 fL (81-99); Monocyte# 0.45 X10^3/uL; Monocyte% 7.7 % (0-10); NRBC Flagged by Analyzer 0 % (0-5); Neutrophil # 2.88 X10^3/uL (2.7-7.7); Neutrophil % 48.9 % (47-70); POSITIVE MORPHOLOGY YES; Platelet Count 300 K/mm3 (150-450); RBC Distribution Width CV 24.9 % (11.6-14.6); RBC Distribution Width SD 43.6 fl (35.1-43.9); Red Blood Count 5.18 M/mm3 (4.2-5.4); White Blood Count 5.9 K/mm3 (4.4-11.0)
[2022-09-11 12:44] LABS: Differential Indicated SCAN CRITERIA MET
[2022-09-11 13:12] LABS: ALB/GLOB Ratio 1.1 RATIO (0.9-2.4); AST(SGOT) 17 U/L (15-37); Alanine Aminotransfer ALT/SGPT 21 U/L (13-56); Albumin, Serum 4.1 g/dL (3.2-5.0); Alkaline Phosphatase 51 U/L (45-117); Anion Gap 1 (5-15); BUN 14 mg/dL (7-18); BUN/Creat Ratio 16.7 RATIO (10-20); Calcium,Total 9.6 mg/dL (8.5-10.1); Chloride 109 mmol/L (98-107); Creatinine, Serum 0.84 mg/dL (0.55-1.02); EST Glomerular Filtration Rate 83 mL/min (>60); Est Glom Filt Rate - Afr Amer 100 mL/min (>60); Ferritin 2 ng/mL (8-252); Globulin 3.6 g/dL (2.2-4.2); Glucose 88 mg/dL (74-106); Iron 14 ug/dL (50-170); Iron Binding Capacity,Total 413 ug/dL (250-450); PERCENT IRON SATURATION 3.4 % (15.0-55.0); Potassium 4.1 mmol/L (3.5-5.1); Protein, Total 7.7 g/dL (6.4-8.2); Sodium Level 136 mmol/L (136-145)
[2022-09-11 13:16] LABS: Anisocytosis 3+; Differential Comment SCANNED; Hypochromasia 2+; Poikilocytosis 2+
[2022-09-12 15:08] LABS: Endomysial Antibody IgA Negative (Negative); Immunoglobulin A 127 mg/dL (87-352); t-Transglutaminase IgA <2 U/mL (0-3)
== END | disposition home or self-care (01) ==
LOC: BIMLAB 10:29
PROVIDERS: PCP Internal Medicine; Visit Provider Internal Medicine
DX: D50.9 Iron deficiency anemia, unspecified (principal)
CPT/HCPCS: 36415; 80053; 82728; 82784; 83516; 83540; 83550; 85025; 86255

== ENCOUNTER → 2022-11-19 | Outpatient (CLI) | payer BC, SELFPAY ==
[2022-11-19 10:48] LABS: hCG Titer Quant., Serum 2 mIU/mL (1-3)
== END | disposition home or self-care (01) ==
LOC: PAVLAB 09:20
PROVIDERS: PCP Internal Medicine; Referring Provider Obstetrics & Gynecology; Visit Provider Obstetrics & Gynecology
DX: O20.0 Threatened abortion (principal); Z3A.00 Weeks of gestation of pregnancy not specified
CPT/HCPCS: 36415; 84702

== ENCOUNTER → 2023-02-04 | Outpatient (CLI) | payer BC, SELFPAY ==
[2023-02-04 14:11] LABS: Absolute Neutrophil Count 3.5 X10^3/uL (2.0-7.7); Basophil# 0.05 X10^3/uL; Basophil% 0.7 % (0-1); Eosinophil# 0.36 X10^3/uL; Eosinophils% 5.1 % (0-5); Hematocrit 39.3 % (37-47); Hemoglobin 12.4 g/dL (12.0-15.0); Lymphocyte % 38.5 % (19-41); Mean Corp Hgb Conc 31.6 g/dL (32-36); Mean Corpuscular Hgb 22.3 pg (27.0-32.0); Mean Corpuscular Volume 70.6 fL (81-99); Monocyte# 0.45 X10^3/uL; Monocyte% 6.4 % (0-10); NRBC Flagged by Analyzer 0 % (0-5); Neutrophil # 3.45 X10^3/uL (2.7-7.7); Neutrophil % 49.2 % (47-70); Platelet Count 263 K/mm3 (150-450); RBC Distribution Width CV 14.3 % (11.6-14.6); RBC Distribution Width SD 34.9 fl (35.1-43.9); Red Blood Count 5.57 M/mm3 (4.2-5.4)
[2023-02-04 14:37] LABS: PTHIN 73.4 pg/mL (18.4-80.1)
[2023-02-04 14:47] LABS: Vitamin B12 1395 pg/mL (211-911); Vitamin D,25 Hydroxy 43.2 ng/mL
[2023-02-04 14:50] LABS: Hemoglobin A1c 5.4 % (3.8-5.6)
[2023-02-04 15:20] LABS: ALB/GLOB Ratio 1.1 RATIO (0.9-2.4); AST(SGOT) 25 U/L (15-37); Alanine Aminotransfer ALT/SGPT 55 U/L (13-56); Albumin, Serum 3.9 g/dL (3.2-5.0); Alkaline Phosphatase 49 U/L (45-117); Anion Gap 7 (5-15); BUN 19 mg/dL (7-18); BUN/Creat Ratio 19.8 RATIO (10-20); Calcium,Total 8.8 mg/dL (8.5-10.1); Chloride 106 mmol/L (98-107); Cholesterol 182 mg/dL (200); Creatinine, Serum 0.96 mg/dL (0.55-1.02); EST Glomerular Filtration Rate 71 mL/min (>60); Est Glom Filt Rate - Afr Amer 86 mL/min (>60); Ferritin 57 ng/mL (8-252); Globulin 3.6 g/dL (2.2-4.2); Glucose 109 mg/dL (74-106); High Density Lipoprotein 70 mg/dL; Iron 73 ug/dL (50-170); Iron Binding Capacity,Total 283 ug/dL (250-450); Magnesium 2.2 mg/dL (1.6-2.6); PERCENT IRON SATURATION 25.8 % (15.0-55.0); Potassium 3.5 mmol/L (3.5-5.1); Protein, Total 7.5 g/dL (6.4-8.2); Sodium Level 137 mmol/L (136-145); Triglycerides 174 mg/dL; Very Low Density Lipoprotein 35 mg/dL (5-40)
[2023-02-04 22:00] LABS: Xtra Tube EP Lab EXTRA TUBE
[2023-02-05 15:35] LABS: Thyroid Stim Hormone (TSH) 1.92 uIU/mL (0.358-3.74)
[2023-02-15 12:09] LABS: Vitamin B1, Thiamine 140.5 nmol/L (66.5-200.0); Zinc, Plasma or Serum 88 ug/dL (44-115)
== END | disposition home or self-care (01) ==
PROVIDERS: Internal Medicine Hematology & Oncology; PCP Internal Medicine
DX: E03.9 Hypothyroidism, unspecified (principal); Z98.84 Bariatric surgery status; D56.3 Thalassemia minor; D50.0 Iron deficiency anemia secondary to blood loss (chronic)
CPT/HCPCS: 36415; 80053; 80061; 82306; 82607; 82728; 82746; 83036; 83540; 83550; 83735; 83970; 84425; 84443; 84630; 85025

== ENCOUNTER → 2023-04-09 | Outpatient (CLI) | payer BC, SELFPAY ==
--- OUTSIDE RECORDS SUMMARY | 2023-04-09 09:15 | XMS RPT_ITS | CCD ---
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 Name Role Phone IRENE CARLISLE Unavailable Unavailable ERIC YOUNG Unavailable Unavailable IRENE CARLISLE Unavailable Unavailable LAM RODRIGUEZ Unavailable Unavailable LAM RODRIGUEZ Unavailable Unavailable IRENE CARLISLE ([facility]) Unavailable Unavailable ERIC YOUNG Unavailable Unavailable IRENE CARLISLE ([employer]) Unavailable Unavailable LAM RODRIGUEZ Unavailable Unavailable LAM RODRIGUEZ Unavailable Unavailable Carri Amado MD Primary Care Provider Unava ilable Allergies Allergy Classification Reported Allergen(s) Allergy Type Date of Onset Reaction(s) Facility (4 sources) Penicillins; Translations: [PENICILLINS] Propensity to adverse reactions (disorder) 6 [facility] Medications Completed/Discontinued Medications Medication Drug Class(es) Dates Sig (Normalized) Sig (Original) CELEBRATE CALCIUM SOFT CHEWS (2 sources) Start: 09-20-2016 CELEBRATE CALCIUM SOFT CHEWS Celebrate Calcium Soft Chews-Take 1 two (2) times a day. 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] 08-16-2016 Chronic Hepatitis (3 sources) Nonalcoholic steatohepatitis (TEIXEIRA); Translations: [Nonalcoholic steatohepatitis] Onset: 08-16-2016 08-16-2016 Chronic Nausea and vomiting (1 source) Diarrhea and vomiting; Translations: [Vomiting, unspecified] Episodic Residual codes; unclassified (2 sources) Obstructive sleep apnea syndrome; Translations: [Obstructive sleep apnea (adult) (pediatric)] 08-16-2016 Chronic Thyroid disorders (3 sources) Hypothyroidism, unspecified; Translations: [Hypothyroidism] Onset: 08-16-2016 08-16-2016 Chronic Unclassified (1 source) Obstructive sleep apnea (adult) (pediatric); Translations: [Obstructive sleep apnea (adult) (pediatric)] Onset: 08-16-2016 Chronic Unclassified (1 source) Unknown / UNK(Unknown) Onset: 08-16-2016 Past or Other Problems Problem Classification Problem Date Documented Da te Episodic/Chronic Deficiency and other anemia (1 source) Other iron deficiency anemias; Translations: [Other iron deficiency anemias] Onset: 03-11-2017 Episodic Other gastrointestinal disorders (1 source) Bariatric surgery status; Translations: [Bariatric surgery status] Onset: 03-11-2017 Episodic Results Test Name Value Interpretation Reference Range Facil ity Vital Signs Date Time Vital Sign Value Performing Clinician Faci lity 06-25-2022 11:37-0400 Body temperature 98.01 [degF] Alfa Romero APRN.[employer] Work Phone: [facility] 06-25-2022 11:37-0400 Body weight 63.78 kg Alfa Romero APRN.[employer] Work Phone: [facility] 06-25-2022 11:37-0400 Diastolic blood pressure 70 mm[Hg] Alfa Romero APRN.[employer] Work Phone: [facility] 06-25-2022 11:37-0400 Heart rate 95 /min Alfa Romero APRN.[employer] Work Phone: [facility] 06-25-2022 11:37-0400 Respiratory rate 21 /min Alfa Romero APRN.[employer] Work Phone: [facility] 06-25-2022 11:37-0400 SaO2% (BldA) [Mass fraction] 100 % Alfa Romero APRN.CNP Work Phone: [facility] 06-25-2022 11:37-0400 Systolic blood pressure 108 mm[Hg] Alfa Romero APRN.CNP Work Phone: [facility] Encounters Encounter Date Encounter Type Care Provider Facility Start: 06-26-2022 Telephone encounter Alfa frances APRN.CNP Work Phone: [facility] Plan of Treatment Date Care Activity Detail Author Start: 04-08-2022 DEPRESSION ASSESSMENT DEPRESSION ASSESSMENT [facility] Start: 12-07-2021 Influenza vaccination INFLUENZA (#1) [facility] Start: 2019 HPV TESTING HPV TESTING [facility] Start: 2010 PAP TESTING PAP TESTING [facility] Start: 2008 Urine microalbumin profile DTAP,TDAP,TD (1 - Tdap) [facility] Start: 2007 ANNUAL PCP TEAM CHRONIC DISEASE VISIT ANNUAL PCP TEAM CHRONIC DISEASE VISIT [facility] Start: 2007 HEPATITIS C SCREENING HEPATITIS C SCREENING [facility] Start: 2007 HIV SCREENING HIV SCREENING [facility] Start: 1989 COVID-19 VACCINE (#1) COVID-19 VACCINE (#1) [facility] Start: 1989 HEPATITIS B (1 of 3 - 3-dose series) HEPATITIS B (1 of 3 - 3-dose series) [facility] SARS-CoV-2 (COVID-19 ) RNA [Presence] in Respiratory specimen by NANO with probe detection 2019 CORONAVIRUS Microbiology Routine Vomiting and diarrhea 06/25/2022 2:27 PM EDT [facility] Work Phone: Payers Date Payer Category Payer Unknown [employer] BLUE CARD PPO OOS [id number] 2022-Present [phone] [id number] [place] [address] PPO [id number] Unknown [id number] Social History Date Type Detail Facility Start: 06-25-2022 Tobacco smoking stat us NHIS Ex-smoker [facility] Start: 08-16-2009 End: 01-17-2016 History of tobacco use Current smoker [facility] Start: 08-16-2009 End: 01-17-2016 History of tobacco use Cigarette Smoker [facility] Start: 06-25-2022 Cigarettes smoked cu rrent (pack per day) - Reported 0.5 [facility] Start: 06-25-2022 Tobacco use and exposure Smoke less tobacco non-user [facility] Start: 06-25-2022 Alcohol intake 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 Patient given results and verbalized understanding of instructions given. Angela Watson Please notify that covid testing negative. Continue with plan of care as discussed during visit. documented in this encounter [facility] History of Present illness Narrative 06-25-2022 Alfa Romero APRN.CNP - 06/25/2022 12:52 PM EDT Note Date & Type Note Facility 06-25-2022 History of Presen t illness Narrative Subjective HPI HPI Brittney Ramos is a 32 year old female who presents today for CC of vomiting, diarrhea. This started 4 days ago. Has tried otc medication for relief. Symptoms are worsened by nothing. Risk factors sick exposures at home. Hx of gastric bypass. Last void few hours ago. Denies possibility of being . .Patient presents with: Vomiting: Diarrhea, stomach pain, nausea x 4 days PAST MEDICAL HISTORY Diagnosis Date Beta minor thalassemia GERD (gastroesophageal reflux disease) Hypothyroid Impaired fasting glucose TEIXEIRA (nonalcoholic steatohepatitis) LASHANDA (obstructive sleep apnea) PAST SURGICAL HISTORY Procedure Laterality Date LAPS GSTR RSTCV PX W/BYP LOIS-EN-Y LIMB <150 CM 09/05/2016 ALLERGIES Penicillins MEDICATIONS IRON, CARBONYL ORAL Take by mouth. CELEBRATE MV TABLETS Celebrate tablets-Take 1 tablets two (2) times a day. CELEBRATE CALCIUM SOFT CHEWS Celebrate Calcium Soft Chews-Take 1 two (2) times a day. CELEBRATE ESSENTIAL MULTI 4 IN 1 (1/2 daily) CELEBRATE ESSENTIAL MULTI 4 IN 1- Take 1/2 serving (=1 scoop), twice daily in 8 oz 1%milk. levothyroxine (SYNTHROID) 75 mcg tablet Take 75 mcg by mouth once daily. ondansetron orally disintegrating (ZOFRAN ODT) 4 mg disintegrating tablet Take 1 tablet by mouth every 6 hours as needed for nausea/vomiting. VOL-PLUS 27 mg iron- 1 mg tab Take 1 tablet by mouth once daily. (Patient not taking: Reported on 06/25/2022) ursodiol (ACTIGALL) 300 mg capsule Take 1 capsule by mouth twice daily. (Patient not taking: Reported on 09/09/2018 ) FAMILY HISTORY Problem Relation Age of Onset Diabetes Father Hypertension Mother Diabetes Maternal Grandfather Social History Tobacco Use Smoking status: Former Packs/day: 0.50 Years: 6.00 Pack years: 3.00 Types: Cigarettes Start date: 08/16/2009 Quit date: 01/17/2016 Years since quittin.4 Smokeless tobacco: Never Substance Use Topics Alcohol use: No Alcohol/week: 2.5 standard drinks Types: 1 Glasses of Wine (5oz) per week Comment: 1 time per month Drug use: No Review of Systems Constitutional: Negative for fever. HENT: Negative for congestion, ear pain, nosebleeds and sore throat. Respiratory: Negative for cough, shortness of breath and wheezing. Gastrointestinal: Positive for abdominal pain, diarrhea, nausea and vomiting. Negative for blood in stool and constipation. Musculoskeletal: Negative for neck pain. Objective Blood pressure 108/70, pulse 95, temperature 36.7 C (98 F), resp. rate 21, weight 63.8 kg (140 lb 9.6 oz), SpO2 100 %, unknown if currently . Physical Exam Constitutional: General: She is not in acute distress. Appearance: Normal appearance. She is not toxic-appearing. Cardiovascular: Rate and Rhythm: Normal rate and regular rhythm. Heart sounds: Normal heart sounds. Pulmonary: Effort: Pulmonary effort is normal. Breath sounds: Normal breath sounds. Abdominal: General: Bowel sounds are normal. Palpations: Abdomen is soft. Tenderness: There is no abdominal tenderness. Skin: General: Skin is warm and dry. ASSESSMENT/PLAN: 1. Vomiting and diarrhea - ICD9: 787.03, 787.91, ICD10: R11.10, R19.7 ASSESSMENT/PLAN: 1. Viral gastroenteritis - ICD9: 008.8, ICD10: A08.4 -Discussed gentle rehydration -BRAT Diet (Bananas, Rice, Apple Sauce, [place]) -If no better in 3-5 days follow up back in clinic or with primary care provider -Follow up in the ER with signs of dehydration, increasing abdominal pain, high fever, or blood in vomit or stool. -declines stool testing. - ONDANSETRON 4 MG DISINTEGRATING TABLET - 2019 CORONAVIRUS Alfa Romero APRN.JUSTIN documented in this encounter [facility] History of Past illness Narrative 09-20-2016 Note Date & Type Note Facility documented as of this encounter (statuses as of 06/25/2022) [facility] History of Past illness Narrative 09-20-2016 Note Date & Type Note Facility documented as of this encounter (statuses as of 06/26/2022) [facility] Evaluation note Note Date & Type Note Facility documented in this encounter [facility] Summary Purpose Family History No Family History Records FoundNo Family History Records Found Advance Directives No Advanced Directives Records FoundNo Advanced Directives Records Found Additional Source Comments INFORMATION SOURCE (unrecogn ized section and content) DATE CREATED AUTHOR AUTHOR'S ORGANIZ ATION 10/01/2017 [facility] Source Comments (unrecognize d section and content) In the event this informatio n is protected by the Federal Confidentiality of Alcohol and Drug Abuse Patient Records regulations: The Federal rules restrict any use of the information to criminally investigate or prosecute any alcohol or drug abuse patient.[facility] the event this information is protected by the Federal Confidentiality of Alcohol and Drug Abuse Patient Records regulations: The Federal rules restrict any use of the information to criminally investigate or prosecute any alcohol or drug abuse patient.[facility] Reason for Visit (unrecogniz ed section and content) Reason Comments Results Care Teams (unrecognized sec tion and content) Beater Machine Operator Relationship Specialty Start Date End Date Carri Amado MD NO FORWARDING ADDRESS PCP - General Internal Medicine 06/25/22 FOR RECORDS PERTAINING TO PATIENTS WHO ARE OR HAVE BEEN ENROLLED IN A CHEMICAL DEPENDENCY/SUBSTANCEABUSE PROGRAM, SOME INFORMATION MAY BE OMITTED. This clinical summary was aggregated from multiple sources. Caution should be exercised in using it in the provision of clinical care. This summary normalizes information from multiple sources, and as a consequence, information in this document may materially change the coding, format and clinical context of patient data. In addition, data may be omitted in some cases. CLINICAL DECISIONS SHOULD BE BASED ON THE PRIMARY CLINICAL RECORDS. [facility]. provides no warranty or guarantee of the accuracy or completeness of information in this document.
[2023-04-09 12:53] LABS: Thyroid Stim Hormone (TSH) 2.94 uIU/mL (0.358-3.74)
== END | disposition home or self-care (01) ==
PROVIDERS: PCP Internal Medicine; Visit Provider Internal Medicine
DX: F41.9 Anxiety disorder, unspecified (principal); E03.9 Hypothyroidism, unspecified
CPT/HCPCS: 36415; 84443

== ENCOUNTER → 2023-10-01 | Outpatient (CLI) | payer BC, SELFPAY ==
[2023-10-01 09:35] LABS: Hematocrit 42.6 % (37-47); Hemoglobin 13.3 g/dL (12.0-15.0); Mean Corp Hgb Conc 31.2 g/dL (32-36); Mean Corpuscular Volume 70.4 fL (81-99); Platelet Count 231 K/mm3 (150-450); RBC Distribution Width CV 14.4 % (11.6-14.6); RBC Distribution Width SD 35.2 fl (35.1-43.9); Red Blood Count 6.05 M/mm3 (4.2-5.4); White Blood Count 6.3 K/mm3 (4.4-11.0)
[2023-10-01 09:36] LABS: Hemoglobin A1c 5.1 % (3.8-5.6)
[2023-10-01 09:38] LABS: AST(SGOT) 16 U/L (15-37); Alanine Aminotransfer ALT/SGPT 24 U/L (13-56); Albumin, Serum 3.9 g/dL (3.2-5.0); Alkaline Phosphatase 58 U/L (45-117); Anion Gap 4 (5-15); BUN 12 mg/dL (7-18); BUN/Creat Ratio 12.4 RATIO (10-20); Calcium,Total 9.3 mg/dL (8.5-10.1); Chloride 106 mmol/L (98-107); Cholesterol 161 mg/dL (200); Creatinine, Serum 0.96 mg/dL (0.55-1.02); EST Glomerular Filtration Rate 70 mL/min (>60); Est Glom Filt Rate - Afr Amer 85 mL/min (>60); Globulin 3.8 g/dL (2.2-4.2); Glucose 86 mg/dL (74-106); High Density Lipoprotein 61 mg/dL; Potassium 3.9 mmol/L (3.5-5.1); Protein, Total 7.7 g/dL (6.4-8.2); Sodium Level 138 mmol/L (136-145); Triglycerides 110 mg/dL; Very Low Density Lipoprotein 22 mg/dL (5-40)
[2023-10-01 10:06] LABS: Scan Indicated on CBC? Y/N NO
== END | disposition home or self-care (01) ==
LOC: PAVLAB 09:01
PROVIDERS: PCP Internal Medicine; Referring Provider Pharmacist Pharmacist Clinician (PhC)/ Clinical Pharmacy Specialist; Visit Provider Pharmacist Pharmacist Clinician (PhC)/ Clinical Pharmacy Specialist
DX: F33.1 Major depressive disorder, recurrent, moderate (principal); F41.1 Generalized anxiety disorder; F50.81 Binge eating disorder
CPT/HCPCS: 36415; 80053; 80061; 83036; 85027